=== PATIENT | female | born 1955 | race Caucasian/White ===

== ENCOUNTER 2016-06-09 12:41 | Inpatient (IN) | payer MEDICARE ==
[~2016-06-09] VITALS: Ht 175.3 cm; Wt 62.2 kg
[~2016-06-09 12:41] MED LIST: ACET1CAP18 PO; AZAT50 PO; CHOL1TAB42 PO; CICL8KIT2 TOPICAL; DIGO0.25 PO; DULO20 PO; ESSE250T PO; ESTR1TAB PO; GABA300C5 PO; INSULIN PUMP; KETO2CRE TOPICAL; LEVO112T2 PO; LIDO1SOL8 SWISH-SWAL; MEDR2.5T2 PO; NOVOLOGP2 SQ; ORAL0.1P OROPHARYNG; PANT40TA3 PO; PROM1SUP9 RECTAL; TIZA2TAB PO; ULTR50TA5 PO; ZOLP10TA3 PO; ZYRT10CA PO
[2016-06-09] MEDS ORDERED: CRAN250C PO (13:08)
[2016-06-09] MEDS ORDERED: CALC8.5C CHEW (13:08)
[2016-06-09] MEDS ORDERED: HYDR-3583 PO ×2 (13:08)
[2016-06-09] MEDS ORDERED: DIPH25CA PO (13:08)
[2016-06-09] MEDS ORDERED: PRED10 PO (13:34)
[2016-06-09] MEDS ORDERED: TRAM50TA PO (13:34)
[2016-06-09] MEDS ORDERED: PRED1 PO (13:34)
--- NOTE | 2016-06-20 16:02 | MH ---
cc: MICHELET OMALLEY M.D., ROHIT K. M.D. DATE OF ADMISSION 06/21/2016 ADMISSION DIAGNOSIS Lumbar degenerative disk disease. HISTORY OF PRESENT ILLNESS This is a 60-year-old female who presented to us for an evaluation of low back pain. She fell in 2013 on . Six weeks later she saw her benzene operator and discussed with them the pain she was having. They obtained x-rays and an MRI and the pain was controlled with muscle relaxants, pain medication, ice and heat. Two months ago the pain became unbearable. She saw her primary care doctor who ordered an MRI scan and she was referred to PT. She states her primary care physician called her back and told her not to go to PT but to see us for an evaluation. She states the low back pain radiates into the right groin and anterolateral leg. She states there is a constant ache and burning. She occasionally gets pain in the left posterior lateral leg. She states she currently has weakness in the right leg and it masood and she feels like she could fall. She has kneeled on the floor and was too weak to get up with her right leg. The pain improves with laying down. She states the leg symptoms bother her more than the back because of leg effects her mobility but they are both bad. PAST MEDICAL HISTORY 1. Diabetes mellitus. 2. Hypothyroidism. 3. Gastroesophageal reflux disease 4. Osteoarthritis. 5. Depression. 6. Behcet's disease. PAST SURGICAL HISTORY 1. Tubal ligation March 1988. 2. Right knee cartilage removal June 1973. 3. Left ulnar nerve transposition spring in 1976. 4. Cholecystectomy 1983. 5. Tonsillectomy in 1960. MEDICATIONS Under current medications: 1. Azathioprine 100 milligrams in the morning and at night. This was held one week before surgery and is to be held one week after surgery. 2. Prednisone 15.5 milligrams at 5:30 in the morning and 1.5 milligrams at noon time. 3. Levothyroxine 0.112 micrograms q.h.s. 4. Digoxin 0.25 milligrams daily. 5. Duloxetine hydrochloric acid 80 milligrams at 9:30. 6. Tramadol 50 milligrams four times daily. 7. Gabapentin 300 milligrams q.h.s. 8. Estradiol 1 milligram 9:30 a.m. 9. Medroxyprogesterone acetate 2.5 mg 9:30 a.m. 10. Pantoprazole 40 mg daily. 11. Tizanidine 2 mg b.i.d. 12. Triamcinolone paste 0.1% b.i.d. p.r.n. flare-up. 13. [place] 10 / 325 q.6h. 14. Viscous lidocaine 2% solution 15 ml orally q.6h. 15. Magic Mouthwash 5 ml swish and spit four times daily. 16. Ketoconazole 2% cream apply topically b.i.d. to fungal skin infection. 17. Ciclopirox 8% varnish apply to fingernails topically daily. 18. Benadryl 25 mg p.r.n. q.h.s. 19. Vitamin D3 1000 international units daily. 20. Calcium 1000 mg b.i.d. 21. Multivitamin daily. 22. Magnesium 500 milligrams. 23. Cranberry 4200 mg four times a day. 24. Cetirizine HCL 10 mg daily. 25. She is on an insulin pump. FAMILY HISTORY Her mother is at 72 years old, had Alzheimer's disease. Her father is at 60 years old of heart failure. Her sister is alive at 62 years old in poor health. Her brother is at 19 years old of an accident at work. 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 She is . She has two children. She does not smoke, although does state that she smokes marijuana at bedtime. She drinks alcohol 0-2 drinks daily. REVIEW OF SYSTEMS CONSTITUTIONAL: She denies any fever or chills. EARS, NOSE, AND THROAT: Positive for mouth sores and difficulty swallowing related to her Beh et's disease. CARDIOVASCULAR: No chest pain. RESPIRATORY: No cough or shortness of breath. GENITOURINARY: Positive for urinary urgency and frequency. MUSCULOSKELETAL: Positive for low back pain. SKIN: No rashes. Positive for pruritus. NEUROLOGICAL: No difficulty with speech or memory. GASTROINTESTINAL: No diarrhea. Positive for constipation. Positive for nausea. PSYCHIATRIC: Positive for anxiety and depression symptoms. ENDOCRINE: Polyuria and polydipsia. HEMATOLOGIC: Positive for bruising or bleeding tendencies. PHYSICAL EXAMINATION HEAD: Normocephalic, atraumatic. NECK: Supple. No carotid bruits heard on auscultation. LUNGS: Clear to auscultation bilaterally. HEART: Regular rate and rhythm. Normal S1-S2. ABDOMEN: Soft and nontender. Positive bowel sounds. SKIN: Reveals no cyanosis or erythema. MUSCULOSKELETAL: She has left iliopsoas weakness at 3/5 otherwise her strength her 5/5 in the lower extremities. She ambulates with a cane. She wears a right knee brace for a partially torn right ACL. NEUROLOGICAL: Awake and alert, oriented. Cranial nerves II through XII appear grossly intact. Speech is fluent. Comprehension is good. Sensation is intact in the lower extremities. Left patella and bilateral Achilles reflexes are very diminished in the lower extremities. The right patella is not assessed secondary to her knee brace and partially torn right ACL. IMAGING Data reviewed, reviewed an MRI of the lumbar spine from April 28, 2016 which reveals severe L4-L5 spinal stenosis from a combination of disc protrusion and facet hypertrophy as well as severe degenerative disk disease with disk height collapse and grade 1 spondylolisthesis. She also has moderate to severe L2-L3 spinal stenosis from a disk protrusion and facet arthropathy and degenerative disk disease. IMPRESSION A 60-year-old female with a chronic history of low back pain with exacerbation several months ago. Her pain radiates into the right lower extremity down to the foot, at times the lateral aspect of the calf. She also has partial chronic right ACL tear and uses a brace and relates pain from the knee and swelling at times also. She has been taking [place] 10/325 4-5 pills daily along with Gabapentin and muscle relaxers but this is not controlling her pain. She is very limited in her activity status. She has severe L4-L5 and L2-L3 spinal stenosis along with a grade 1 L4-L5 spondylolisthesis with degenerative disk disease. PLAN We have discussed treatment options which include physical therapy to prevent further deconditioning and weakness and also the possibility of surgery which would involve an L2-L3 decompressive laminectomy and L4-L5 transforaminal decompression with interbody fusion. The procedure as well as the risks, benefits, alternative and recovery time were explained in great detail with the patient. We have discussed the risks involved with surgery include but not limited to bleeding, infection, muscle weakness, voice hoarseness, difficulty swallowing, heart attack, stroke, blood clots, non fusion, scar tissue formation among others. The procedure was explained using spine models in the office and all of her questions were answered to her satisfaction. No guarantees as to the results of the surgery were given to the patient. She also has several medical comorbidities in particular insulin-dependent diabetes mellitus, SVT and Behcet's disease with chronic steroid therapy which places her at least a moderate risk for complications which include the healing process and infection. The patient again states that she understands the procedure as well as the risks involved, especially given her medical comorbidities and she is requesting that we proceed with surgical intervention. She was therefore scheduled accordingly. DICTATED BY: Waylon Benton PA-C MD RAAD Rodriguez/KK /3:03 PM /3:32 PM
[2016-06-21] MEDS ORDERED: NOVOLOGP2 SQ (06:20)
[2016-06-21] MEDS ORDERED: VANCOMYCIN 1,000 MG/NS 250ML (for <70 kg) IV SCH ×2 (06:30)
[2016-06-21] MEDS ORDERED: LACTATED RINGER'S 1000 ML IV SCH (06:30)
[2016-06-21] MEDS ORDERED: INSULIN HUMAN REGULAR 1,000 UNITS/10 ML VIAL SQ PRN (06:30)
[2016-06-21] MEDS ORDERED: SODIUM CHLORID 0.9% 500 ML IV SCH (06:30)
[2016-06-21] MEDS ORDERED: SODIUM CHLOR 0.9% 1000 ML INJ 1,000 ML IV SCH (06:30)
[2016-06-21] MEDS ORDERED: METOPROLOL TARTRATE 25 MG TAB PO PRN (06:30)
[2016-06-21 06:38] LABS: AUTOMATED NEUTROPHIL # 4.6 TH/MM3 (1.8-7.7); BASOPHIL # 0.1 TH/MM3 (0-0.2); EOSINOPHIL % 0.2 % (0.0-4.0); HEMATOCRIT 34.9 % (35.0-46.0); LYMPHOCYTE # 0.7 TH/MM3 (1.0-4.8); MEAN CELL VOLUME 121.3 FL (80.0-100.0); MEAN CORPUSCULAR HEMOGLOBIN 42.6 PG (27.0-34.0); MEAN CORPUSCULAR HGB CONC 35.1 % (32.0-36.0); MONO % 12.9 % (0.0-8.0); NEUT % 74.9 % (16.0-70.0); PLATELET COUNT 432 TH/MM3 (150-450); RED BLOOD COUNT 2.87 MIL/MM3 (4.00-5.30); RED CELL DISTRIBUTION WIDTH 15.3 % (11.6-17.2); WHITE BLOOD COUNT 6.2 TH/MM3 (4.0-11.0)
[2016-06-21 06:42] VITALS: BP 142/73; PULSE 89; RESP 20; TEMP 98.6; O2SAT 100
[2016-06-21 06:58] LABS: HEMO FLAGS AUTO DIFF
[2016-06-21 07:28] LABS: BANDS 11 % (0-6); EOSINOPHILS 1 % (0-4); MYELOCYTES 1 % (0-0); PLATELET ESTIMATE SMEAR NORMAL (NORMAL); PLATELET MORPHOLOGY NORMAL (NORMAL); POLYS (SEG NEUTROPHILS) 68 % (16-70); SCAN/DIFF FINAL DIFF MANUAL; WBC DIFF SAMPLE 100
[2016-06-21] MEDS ORDERED: THROMBIN (TOPICAL) 5,000 UNIT VIAL ONE (07:40)
[2016-06-21] MEDS ORDERED: GELFOAM SIZE 100 ONE ×2 (07:40→07:47)
[2016-06-21] MEDS ORDERED: BUPIVACAINE/EPINEPHRINE 0.25% PF 30 ML VIAL ONE (07:42)
[2016-06-21] MEDS ORDERED: HYDROmorphone HCL PF 2 MG/ML VIAL ONE (08:01)
[2016-06-21] MEDS ORDERED: ARTIFICIAL TEARS OPTH OINT 3.5 APPLIC/3.5 GM TUBO ONE (08:01)
[2016-06-21] MEDS ORDERED: KETAMINE HCL 500 MG/5 ML VIAL ONE (08:01)
[2016-06-21] MEDS ORDERED: HYDROCORTISONE SOD SUCCINATE 100 MG VIAL ONE (08:05)
[2016-06-21] MEDS ORDERED: MIDAZOLAM HCL 2 MG/2 ML VIAL ONE (08:07)
[2016-06-21] MEDS: VANCOMYCIN HCL 1000 MG VIAL ONE ×2 (09:01→09:11)
[2016-06-21] MEDS ORDERED: BUPIVACAINE/EPINEPHRINE 0.5% 50 ML VIAL INFIL ONE (09:01)
[2016-06-21] MEDS ORDERED: VANCOMYCIN HCL 1000 MG VIAL OTHER ONE (11:54)
[2016-06-21] MEDS ORDERED: PHENYLEPH/NS 1000 MCG/10 ML SYR IV ONE (12:00)
[2016-06-21] MEDS ORDERED: NORMOSOL R INJ 1,000 ML IV ONE (12:00)
[2016-06-21] MEDS ORDERED: SODIUM CHLOR 0.9% 250 ML INJ 500 ML IV ONE (12:00)
[2016-06-21] MEDS ORDERED: ONDANSETRON HCL 4 MG/2 ML VIAL IV PUSH ONE (12:00)
[2016-06-21] MEDS ORDERED: PROPOFOL 200 MG/20 ML AMP IV ONE (12:00)
[2016-06-21] MEDS ORDERED: fentaNYL CITRATE 250 MCG/5 ML AMP ONE (12:38)
[2016-06-21] MEDS ORDERED: *morphine SULFATE 8 MG/ML PERIprocedure ONLY ONE ×2 (12:43→13:09)
[2016-06-21] MEDS ORDERED: LIDOCAINE VISCOUS 2% SOLN 15 ML UDC SWISH-SWAL PRN (12:45)
[2016-06-21] MEDS ORDERED: CALCIUM GLUCONATE INJ 1 GM in SODIUM CHLORIDE 0.9% INJ 100 ML IV PRN (12:45)
[2016-06-21] MEDS ORDERED: SODIUM CHLORIDE 0.9% FLUSH 5 ML FLUSH IVF PRN (12:45)
[2016-06-21] MEDS ORDERED: diphenhydrAMINE HCL 50 MG/ML VIAL IV PRN (12:45)
[2016-06-21] MEDS ORDERED: POTASSIUM CHLOR 20 MEQ PREMIX 100 ML IV PRN (12:45)
[2016-06-21] MEDS ORDERED: MAGNESIUM HYDROXIDE SUSP 30 ML CUP PO PRN (12:45)
[2016-06-21] MEDS ORDERED: CYCLOBENZAPRINE HCL 10 MG TAB PO PRN (12:45)
[2016-06-21] MEDS ORDERED: diphenhydrAMINE HCL 25 MG CAP PO PRN (12:45)
[2016-06-21] MEDS ORDERED: BISACODYL 10 MG SUPP PR PRN (12:45)
[2016-06-21] MEDS ORDERED: ALUMINUM/MAGNESIUM/SIMETH 30 ML CUP PO PRN (12:45)
[2016-06-21] MEDS ORDERED: ACETAMINOPHEN/HYDROcodone 325 MG/10 MG TAB PO PRN (12:45)
[2016-06-21] MEDS ORDERED: DEXTROSE 50% IN WATER 50 ML VIAL(D50) IV PUSH PRN (12:45)
[2016-06-21] MEDS ORDERED: traMADol HCL 50 MG TAB PO PRN (12:45)
[2016-06-21] MEDS ORDERED: MAGNESIUM SULFATE INJ 2 GM in SODIUM CHLORIDE 0.9% INJ 100 ML IV PRN (12:45)
[2016-06-21] MEDS ORDERED: RESP: ALBUTEROL 2.5 MG/3 ML NEB (PRN) NEB (12:45)
[2016-06-21] MEDS ORDERED: NALOXONE HCL 0.4 MG/ML AMP IV PRN (12:45)
[2016-06-21] MEDS ORDERED: PROMETHAZINE INJ 25 MG/ML VIAL IM PRN (12:45)
[2016-06-21] MEDS ORDERED: DO NOT ADM ANY ANTICOAGULANT DRUGS XX PRN (12:45)
[2016-06-21] MEDS ORDERED: ONDANSETRON HCL 4 MG/2 ML VIAL IV PRN (12:45)
[2016-06-21] MEDS ORDERED: ACETAMINOPHEN 325 MG TAB PO PRN (12:45)
[2016-06-21] MEDS ORDERED: PROMETHAZINE HCL 25 MG SUPP RECTAL PRN (12:45)
[2016-06-21] MEDS ORDERED: GLUCAGON 1 MG/ML VIAL OTHER PRN (12:45)
[2016-06-21] MEDS ORDERED: cloNIDine HCL 0.1 MG TAB PO PRN (12:45)
--- NOTE | 2016-06-21 12:50 | PD.OP ---
cc: Rafiq Martins Jr., MD Operative Report Date of Surgery: Jun 21, 2016 Preoperative Diagnosis: L2-3 and L4-5 facet and ligamentum flavum hypertrophy with associated disc protrusion and severe spinal stenosis; L4-5 severe degenerative disc disease with a grade 1 spondylolisthesis; intractable low back pain with radiculopathy and neurogenic claudication Postoperative Diagnosis: Same Procedure: Lumbar L4-5 transforaminal interbody fusion; L2, L3, L4, and L5 decompressive laminotomy with medial facetectomies and microdiscectomy; L4-5 pedicle screw fixation; L4-5 interbody cage placement; microsurgical technique Anesthesia: Gen. endotracheal by Elisa Lau Surgeon: Gregorio Stevenson M.D. Senior Sharepoint Architect(s): Nadeen Fay Operation and Findings: Following initiation of general endotracheal anesthesia, the patient had a Díaz catheter placed along with sequential compression devices. A gram of vancomycin was administered intravenously and he was turned in a prone position on a Kristopher frame, on a Juliocesar table, and all pressure points adequately padded. The lumbosacral region was then prepped with Chloraprep and sterilely draped with Ioban along the usual sterile draping. A skin incision was then made extending from the L2-L5 levels after infiltrating the skin with 0.5% Marcaine with epinephrine solution extending down through the fascia. The muscle fibers were split using avascular fatty plane and detached from the underlying facets, transverse process and lamina on the right side and a self- retaining retractor used for exposure. Intraoperative fluoroscopy was also used for level of confirmation along with microscope magnification for further dissection. There was significant facet and ligamentum flavum hypertrophy noted at the L4-5 levels. Right L4-5 medial half of the facet was resected with a drill bit along with the lamina and there was severe foraminal and lateral recess stenosis from hypertrophied ligamentum flavum and facet which were decompressed bilaterally through the unilateral approach. There was significant disc height collapse along with disc protrusion and spondylolisthesis also leading to foraminal stenosis. Epidural hemostasis was achieved with bipolar cautery and Gelfoam with thrombin. Subsequently entered into the disc space at the L4-5 level with a #15 blade and claribel were used for discectomy. I then placed PEEK cage packed with local autograft bone and more local autograft bone was packed adjacent to the cage in interspace for added interbody fusion. With placement of the cage, I was able to distract the interspace and opened up the foramen further bilaterally. Subsequently in order to facilitate the fusion and provide stabilization, pedicle screw fixation was undertaken using Fitzwilliam spine screws on entry point at the right L4-5 levels at the junction of the transverse process and facet. Subsequently using AP and lateral fluoroscopy tap and screw placement. The screws were then connected with a sara and locked in place with caps. The construct appeared very secure at this point. A right L2-3 hemilaminotomy with the medial facetectomy also undertaken with drillbit and Kerrisons and underlying hypertrophied ligamentum flavum decompressed circumferentially to the right-sided approach. Central disc herniation was also noted and this was removed with pituitary forceps and the spinal canal decompressed. The area was then copiously irrigated with Vancomycin solution and powder. The retractors were removed and the bipolar cautery used for hemostasis. The muscle fascia was then approximated using 2-0 Vicryl interrupted stitches and then 3-0 Vicryl subcuticular stitches also placed in interrupted fashion. The final skin closure was completed with Mastisol and Steri-Strips. A sterile dressing was then applied. The patient then turned in supine position, extubated and taken to recovery room. There were no intraoperative complications. All sponge and needle counts were correct at the end of procedure. Estimated blood loss about 100 ml. Gregorio Stevenson MD Jun 21, 2016 12:50
[2016-06-21] MEDS ORDERED: NON-FORMULARY DRUG (Magnesium 250 MG) PO SCH (13:00)
[2016-06-21] MEDS: NS + KCL 20 MEQ INJ 1,000 ML IV SCH (13:00)
[2016-06-21 13:18] LABS: BASOPHIL % 0.3 % (0.0-2.0); HEMATOCRIT 31.1 % (35.0-46.0); LYMPH % 4.4 % (9.0-44.0); LYMPHOCYTE # 0.4 TH/MM3 (1.0-4.8); MEAN CELL VOLUME 121.7 FL (80.0-100.0); MEAN CORPUSCULAR HEMOGLOBIN 42.9 PG (27.0-34.0); MEAN CORPUSCULAR HGB CONC 35.2 % (32.0-36.0); NEUT % 85.3 % (16.0-70.0); PLATELET COUNT 378 TH/MM3 (150-450); RED BLOOD COUNT 2.55 MIL/MM3 (4.00-5.30); RED CELL DISTRIBUTION WIDTH 15.5 % (11.6-17.2); WHITE BLOOD COUNT 8.2 TH/MM3 (4.0-11.0)
[2016-06-21 13:19] LABS: HEMO FLAGS AUTO DIFF
[2016-06-21 13:42] LABS: POTASSIUM 3.5 MEQ/L (3.5-5.1)
[2016-06-21] MEDS ORDERED: PILL SPLITTER OTHER PRN (13:45)
[2016-06-21 13:49] LABS: BANDS 4 % (0-6); NEUTROPHIL # MANUAL DIFF 7.3 TH/MM3 (1.8-7.7); POLYS (SEG NEUTROPHILS) 85 % (16-70); WBC DIFF SAMPLE 100
[2016-06-21 13:50] LABS: PLATELET ESTIMATE SMEAR NORMAL (NORMAL); PLATELET MORPHOLOGY NORMAL (NORMAL); SCAN/DIFF FINAL DIFF MANUAL
[2016-06-21] MEDS: PCA - TOTAL MG MORPHINE DELIVERED PER SHIFT SCH ×2 (14:00→21:23)
[2016-06-21] MEDS: MORPHINE SULFATE 30 MG/30 ML PCA IV SCH (14:11)
[2016-06-21 14:15] VITALS: BP 116/56; PULSE 112; RESP 16; TEMP 95.9; O2SAT 98
--- NOTE | 2016-06-21 14:19 | PD.CONS ---
History of Present Illness Service Family Medicine Consult Requested By Neurosurgery, Dr. Gregorio Stevenson Reason for Consult Medical Management Primary Care Physician Rafiq Martins MD Diagnoses: (1) Paroxysmal atrial tachycardia (2) Diabetes mellitus (3) Spinal stenosis of lumbar region (4) Rheumatoid arthritis (5) GENERALIZED ANXIETY DIS (6) Behcets syndrome (7) Lichen planus (8) Tinea unguium (9) Chronic pain syndrome (10) Hypothyroidism, unspecified History of Present Illness Mrs. Arce is a very pleasant 60-year-old female, who was post operative day # 0 after having a L3-L4 disc fusion, and L2-L3 laminectomy. Her PCP is Dr. Martins, and we are consulted for assistance in medical management of chronic diseases which include Behcet's vasculitis, supraventricular tachycardia, hypothyroidism, vitamin D deficiency, chronic pain syndrome, depression, insulin -dependent diabetes. Overall, the patient reports that she feels well. She is able to move all of her extremities without difficulty, and has no decrease in sensation. She denies headaches or blurry vision. Her back pain is well-controlled. She is on a morphine MANDOLIN REPAIRER pump. She typically uses a insulin pump, however stopped this at 7 AM this morning. She reports that her diabetes has been "difficult to control." When looking at her pump, she received 29 units of NovoLog over the past 24 hours. She also reports some constipation, and is requesting a "laxative." Her negative turner is Dr. 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 She denies any chest pain, cough,shortness of breath , or abdominal pain. She expressed that she was very happy with the care she received from Dr. Stevenson. Review of Systems Other Complete review of systems negative. Past Family Social History Allergies: Coded Allergies: Pecan (Verified Allergy, Intermediate, joint swelling, elevated sed rate, 06/21/16) Monroe (Verified Allergy, Intermediate, joint swelling, elevated sed rate , 06/21/16) Cipro (Verified Adverse Reaction, Intermediate, 06/21/16) Slight increase in tendon rupture is possible side effect with patient being on prednisone in addition to ciprofloxacin, especially in patients greater than 60 years old Codeine (Verified Adverse Reaction, Mild, nausea, 06/21/16) Uncoded Allergies: TAPE (Allergy, Intermediate, SKIN PEELS, 12/22/16) Pt states okay for silk or paper tape. Past Medical History SVT Bechet's vasculitis Rheumatoid arthritis Chronic pain syndrome Hypothyroid Vitamin D deficiency, Chronic constipation Insulin-dependent diabetes requiring an insulin pump Physical Exam Vital Signs Vital Signs Date Time Temp Pulse Resp B/P Pulse Ox O2 Delivery O2 Flow Rate FiO2 06/21/16 06:42 98.6 89 20 142/73 100 Physical Exam GENERAL: This is a well-nourished, well-developed patient, in no apparent distress. SKIN: No rashes, ecchymoses or lesions. Cool and dry. HEAD: Atraumatic. Normocephalic. No temporal or scalp tenderness. EYES: Pupils equal round and reactive. Extraocular motions intact. No scleral icterus. No injection or drainage. ENT: Nose without bleeding, purulent drainage or septal hematoma. Throat without erythema, tonsillar hypertrophy or exudate. Uvula midline. Airway patent. NECK: Trachea midline. No JVD or lymphadenopathy. Supple, nontender, no meningeal signs. CARDIOVASCULAR: Regular rate and rhythm, 1/6 systolic ejection murmur over the right sternal border, no gallops, or rubs. RESPIRATORY: Clear to auscultation. Breath sounds equal bilaterally. No wheezes , rales, or rhonchi. GASTROINTESTINAL: Abdomen soft, non-tender, nondistended. No hepato-splenomegaly , or palpable masses. No guarding. MUSCULOSKELETAL: Extremities without clubbing, cyanosis, or edema. No joint tenderness, effusion, or edema noted. No calf tenderness. Negative Homans sign bilaterally. NEUROLOGICAL: Awake and alert. Cranial nerves II through XII intact. Motor and sensory grossly within normal limits. Five out of 5 muscle strength in all muscle groups. Normal speech. Normal cerebellar testing. Laboratory Laboratory Tests Test 06/21/16 06/21/16 06:21 12:58 White Blood Count 6.2 8.2 Red Blood Count 2.87 2.55 Hemoglobin 12.2 10.9 Hematocrit 34.9 31.1 Mean Corpuscular Volume 121.3 121.7 Mean Corpuscular Hemoglobin 42.6 42.9 Mean Corpuscular Hemoglobin 35.1 35.2 Concent Red Cell Distribution Width 15.3 15.5 Platelet Count 432 378 Mean Platelet Volume 6.9 6.7 Neutrophils (%) (Auto) 74.9 85.3 Lymphocytes (%) (Auto) 11.0 4.4 Monocytes (%) (Auto) 12.9 10.0 Eosinophils (%) (Auto) 0.2 0.0 Basophils (%) (Auto) 1.0 0.3 Neutrophils # (Auto) 4.6 7.0 Lymphocytes # (Auto) 0.7 0.4 Monocytes # (Auto) 0.8 0.8 Eosinophils # (Auto) 0.0 0.0 Basophils # (Auto) 0.1 0.0 CBC Comment AUTO DIFF AUTO DIFF Differential Total Cells 100 100 Counted Neutrophils % (Manual) 68 85 Band Neutrophils % 11 4 Lymphocytes % 9 5 Monocytes % 10 6 Eosinophils % 1 Neutrophils # (Manual) 5.0 7.3 Myelocytes 1 Differential Comment FINAL DIFF FINAL DIFF MANUAL MANUAL Platelet Estimate NORMAL NORMAL Platelet Morphology Comment NORMAL NORMAL Blood Type A POSITIVE Antibody Screen NEGATIVE Blood Bank Comment Sodium Level 139 Potassium Level 3.5 Chloride Level 104 Carbon Dioxide Level 25.0 Anion Gap 10 Blood Urea Nitrogen 18 Creatinine 0.84 Estimat Glomerular Filtration 69 Rate Random Glucose 167 Calcium Level 7.9 Magnesium Level 2.0 Result Diagram: 06/21/16 1258 06/21/16 1258 Imaging Last 72 hours Impressions Lumbar Spine X-Ray 06/21/16 0000 Signed Impressions: Service Date/Time: Tuesday, June 21, 2016 08:24 - CONCLUSION: Good position and alignment on this postoperative exam. Kingsley De La Rosa MD Assessment and Plan Problem List: (1) RA (rheumatoid arthritis) Status: Acute Plan: Continue with prednisone 15.5 mg q AC (05:45 am) and 1.5 mg at 11:45 am daily. Stress dose steroid of hydrocortisone 100 mg q 8 hours. If having low BP, altered mental status, bradycardia, would consider giving stress dose of solumedrol. (2) Hypothyroidism, unspecified Status: Chronic Plan: Continue with levothyroxine. (3) Diabetes mellitus Status: Chronic Plan: Reports taking 29 units every 24 hours of NovoLog. Insulin sensitivity factor: 1 unit of fast acting insulin should lower glucose 50-60 mg/dL. Start with low-dose insulin sliding scale (NovoLOG). Last hemoglobin A1c was 7.0%. Patient is requesting to check her blood sugars at bedside. I said that this would be fine, but the nurses will also have to check every 4 hours. 1800 Diabetic diet. (4) Paroxysmal atrial tachycardia Status: Chronic Plan: Sinus rhythm at a rate of 90 bpm. Regular. Continue to monitor. Continue digoxin 0.25 mg daily. (5) Chronic pain syndrome Status: Chronic Plan: Continue with the morphine MANDOLIN REPAIRER. Pain control being managed primarily by surgical team. (6) Depression Status: Chronic Plan: Continue home Cymbalta 80 mg daily. Mood stable on exam. (7) Spondylolisthesis of lumbar region Status: Acute Plan: Status post L4-L5 fusion, and L2-L3 laminectomy. (8) Lichen planus Status: Acute Plan: Continue with ketoconazole cream. (9) Osteoporosis Status: Acute Plan: Continue with home vitamin D3 therapy. Anuj Solis MD R2 Jun 21, 2016 14:19
[2016-06-21] MEDS: HYDROCORTISONE SOD SUCCINATE 100 MG VIAL IV PUSH SCH ×2 (15:08→21:19)
--- NOTE | 2016-06-21 15:27 | RADRPT ---
EXAM DATE/TIME: 06/21/2016 08:24 [facility] COMPARISON: No previous studies available for comparison. INDICATIONS : Lumbar spine L4-5 fusion with pedicle screws. OR. MEDICAL HISTORY : None. SURGICAL HISTORY : None. ENCOUNTER: Initial ACUITY: 1 day PAIN SCORE: Non-responsive. LOCATION: Right Lumbar L4-5 FINDINGS: Status post lumbar spinal fusion at L4-5 on the right. There is good position alignment of the fusion . The hardware is grossly intact. CONCLUSION: Good position and alignment on this postoperative exam. Kingsley De La Rosa MD on June 21, 2016 at 15:23 Board Certified Radiologist. This report was verified electronically.
[2016-06-21] MEDS ORDERED: INSULIN NovoLIN REGULAR SUPPLEMENTAL SCALE SQ SCH (16:00)
[2016-06-21] MEDS ORDERED: INSULIN ASPART SUPPLEMENTAL SCALE SQ SCH (16:00)
[2016-06-21] MEDS ORDERED: POLYETHYLENE GLYCOL 17 GM PKG PO ONE (16:00)
[2016-06-21] MEDS: azaTHIOprine 50 MG TAB PO SCH (16:54)
[2016-06-21 20:39] VITALS: BP 92/54; PULSE 92; RESP 16; TEMP 97; O2SAT 95
[2016-06-21] MEDS ORDERED: DOCUSATE SODIUM 100 MG CAP PO SCH (21:00)
[2016-06-21] MEDS: KETOCONAZOLE 2% CREAM 15 GM TOPICAL SCH (21:00)
[2016-06-21] MEDS: INSULIN ASPART SUPPLEMENTAL SCALE SQ SCH (21:00)
[2016-06-21] MEDS: TRIAMCINOLONE ACET 0.1% IN ORABASE PASTE 5 GM TUBE OROPHARYNG SCH (21:00)
[2016-06-21] MEDS ORDERED: CICLOPIROX TOPICAL SCH (21:00)
[2016-06-21] MEDS ORDERED: [UNRECOGNIZED DRUG - OTHER] CHEW SCH (21:00)
[2016-06-21] MEDS: SODIUM CHLORIDE 0.9% FLUSH 5 ML FLUSH IVF SCH (21:00)
[2016-06-21] MEDS: GABAPENTIN 300 MG CAP PO SCH (21:19)
[2016-06-21 23:00] VITALS: O2SAT 96
[2016-06-22] MEDS: ZOLPIDEM TARTRATE 10 MG TAB PO PRN ×2 (00:23→21:06)
[2016-06-22 00:38] VITALS: BP 118/59; PULSE 99; RESP 17; TEMP 97.2; O2SAT 96
[2016-06-22] MEDS: MORPHINE SULFATE 30 MG/30 ML PCA IV SCH ×2 (00:58→17:04)
[2016-06-22] MEDS: NS + KCL 20 MEQ INJ 1,000 ML IV SCH ×2 (03:14→17:20)
[2016-06-22] MEDS ORDERED: INSULIN ASPART 1,000 UNITS/10 ML VIAL SQ ONE (04:00)
[2016-06-22 04:25] VITALS: BP 117/57; PULSE 117; RESP 17; TEMP 96.9; O2SAT 97
[2016-06-22] MEDS: MENTHOL LOZENGE SUCK-ON PRN ×2 (04:32→08:55)
[2016-06-22] MEDS: azaTHIOprine 50 MG TAB PO SCH ×2 (05:57→17:14)
[2016-06-22] MEDS: PCA - TOTAL MG MORPHINE DELIVERED PER SHIFT SCH ×3 (06:00→22:00)
[2016-06-22] MEDS: HYDROCORTISONE SOD SUCCINATE 100 MG VIAL IV PUSH SCH (06:07)
[2016-06-22] MEDS: LEVOTHYROXINE SODIUM 112 MCG TAB PO SCH (06:07)
[2016-06-22] MEDS: INSULIN ASPART SUPPLEMENTAL SCALE SQ SCH (06:18)
[2016-06-22] MEDS ORDERED: INSULIN ASPART SUPPLEMENTAL SCALE SQ SCH (07:00)
[2016-06-22 07:11] LABS: AUTOMATED NEUTROPHIL # 9.7 TH/MM3 (1.8-7.7); BASOPHIL % 0.1 % (0.0-2.0); HEMATOCRIT 28.9 % (35.0-46.0); HEMO FLAGS DIFF FINAL; LYMPH % 5.6 % (9.0-44.0); LYMPHOCYTE # 0.7 TH/MM3 (1.0-4.8); MEAN CELL VOLUME 123.2 FL (80.0-100.0); MEAN CORPUSCULAR HEMOGLOBIN 42.1 PG (27.0-34.0); MEAN CORPUSCULAR HGB CONC 34.2 % (32.0-36.0); MONO % 12.1 % (0.0-8.0); NEUT % 82.2 % (16.0-70.0); PLATELET COUNT 336 TH/MM3 (150-450); RED BLOOD COUNT 2.35 MIL/MM3 (4.00-5.30); RED CELL DISTRIBUTION WIDTH 15.1 % (11.6-17.2); WHITE BLOOD COUNT 11.8 TH/MM3 (4.0-11.0)
[2016-06-22 07:44] LABS: ALKALINE PHOSPHATASE 44 U/L (45-117); ALT (GPT) 28 U/L (10-53); ANION GAP 9 MEQ/L (5-15); AST (GOT) 28 U/L (15-37); BICARBONATE 25.3 MEQ/L (21.0-32.0); BLOOD UREA NITROGEN 17 MG/DL (7-18); CHLORIDE 106 MEQ/L (98-107); GLOMERULAR FILTRATION RATE 58 ML/MIN (>89); MAGNESIUM 2.1 MG/DL (1.5-2.5); POTASSIUM 4.3 MEQ/L (3.5-5.1); SODIUM (NA) 140 MEQ/L (136-145); TOTAL BILIRUBIN ADULT 0.4 MG/DL (0.2-1.0)
[2016-06-22] MEDS ORDERED: MAGNESIUM HYDROXIDE SUSP 30 ML CUP PO PRN (08:00)
[2016-06-22 08:12] VITALS: BP 125/58; PULSE 102; RESP 18; TEMP 96.8; O2SAT 100
[2016-06-22] MEDS: CHOLECALCIFEROL (VIT D3) 1000 UNIT TAB PO SCH (08:53)
[2016-06-22] MEDS: ESTRADIOL 1 MG TAB PO SCH (08:54)
[2016-06-22] MEDS: CETIRIZINE HCL 10 MG TAB PO SCH (08:54)
[2016-06-22] MEDS: PANTOPRAZOLE SOD 40 MG DELAYED RELEASE TAB PO SCH (08:54)
[2016-06-22] MEDS: DIGOXIN 0.25 MG TAB PO SCH (08:54)
[2016-06-22] MEDS: DOCUSATE SODIUM 50 MG/SENNA 8.6 MG TAB PO SCH ×2 (08:55→21:06)
[2016-06-22] MEDS: GABAPENTIN 300 MG CAP PO SCH ×2 (08:55→21:05)
[2016-06-22] MEDS: KETOCONAZOLE 2% CREAM 15 GM TOPICAL SCH ×2 (09:00→22:21)
[2016-06-22] MEDS: DULoxetine HCl DR 20 MG CAP PO SCH ×2 (09:00→12:42)
[2016-06-22] MEDS: TRIAMCINOLONE ACET 0.1% IN ORABASE PASTE 5 GM TUBE OROPHARYNG SCH ×2 (09:00→21:00)
--- NOTE | 2016-06-22 09:07 | HHI.NSPN ---
(Waylon Benton) History Chief Complaint: Incisional pain controlled with PIPE FITTER FIRE SPRINKLER SYSTEMS. (Waylon Benton) Interval History 06/22/16: Pt underwent a L2-L5 decompressive laminotomy with medial facetectomy and microdiscectomy with L4/L5 TLIF with pedicle screw fixation. She complains of incisional pain and some pain radiating into the right anterior thigh but not past the knee. She states she got up into the chair with her brace on yesterday. She states she feels stronger in her legs. (Waylon Benton) Review of Systems General: Negative for: fever, chills, insomnia Respiratory: Negative for: shortness of breath, cough, sputum Cardiovascular: Negative for: chest pain Gastrointestinal: Negative for: nausea, vomitting, diarrhea, constipation ( Waylon Benton) Exam Results Vital Signs Date Time Temp Pulse Resp B/P Pulse Ox O2 Delivery O2 Flow Rate FiO2 06/22/16 08:12 96.8 102 18 125/58 100 06/21/16 23:00 Nasal Cannula 2.00 Intake and Output 06/21/16 06/21/16 06/22/16 08:00 16:00 00:00 Intake Total 2000 ml 2160 ml Output Total 1600 ml 2375 ml Balance 400 ml -215 ml (Waylon Benton) Physical Examination Resp: CTA bilaterally Heart: NSR no murmurs Abd: Soft positive bs Skin: Pt log rolled. Incision clean and dry. No erythema or drainage. New bandage placed. Muscle: Moves all 4 extremities with good strength. Neuro: Pt awake and alert. Follows commands well. Speech clear and appropriate. (Waylon Benton) Lab, Micro, Other Results Laboratory Tests Test 06/21/16 06/22/16 12:58 06:32 White Blood Count 8.2 TH/MM3 11.8 TH/MM3 Red Blood Count 2.55 MIL/MM3 2.35 MIL/MM3 Hemoglobin 10.9 GM/DL 9.9 GM/DL Hematocrit 31.1 % 28.9 % Mean Corpuscular Volume 121.7 FL 123.2 FL Mean Corpuscular Hemoglobin 42.9 PG 42.1 PG Mean Corpuscular Hemoglobin 35.2 % 34.2 % Concent Red Cell Distribution Width 15.5 % 15.1 % Platelet Count 378 TH/MM3 336 TH/MM3 Mean Platelet Volume 6.7 FL 6.9 FL Neutrophils (%) (Auto) 85.3 % 82.2 % Lymphocytes (%) (Auto) 4.4 % 5.6 % Monocytes (%) (Auto) 10.0 % 12.1 % Eosinophils (%) (Auto) 0.0 % 0.0 % Basophils (%) (Auto) 0.3 % 0.1 % Neutrophils # (Auto) 7.0 TH/MM3 9.7 TH/MM3 Lymphocytes # (Auto) 0.4 TH/MM3 0.7 TH/MM3 Monocytes # (Auto) 0.8 TH/MM3 1.4 TH/MM3 Eosinophils # (Auto) 0.0 TH/MM3 0.0 TH/MM3 Basophils # (Auto) 0.0 TH/MM3 0.0 TH/MM3 CBC Comment AUTO DIFF DIFF FINAL Differential Total Cells 100 Counted Neutrophils % (Manual) 85 % Band Neutrophils % 4 % Lymphocytes % 5 % Monocytes % 6 % Neutrophils # (Manual) 7.3 TH/MM3 Differential Comment FINAL DIFF MANUAL Platelet Estimate NORMAL Platelet Morphology Comment NORMAL Sodium Level 139 MEQ/L 140 MEQ/L Potassium Level 3.5 MEQ/L 4.3 MEQ/L Chloride Level 104 MEQ/L 106 MEQ/L Carbon Dioxide Level 25.0 MEQ/L 25.3 MEQ/L Anion Gap 10 MEQ/L 9 MEQ/L Blood Urea Nitrogen 18 MG/DL 17 MG/DL Creatinine 0.84 MG/DL 0.97 MG/DL Estimat Glomerular Filtration 69 ML/MIN 58 ML/MIN Rate Random Glucose 167 MG/DL 268 MG/DL Calcium Level 7.9 MG/DL 8.2 MG/DL Magnesium Level 2.0 MG/DL 2.1 MG/DL Total Bilirubin 0.4 MG/DL Aspartate Amino Transf 28 U/L (AST/SGOT) Alanine Aminotransferase 28 U/L (ALT/SGPT) Alkaline Phosphatase 44 U/L Total Protein 4.8 GM/DL Albumin 2.5 GM/DL 06/21/16 06/21/16 06/22/16 15:00 23:00 07:00 Intake Total 2000 ml 2160 ml 1200 ml Output Total 1600 ml 2375 ml 2475 ml Balance 400 ml -215 ml -1275 ml Intake Oral 2160 ml 1200 ml IV Total 400 ml Other 1600 ml Output Urine Total 1500 ml 2375 ml 2475 ml Estimated Blood Loss 100 ml # Bowel Movements 0 0 (Waylon Benton) Medical Decision Making Impression and Plan A: 60 y/o FM s/p L2-L5 decompressive laminotomy with medial facetectomy and microdiscectomy with L4/L5 TLIF with pedicle screw fixation. P: Continue to monitor Continue with PT Continue with pain control (Waylon Benton) Attending Statement The exam, history, and the medical decision-making described in the above note were completed with the assistance of the mid-level provider. I reviewed and agree with the findings presented. I attest that I had a [id number] encounter with the patient on the same day, and personally performed and documented my assessment and findings in the medical record. (Gregorio Stevenson MD) Waylon Benton Jun 22, 2016 09:06 Gregorio Stevenson MD Jun 22, 2016 15:47
--- NOTE | 2016-06-22 09:54 | HHI.FPPN ---
Subjective Remarks Patient seen and examined this morning. She reports that she was up to the chair yesterday with help from nursing and physical therapy. She says she does not have any pain as long as she remembers to press the DIE SET UP WORKER pump button. She is working with PT daily. She has had mild nausea, but no vomiting. Denies fevers, chills, chest pain, shortness of breath, headaches or blurry vision, or calf pain. She states she has arthritis pain which is normal for her. She feels constipated from the pain medicine, and says that she received MiraLAX yesterday and is planning to take this again today. No bowel movement since admission. She has a Díaz in place. Denies pain/burning on urination. She asks about adjusting insulin regimen, stating that she wants to make sure her glucose is under control to promote healing and recovery. She usually uses an insulin pump at home. (Carolina Mittal MD) Objective Vitals Vital Signs Date Time Temp Pulse Resp B/P Pulse Ox O2 Delivery O2 Flow Rate FiO2 06/22/16 08:12 96.8 102 18 125/58 100 06/22/16 06:00 18 06/22/16 04:25 96.9 117 17 117/57 97 06/22/16 01:07 18 06/22/16 00:58 20 06/22/16 00:38 97.2 99 17 118/59 96 06/21/16 23:00 96 Nasal Cannula 2.00 06/21/16 21:23 18 06/21/16 20:39 97.0 92 16 92/54 95 06/21/16 14:15 95.9 112 16 116/56 98 06/21/16 14:11 15 06/21/16 14:00 16 06/21/16 13:45 97.9 112 16 116/51 97 Nasal Cannula 2 06/21/16 13:30 109 16 108/50 98 Nasal Cannula 2 06/21/16 13:15 106 16 118/52 94 Nasal Cannula 2 06/21/16 13:00 109 16 119/55 94 Nasal Cannula 2 06/21/16 12:45 116 15 141/62 96 Nasal Cannula 3 06/21/16 12:26 97.8 115 15 120/64 96 Nasal Cannula 3 I/O 1/3/17 106/21/16 06/22/16 06/22/16 06/22/16 07:00 15:00 23:00 07:00 15:00 23:00 Intake Total 2000 ml 2160 ml 1200 ml Output Total 1600 ml 2375 ml 2475 ml Balance 400 ml -215 ml -1275 ml Intake Oral 2160 ml 1200 ml IV Total 400 ml Other 1600 ml Output Urine Total 1500 ml 2375 ml 2475 ml Estimated Blood Loss 100 ml # Bowel Movements 0 0 (Carolina Mittal MD) Result Diagram: 06/22/16 0632 06/22/16 0632 Imaging Last Impressions Lumbar Spine X-Ray 06/21/16 0000 Signed Impressions: Service Date/Time: Tuesday, June 21, 2016 08:24 - CONCLUSION: Good position and alignment on this postoperative exam. Kingsley De La Rosa MD Objective Remarks GENERAL: This is a well-nourished, well-developed patient, in no apparent distress. SKIN: No rashes, ecchymoses or lesions. Cool and dry. HEAD: Atraumatic. Normocephalic. EYES: Pupils equal round and reactive. Extraocular motions intact. No scleral icterus. No injection or drainage. ENT: Nose without bleeding or drainage NECK: Trachea midline. CARDIOVASCULAR: Regular rate and rhythm, 1/6 systolic ejection murmur over the right sternal border, no gallops, or rubs. RESPIRATORY: Clear to auscultation. Breath sounds equal bilaterally. No wheezes , rales, or rhonchi. GASTROINTESTINAL: Positive bowel sounds. Abdomen soft, non-tender, nondistended. MUSCULOSKELETAL: Extremities without clubbing, cyanosis, or edema. SCDs in place bilaterally NEUROLOGICAL: Awake and alert. Cranial nerves II through XII grossly intact. Motor and sensory grossly within normal limits. Normal speech. (Carolina Mittal MD) A/P Assessment and Plan 60-year-old female, who is post operative day #1 after having a L3-L4 disc fusion, and L2-L3 laminectomy, doing well. Her PCP is Dr. Martins, and we are consulted for assistance in medical management of chronic diseases which include Behcet's vasculitis, Rheumatoid arthritis, supraventricular tachycardia , hypothyroidism, vitamin D deficiency, chronic pain syndrome, depression, insulin-dependent diabetes. Discharge Planning Pending medical course, and recommendations from neurosurgery, anticipate discharge to inpatient Rehab Discussed with Dr. Martins (Carolina Mittal MD) Attending Attestation Patient seen and examined. Discussed with Dr. Mittal. Agree with assessment and plan as documented. (Rafiq Martins Jr., MD) Problem List: (1) Spondylolisthesis of lumbar region Status: Acute Plan: Status post L2-L5 decompressive laminotomy with medial facetectomy and microdiscectomy with L4/L5 TLIF with pedicle screw fixation with Dr. Stevenson Plan: -Physical therapy daily -Morphine DIE SET UP WORKER pump -Maria Fernanda-Colace 2 tablets twice a day -MiraLAX daily when necessary -Anticipate discharge to inpatient rehabilitation, case management consulted (2) Diabetes mellitus Status: Chronic Plan: Uses an insulin pump at home. Reports taking 29 units every 24 hours of NovoLog. Last hemoglobin A1c was 7.0%. Plan as follows: -1800 Diabetic diet. -Basal insulin Levemir 10 qHS -Nursing to check glucose before each meal -5 units Novolog with each meal and in addition, for every 50 points above glucose level of 120 will add another unit of NovoLog to basal insulin -Nursing instruction written as below. I discussed this with nurse this morning. Give 5 units NovoLog with each meal, but also for every 50 points above a a glucose level of 120, give an additional unit of insulin. Regimen as follows: If glucose is 120-170 give 5 units If glucose is 170-220 give 6 units If glucose is 220-270 give 7 units If glucose is 270-320 give 8 units If glucose is 320-370 give 9 units If glucose is 370-420 give 10 units If glucose is 420-470 give 11 units (3) Rheumatoid arthritis Status: Chronic Plan: Continue with prednisone 15.5 mg q AC (05:45 am) and 1.5 mg at 11:45 am daily. Stress dose steroid of hydrocortisone 100 mg q 8 hours. If having low BP, altered mental status, bradycardia, would consider giving stress dose of solumedrol. (4) Hypothyroidism, unspecified Status: Chronic Plan: Continue with levothyroxine. (5) Depression Status: Chronic Plan: Continue home Cymbalta 80 mg daily. Mood stable on exam. (6) Lichen planus Status: Chronic Plan: Continue with ketoconazole cream. (7) Paroxysmal atrial tachycardia Status: Chronic Plan: Sinus rhythm at a rate of 90 bpm. Regular. Continue to monitor. Continue digoxin 0.25 mg daily. (8) Chronic pain syndrome Status: Chronic Plan: Continue with the morphine DIE SET UP WORKER. Pain control being managed primarily by surgical team. (9) Osteoporosis Status: Chronic Plan: Continue with home vitamin D3 therapy. (Carolina Mittal MD) Problem Qualifiers (1) Diabetes mellitus: Qualified Code: E11.8 - Type 2 diabetes mellitus with complication, with long- term current use of insulin (2) Rheumatoid arthritis: Qualified Code: M06.9 - Rheumatoid arthritis, involving unspecified site, unspecified rheumatoid factor presence Carolina Mittal MD Jun 22, 2016 09:54 Prevatte,Rafiq Ha Jr., MD Jun 22, 2016 14:03
[2016-06-22] MEDS: INSULIN ASPART 1,000 UNITS/10 ML VIAL SQ SCH ×2 (12:39→17:13)
[2016-06-22] MEDS: SODIUM CHLORIDE 0.9% FLUSH 5 ML FLUSH IVF SCH ×2 (12:45→21:00)
[2016-06-22 12:50] VITALS: BP 120/64; PULSE 101; RESP 18; TEMP 97.3; O2SAT 99
[2016-06-22] MEDS ORDERED: POLYETHYLENE GLYCOL 17 GM PKG PO PRN (14:00)
[2016-06-22 16:30] VITALS: BP 111/59; PULSE 97; RESP 16; TEMP 97.8; O2SAT 97
[2016-06-22 20:21] VITALS: BP 119/58; PULSE 102; RESP 16; TEMP 98.6; O2SAT 100
[2016-06-22] MEDS: INSULIN DETEMIR 100 UNITS/ML VIAL SQ SCH (21:10)
[2016-06-23] VITALS (7 sets, daily range): BP systolic 95–131; BP diastolic 52–61; PULSE 81–113; RESP 15–17; TEMP 96.3–99.2; O2SAT 95–99
[2016-06-23] MEDS: MORPHINE SULFATE 30 MG/30 ML PCA IV SCH (04:06)
[2016-06-23] MEDS: azaTHIOprine 50 MG TAB PO SCH ×3 (06:00→17:12)
[2016-06-23] MEDS: PCA - TOTAL MG MORPHINE DELIVERED PER SHIFT SCH (06:00)
[2016-06-23] MEDS: LEVOTHYROXINE SODIUM 112 MCG TAB PO SCH (06:09)
[2016-06-23] MEDS: PANTOPRAZOLE SOD 40 MG DELAYED RELEASE TAB PO SCH (06:09)
[2016-06-23] MEDS: predniSONE 5 MG TAB PO SCH (06:22)
[2016-06-23] MEDS: predniSONE 1 MG TAB PO SCH ×2 (06:23→12:03)
[2016-06-23 07:21] LABS: AUTOMATED NEUTROPHIL # 5.3 TH/MM3 (1.8-7.7); BASOPHIL % 0.4 % (0.0-2.0); EOSINOPHIL % 0.2 % (0.0-4.0); HEMATOCRIT 32.1 % (35.0-46.0); HEMO FLAGS DIFF FINAL; LYMPH % 12.5 % (9.0-44.0); LYMPHOCYTE # 0.9 TH/MM3 (1.0-4.8); MEAN CELL VOLUME 122.8 FL (80.0-100.0); MEAN CORPUSCULAR HEMOGLOBIN 42.3 PG (27.0-34.0); MEAN CORPUSCULAR HGB CONC 34.4 % (32.0-36.0); MONO % 12.1 % (0.0-8.0); NEUT % 74.8 % (16.0-70.0); PLATELET COUNT 328 TH/MM3 (150-450); RED BLOOD COUNT 2.61 MIL/MM3 (4.00-5.30); RED CELL DISTRIBUTION WIDTH 15.2 % (11.6-17.2); WHITE BLOOD COUNT 7.1 TH/MM3 (4.0-11.0)
[2016-06-23 07:42] LABS: BICARBONATE 30.5 MEQ/L (21.0-32.0); POTASSIUM 4.6 MEQ/L (3.5-5.1)
[2016-06-23] MEDS ORDERED: MORPHINE SULFATE 4 MG/ML INJ IV PUSH PRN (08:45)
[2016-06-23] MEDS: CHOLECALCIFEROL (VIT D3) 1000 UNIT TAB PO SCH (08:54)
[2016-06-23] MEDS: DULoxetine HCl DR 20 MG CAP PO SCH (08:54)
[2016-06-23] MEDS: DIGOXIN 0.25 MG TAB PO SCH (08:54)
[2016-06-23] MEDS: DOCUSATE SODIUM 50 MG/SENNA 8.6 MG TAB PO SCH ×2 (08:54→21:51)
[2016-06-23] MEDS: CETIRIZINE HCL 10 MG TAB PO SCH (08:55)
[2016-06-23] MEDS: GABAPENTIN 300 MG CAP PO SCH ×2 (08:55→21:50)
[2016-06-23] MEDS: ESTRADIOL 1 MG TAB PO SCH (08:55)
[2016-06-23] MEDS: INSULIN ASPART 1,000 UNITS/10 ML VIAL SQ SCH ×3 (08:57→17:11)
[2016-06-23] MEDS: SODIUM CHLORIDE 0.9% FLUSH 5 ML FLUSH IVF SCH ×2 (08:57→21:52)
[2016-06-23] MEDS: TRIAMCINOLONE ACET 0.1% IN ORABASE PASTE 5 GM TUBE OROPHARYNG SCH ×2 (08:57→21:00)
[2016-06-23] MEDS: KETOCONAZOLE 2% CREAM 15 GM TOPICAL SCH ×2 (08:58→21:54)
[2016-06-23] MEDS ORDERED: INSULIN ASPART 1,000 UNITS/10 ML VIAL SQ ONE (09:00)
--- NOTE | 2016-06-23 09:16 | RADRPT ---
EXAM DATE/TIME: 06/23/2016 08:20 [facility] COMPARISON: CHEST PA & LAT, September 02, 2012, 21:53. INDICATIONS : Cough, congestion, fever. MEDICAL HISTORY : Diabetes mellitus type II. Gastroesophageal reflux disease. SURGICAL HISTORY : None. ENCOUNTER: Initial ACUITY: 1 day PAIN SCORE: 3/10 LOCATION: Bilateral upper chest FINDINGS: A single view of the chest demonstrates the lungs to be symmetrically aerated without evidence of mas s, infiltrate or effusion. The cardiomediastinal contours are unremarkable. Osseous structures are intact. CONCLUSION: No acute disease. Arsenio Cam MD on June 23, 2016 at 9:13 Board Certified Radiologist. This report was verified electronically.
[2016-06-23 09:28] LABS: BLOOD, URINE SMALL (NEG); COMMENT (UR) CULT NOT INDICATED; CULTURE IF INDICATED CULT NOT INDICATED; GLUCOSE,URINE NEG (NEG); KETONE, URINE NEG (NEG); MUCUS URINE FEW /lpf (OCC); NITRITE,URINE NEG (NEG); SQUAMOUS EPITHELIAL CELL URINE <1 /hpf (0-5); URINE COLOR LIGHT-YELLOW (YELLW/STRAW)
--- NOTE | 2016-06-23 10:28 | HHI.FPPN ---
Subjective Remarks Patient seen and examined this morning. Patient states that she ordered breakfast "hours ago" and it is still not here. She called down to dietary and they are going to be bringing it up soon. She is asking for a cup of coffee and says she is having a headache from not having her morning coffee or breakfast. This morning patients blood glucose was 176. She calculated her carbohydrate need and based on her calculations she needed 11 units of insulin Novolog with her meal. The nurse was only going to give 6 units based on the scale determined by patient and Dr. Martins's agreement yesterday, but patient wanted additional insulin based what she says is her "carbohydrate need". Discussed that there was concern for potential hypoglycemia with too much Novolog. Patient states that she understands and does not think she is going to become hypoglycemic. She was given the additional insulin this morning for total of 11 units Novolog. Otherwise feels well this morning. Denies fevers/chills, nausea, vomiting, chest pain, shortness of breath. She has a good appetite and is working with PT daily. Discussed with patient that her heart rate was a bit high, and she says this is due to the pain. She states her the pain medication is controlling her pain. ( Carolina Mittal MD) Objective Vitals Vital Signs Date Time Temp Pulse Resp B/P Pulse Ox O2 Delivery O2 Flow Rate FiO2 06/23/16 07:55 98.0 113 17 117/56 95 06/23/16 06:00 18 06/23/16 04:18 99.2 109 16 112/59 98 06/23/16 04:06 18 06/23/16 00:37 98.8 101 15 131/52 98 06/22/16 22:00 18 06/22/16 20:21 98.6 102 16 119/58 100 06/22/16 18:22 Nasal Cannula 2.00 06/22/16 17:04 15 06/22/16 16:30 97.8 97 16 111/59 97 06/22/16 14:00 15 06/22/16 12:50 97.3 101 18 120/64 99 I/O 06/22/16 06/22/16 06/22/16 06/23/16 06/23/16 06/23/16 07:00 15:00 23:00 07:00 15:00 23:00 Intake Total 1200 ml 1564 ml 1680 ml 897 ml Output Total 2475 ml 1800 ml 2625 ml 1975 ml Balance -1275 ml -236 ml -945 ml -1078 ml Intake Oral 1200 ml 980 ml 1680 ml 480 ml IV Total 584 ml 417 ml Output Urine Total 2475 ml 1800 ml 2625 ml 1975 ml # Bowel Movements 0 0 1 (Carolina Mittal MD) Result Diagram: 06/23/16 0655 06/23/16 0655 Imaging Last Impressions Chest X-Ray 06/23/16 0000 Signed Impressions: Service Date/Time: June 08:20 - CONCLUSION: No acute disease. Arsenio Cam MD Lumbar Spine X-Ray 06/21/16 0000 Signed Impressions: Service Date/Time: Tuesday, June 21, 2016 08:24 - CONCLUSION: Good position and alignment on this postoperative exam. Kingsley De La Rosa MD Objective Remarks GENERAL: This is a well-nourished, well-developed patient, in no apparent distress. Sitting up in bed. SKIN: No rashes, ecchymoses or lesions. Cool and dry. HEAD: Atraumatic. Normocephalic. NECK: Trachea midline. CARDIOVASCULAR: Regular rate and rhythm, 1/6 systolic ejection murmur over the right sternal border, no gallops, or rubs. RESPIRATORY: Clear to auscultation. Breath sounds equal bilaterally. No wheezes , rales, or rhonchi. GASTROINTESTINAL: Positive bowel sounds. Abdomen soft, non-tender, nondistended. MUSCULOSKELETAL: Extremities without clubbing, cyanosis, or edema. SCDs in place bilaterally NEUROLOGICAL: Awake and alert. Cranial nerves II through XII grossly intact. Motor and sensory grossly within normal limits. Normal speech. (Carolina Mittal MD) A/P Assessment and Plan 60-year-old female, who is post operative day #2 after having a L3-L4 disc fusion, and L2-L3 laminectomy, doing well. Her PCP is Dr. Martins, and we are consulted for assistance in medical management of chronic diseases which include Behcet's vasculitis, Rheumatoid arthritis, supraventricular tachycardia , hypothyroidism, vitamin D deficiency, chronic pain syndrome, depression, insulin-dependent diabetes. Discharge Planning Pending medical course, and recommendations from neurosurgery, anticipate discharge to inpatient Rehab Discussed with Dr. Singleton (Dr. Martins is out of town and Dr. Farooq will be covering during remainder of hospitalization) (Carolina Mittal MD) Attending Attestation Patient seen and examined. Case reviewed and discussed with the resident team. Agree with plan of care as discussed with me and documented in the resident note. agree with giving pt autonomy as much as possible to dose her own insulin as she has been an expert at this with her pump for at least 9 years (Prachi Farooq MD) Problem List: (1) Spondylolisthesis of lumbar region Status: Acute Plan: Status post L2-L5 decompressive laminotomy with medial facetectomy and microdiscectomy with L4/L5 TLIF with pedicle screw fixation with Dr. Stevenson Plan: -Physical therapy daily -Morphine SENIOR MOBILE APPLICATION DEVELOPER pump, transitioning off of this today per pts report. -Maria Fernanda-Colace 2 tablets twice a day -MiraLAX daily when necessary -Remove gage today -Anticipate discharge to inpatient rehabilitation, case management consulted (2) Diabetes mellitus Status: Chronic Plan: Uses an insulin pump at home. Patient stating she will not be using while inpatient. Reports taking 29 units every 24 hours of NovoLog. Last hemoglobin A1c was 7.0%. Plan as follows: -1800 Diabetic diet. -Basal insulin Levemir 10 qHS -Nursing to check glucose before each meal -New order placed 06/23/16: Give anywhere from 5 to 15 units Novolog with each meal according to what patient requests based on patient's calculation of her insulin need. Nursing instruction placed that it is okay to give the amount of Novolog that patient requests from 5 to 15 units with each meal. Patient agrees with this plan. I discussed this with nurse this morning. -Monitor closely for signs and/or symptoms of hypoglycemia: will need to adjust above if hypoglycemia occurs. (3) Rheumatoid arthritis Status: Chronic Plan: Continue with prednisone 15.5 mg q AC (05:45 am) and 1.5 mg at 11:45 am daily. Stress dose steroid of hydrocortisone 100 mg q 8 hours. If having low BP, altered mental status, bradycardia, would consider giving stress dose of solumedrol. (4) Hypothyroidism, unspecified Status: Chronic Plan: Continue with levothyroxine. (5) Depression Status: Chronic Plan: Continue home Cymbalta 80 mg daily. Mood stable on exam. (6) Lichen planus Status: Chronic Plan: Continue with ketoconazole cream. (7) Paroxysmal atrial tachycardia Status: Chronic Plan: Sinus rhythm, rate of 90-113 bpm. Regular. Continue to monitor. Continue digoxin 0.25 mg daily. (8) Chronic pain syndrome Status: Chronic Plan: Continue with the morphine as above. Pain control being managed primarily by surgical team. (9) Osteoporosis Status: Chronic Plan: Continue with home vitamin D3 therapy. (10) Nutrition, metabolism, and development symptoms Status: Acute Plan: Fluids: None, good PO intake Electrolytes: normal, continue to monitor Nutrition: Diabetic 1800 ADA diet DVT PPX: SCDs GI PPx: Protonix 40mg daily (Carolina Mittal MD) Problem Qualifiers (1) Diabetes mellitus: Qualified Code: E11.8 - Type 2 diabetes mellitus with complication, with long- term current use of insulin (2) Rheumatoid arthritis: Qualified Code: M06.9 - Rheumatoid arthritis, involving unspecified site, unspecified rheumatoid factor presence Carolina Mittal MD Jun 23, 2016 10:28 Prachi Farooq MD Jun 27, 2016 09:13
[2016-06-23] MEDS: ACETAMINOPHEN/HYDROcodone 325 MG/10 MG TAB PO PRN ×3 (11:11→21:51)
--- NOTE | 2016-06-23 17:59 | HHI.NSPN ---
History Chief Complaint: Incisional pain controlled with SHOP TECHNICIAN. Interval History Relates that she slept all night and has not slept like this in months. Incisional pain controlled with some pain radiating into the right but the previous numbness and paresthesias in the lower extremities have resolved. Ambulated with physical therapy. Positive bowel movement today. Exam Results Vital Signs Date Time Temp Pulse Resp B/P Pulse Ox O2 Delivery O2 Flow Rate FiO2 06/23/16 15:58 96.3 81 16 119/55 99 06/23/16 13:41 21 06/22/16 18:22 Nasal Cannula 2.00 Intake and Output 06/22/16 06/22/16 06/23/16 08:00 16:00 00:00 Intake Total 1200 ml 1564 ml 1680 ml Output Total 2475 ml 1800 ml 2625 ml Balance -1275 ml -236 ml -945 ml Physical Examination Resp: CTA bilaterally Heart: NSR no murmurs Abd: Soft positive bs Skin: Pt log rolled. Incision clean and dry. No erythema or drainage. Muscle: Moves all 4 extremities with good strength. Neuro: Pt awake and alert. Follows commands well. Speech clear and appropriate. Medical Decision Making Impression and Plan Postop day #2 status post L2-3 microdiscectomy and L4-5 TLIF. Overall she is progressing well. Discontinue SHOP TECHNICIAN and Díaz. Plan residential home placement tomorrow. Gregorio Stevenson MD Jun 23, 2016 17:59
[2016-06-23] MEDS: ZOLPIDEM TARTRATE 10 MG TAB PO PRN (21:50)
[2016-06-23] MEDS: INSULIN DETEMIR 100 UNITS/ML VIAL SQ SCH (22:12)
[2016-06-24] VITALS: BP 119/61; PULSE 97; RESP 16; TEMP 97.7; O2SAT 95
[2016-06-24] MEDS: ACETAMINOPHEN/HYDROcodone 325 MG/10 MG TAB PO PRN ×3 (04:11→12:37)
[2016-06-24 05:16] VITALS: BP 133/66; PULSE 96; RESP 18; TEMP 97.6; O2SAT 95
[2016-06-24] MEDS: azaTHIOprine 50 MG TAB PO SCH (06:00)
[2016-06-24] MEDS: predniSONE 1 MG TAB PO SCH ×2 (06:10→12:43)
[2016-06-24] MEDS: predniSONE 5 MG TAB PO SCH (06:10)
[2016-06-24] MEDS: LEVOTHYROXINE SODIUM 112 MCG TAB PO SCH (06:10)
[2016-06-24 06:18] LABS: AUTOMATED NEUTROPHIL # 4.9 TH/MM3 (1.8-7.7); BASOPHIL % 0.3 % (0.0-2.0); EOSINOPHIL % 0.2 % (0.0-4.0); HEMATOCRIT 30.8 % (35.0-46.0); HEMO FLAGS DIFF FINAL; LYMPH % 12.7 % (9.0-44.0); LYMPHOCYTE # 0.8 TH/MM3 (1.0-4.8); MEAN CELL VOLUME 122.4 FL (80.0-100.0); MEAN CORPUSCULAR HEMOGLOBIN 42.4 PG (27.0-34.0); MEAN CORPUSCULAR HGB CONC 34.6 % (32.0-36.0); MONO % 12.7 % (0.0-8.0); NEUT % 74.1 % (16.0-70.0); PLATELET COUNT 302 TH/MM3 (150-450); RED BLOOD COUNT 2.52 MIL/MM3 (4.00-5.30); RED CELL DISTRIBUTION WIDTH 15.1 % (11.6-17.2); WHITE BLOOD COUNT 6.6 TH/MM3 (4.0-11.0)
[2016-06-24 06:37] LABS: BICARBONATE 29.9 MEQ/L (21.0-32.0); POTASSIUM 3.9 MEQ/L (3.5-5.1)
[2016-06-24] MEDS: INSULIN ASPART 1,000 UNITS/10 ML VIAL SQ SCH ×2 (07:46→12:38)
[2016-06-24 08:01] VITALS: BP 120/62; PULSE 107; RESP 18; TEMP 98.5; O2SAT 98
[2016-06-24] MEDS: ESTRADIOL 1 MG TAB PO SCH (08:17)
[2016-06-24] MEDS: SODIUM CHLORIDE 0.9% FLUSH 5 ML FLUSH IVF SCH (08:17)
[2016-06-24] MEDS: DULoxetine HCl DR 20 MG CAP PO SCH (08:17)
[2016-06-24] MEDS: CHOLECALCIFEROL (VIT D3) 1000 UNIT TAB PO SCH (08:17)
[2016-06-24] MEDS: PANTOPRAZOLE SOD 40 MG DELAYED RELEASE TAB PO SCH (08:17)
[2016-06-24] MEDS: GABAPENTIN 300 MG CAP PO SCH (08:18)
[2016-06-24] MEDS: DIGOXIN 0.25 MG TAB PO SCH (08:18)
[2016-06-24] MEDS: CETIRIZINE HCL 10 MG TAB PO SCH (08:18)
[2016-06-24] MEDS: DOCUSATE SODIUM 50 MG/SENNA 8.6 MG TAB PO SCH (08:19)
[2016-06-24] MEDS: TRIAMCINOLONE ACET 0.1% IN ORABASE PASTE 5 GM TUBE OROPHARYNG SCH (08:19)
[2016-06-24] MEDS: KETOCONAZOLE 2% CREAM 15 GM TOPICAL SCH (08:20)
[2016-06-24] MEDS ORDERED: HYDR-3583 PO (08:54)
[2016-06-24] MEDS ORDERED: CYCL1TAB29 PO (08:56)
[2016-06-24] MEDS ORDERED: SENN1TAB PO (08:56)
--- NOTE | 2016-06-24 09:23 | HHI.FPPN ---
Subjective Remarks Patient seen and examined this morning. She feels well. Pain is controlled with PO pain medication. Denies fevers/chills, nausea/vomiting, chest pain or shortness of breath. She is using the Inspiratory spirometer and is ambulatory with Physical Therapy. Daughter in room. Both the patient and daughter state they want to go to [facility] in [place], and that she feels ready to go today. She was also considering [facility] but would have a $300 a day co-pay which she cannot afford. She asks if she can see PT and OT before she leaves and if she can have the bandage changed before she leaves. Objective Vitals Vital Signs Date Time Temp Pulse Resp B/P Pulse Ox O2 Delivery O2 Flow Rate FiO2 06/24/16 08:01 98.5 107 18 120/62 98 06/24/16 05:16 97.6 96 18 133/66 95 06/24/16 00:00 97.7 97 16 119/61 95 06/23/16 21:42 97.7 97 16 119/61 96 06/23/16 15:58 96.3 81 16 119/55 99 06/23/16 13:41 95 21 06/23/16 11:59 96.7 109 16 95/54 95 I/O 06/23/16 06/23/16 06/23/16 06/24/16 06/24/16 06/24/16 07:00 15:00 23:00 07:00 15:00 23:00 Intake Total 897 ml 960 ml 240 ml 700 ml Output Total 1975 ml 1000 ml Balance -1078 ml -40 ml 240 ml 700 ml Intake Oral 480 ml 960 ml 240 ml 700 ml IV Total 417 ml Output Urine Total 1975 ml 1000 ml # Voids 2 1 4 # Bowel Movements 1 2 0 0 Result Diagram: 06/24/16 0553 06/24/16 0553 Imaging Last Impressions Chest X-Ray 06/23/16 0000 Signed Impressions: Service Date/Time: June 08:20 - CONCLUSION: No acute disease. Arsenio Cam MD Lumbar Spine X-Ray 06/21/16 0000 Signed Impressions: Service Date/Time: Tuesday, June 21, 2016 08:24 - CONCLUSION: Good position and alignment on this postoperative exam. Kingsley De La Rosa MD Objective Remarks GENERAL: This is a well-nourished, well-developed patient, in no apparent distress. Sitting up in bed. SKIN: No rashes, ecchymoses or lesions. Cool and dry. HEAD: Atraumatic. Normocephalic. NECK: Trachea midline. CARDIOVASCULAR: Regular rate and rhythm, 1/6 systolic ejection murmur over the right sternal border, no gallops, or rubs. RESPIRATORY: Clear to auscultation. Breath sounds equal bilaterally. No wheezes , rales, or rhonchi. GASTROINTESTINAL: Positive bowel sounds. Abdomen soft, non-tender, nondistended. MUSCULOSKELETAL: Extremities without clubbing, cyanosis, or edema. SCDs in place bilaterally NEUROLOGICAL: Awake and alert. Cranial nerves II through XII grossly intact. Motor and sensory grossly within normal limits. Normal speech. A/P Assessment and Plan 60-year-old female, who is post operative day #3 after having a L3-L4 disc fusion, and L2-L3 laminectomy, doing well. Her PCP is Dr. Martins, and we are consulted for assistance in medical management of chronic diseases which include Behcet's vasculitis, Rheumatoid arthritis, supraventricular tachycardia , hypothyroidism, vitamin D deficiency, chronic pain syndrome, depression, insulin-dependent diabetes. Discharge Planning Discharge to [facility] in [place] today. I called Dr. Stevenson's office 06/24/16 and spoke with front facer who states that she will notify Dr. Stevenson, and that patient already has follow up appt scheduled. Discussed with Dr. Singleton (Dr. Martins is out of town and Dr. Farooq will be covering during remainder of hospitalization) Problem List: (1) Spondylolisthesis of lumbar region Status: Acute Plan: Status post L2-L5 decompressive laminotomy with medial facetectomy and microdiscectomy with L4/L5 TLIF with pedicle screw fixation with Dr. Stevenson Plan: -Physical therapy daily -[place] 10/325 PO 1 tab q4hr PRN pain. Rx for #60 written on discharge. -Maria Fernanda-Colace 2 tablets twice a day written on discharge -MiraLAX daily when necessary -Discharge to inpatient rehabilitation today. Per Dr. Stevenson note from yesterday plan is for discharge today to SNF. Case management consulted (2) Diabetes mellitus Status: Chronic Plan: Uses an insulin pump at home. Patient stating she will not be using while inpatient. Reports taking 29 units every 24 hours of NovoLog. Last hemoglobin A1c was 7.0%. Plan as follows: -1800 Diabetic diet. -Basal insulin Levemir 10 qHS -Nursing to check glucose before each meal -New order placed 06/23/16: Give anywhere from 5 to 15 units Novolog with each meal according to what patient requests based on patient's calculation of her insulin need. Nursing instruction placed that it is okay to give the amount of Novolog that patient requests from 5 to 15 units with each meal. Patient agrees with this plan. -Monitor closely for signs and/or symptoms of hypoglycemia: will need to adjust above if hypoglycemia occurs. (3) Rheumatoid arthritis Status: Chronic Plan: Continue with prednisone 15.5 mg q AC (05:45 am) and 1.5 mg at 11:45 am daily. Stress dose steroid of hydrocortisone 100 mg q 8 hours. If having low BP, altered mental status, bradycardia, would consider giving stress dose of solumedrol. (4) Hypothyroidism, unspecified Status: Chronic Plan: Continue with levothyroxine. (5) Depression Status: Chronic Plan: Continue home Cymbalta 80 mg daily. Mood stable on exam. (6) Lichen planus Status: Chronic Plan: Continue with ketoconazole cream. (7) Paroxysmal atrial tachycardia Status: Chronic Plan: Sinus rhythm, rate of 90-113 bpm. Regular. Continue to monitor. Continue digoxin 0.25 mg daily. (8) Chronic pain syndrome Status: Chronic Plan: Continue with the [place] as above. (9) Osteoporosis Status: Chronic Plan: Continue with home vitamin D3 therapy. (10) Nutrition, metabolism, and development symptoms Status: Acute Plan: Fluids: None, good PO intake Electrolytes: normal, continue to monitor Nutrition: Diabetic 1800 ADA diet DVT PPX: SCDs GI PPx: Protonix 40mg daily Problem Qualifiers (1) Diabetes mellitus: Qualified Code: E11.8 - Type 2 diabetes mellitus with complication, with long- term current use of insulin (2) Rheumatoid arthritis: Qualified Code: M06.9 - Rheumatoid arthritis, involving unspecified site, unspecified rheumatoid factor presence Carolina Mittal MD Jun 24, 2016 09:23
--- NOTE | 2016-06-24 09:26 | HHI.DCPOC ---
Discharge Care Plan Diagnosis: (1) RA (rheumatoid arthritis) (2) Lumbar degenerative disc disease (3) Spondylolisthesis of lumbar region (4) Hypothyroidism, unspecified (5) Rheumatoid arthritis (6) Diabetes mellitus (7) Behcets syndrome (8) Chronic pain syndrome (9) Allergic rhinitis (10) Osteoporosis (11) GENERALIZED ANXIETY DIS (12) Paroxysmal atrial tachycardia (13) Depression (14) Lichen planus (15) Spinal stenosis of lumbar region (16) Facet arthropathy, lumbar Goals to Promote Your Health * To prevent worsening of your condition and complications * To maintain your health at the optimal level Directions to Meet Your Goals Take your medications as prescribed Follow your dietary instruction Follow activity as directed Keep your appointments as scheduled Take your immunizations and boosters as scheduled If your symptoms worsen call your PCP, if no PCP go to Urgent Care Center or Emergency Room Smoking is Dangerous to Your Health. Avoid second hand smoke Call the 24-hour hour crisis hotline for domestic abuse at Carolina Mittal MD Jun 24, 2016 09:26
--- NOTE | 2016-06-24 10:11 | HHI.NSPN ---
History Chief Complaint: Incisional pain controlled with LOCKSTITCH SHOULDER JOINER. Interval History 06/22/16: Pt underwent a L2-L5 decompressive laminotomy with medial facetectomy and microdiscectomy with L4/L5 TLIF with pedicle screw fixation. She complains of incisional pain and some pain radiating into the right anterior thigh but not past the knee. She states she got up into the chair with her brace on yesterday. She states she feels stronger in her legs. 06/24/16: Pt awake and alert. Complains of right anterior thigh nerve pain but not as bad as before. No radiation past the right knee. No fever or chills. Review of Systems General: Negative for: fever, chills, insomnia Respiratory: Negative for: shortness of breath, cough, sputum Cardiovascular: Negative for: chest pain Gastrointestinal: Negative for: nausea, vomitting, diarrhea, constipation Exam Results Vital Signs Date Time Temp Pulse Resp B/P Pulse Ox O2 Delivery O2 Flow Rate FiO2 06/24/16 08:01 98.5 107 18 120/62 98 06/23/16 13:41 21 06/22/16 18:22 Nasal Cannula 2.00 Intake and Output 06/23/16 06/23/16 06/24/16 08:00 16:00 00:00 Intake Total 897 ml 960 ml 240 ml Output Total 1975 ml 1000 ml Balance -1078 ml -40 ml 240 ml Physical Examination Resp: CTA bilaterally Heart: NSR no murmurs Abd: Soft positive bs Skin: Pt log rolled. Incision clean and dry. No erythema or drainage. New bandage placed. Muscle: Moves all 4 extremities with good strength. Neuro: Pt awake and alert. Follows commands well. Speech clear and appropriate. Lab, Micro, Other Results Laboratory Tests Test 06/24/16 05:53 White Blood Count 6.6 TH/MM3 Red Blood Count 2.52 MIL/MM3 Hemoglobin 10.7 GM/DL Hematocrit 30.8 % Mean Corpuscular Volume 122.4 FL Mean Corpuscular Hemoglobin 42.4 PG Mean Corpuscular Hemoglobin 34.6 % Concent Red Cell Distribution Width 15.1 % Platelet Count 302 TH/MM3 Mean Platelet Volume 7.1 FL Neutrophils (%) (Auto) 74.1 % Lymphocytes (%) (Auto) 12.7 % Monocytes (%) (Auto) 12.7 % Eosinophils (%) (Auto) 0.2 % Basophils (%) (Auto) 0.3 % Neutrophils # (Auto) 4.9 TH/MM3 Lymphocytes # (Auto) 0.8 TH/MM3 Monocytes # (Auto) 0.8 TH/MM3 Eosinophils # (Auto) 0.0 TH/MM3 Basophils # (Auto) 0.0 TH/MM3 CBC Comment DIFF FINAL Differential Comment Sodium Level 138 MEQ/L Potassium Level 3.9 MEQ/L Chloride Level 104 MEQ/L Carbon Dioxide Level 29.9 MEQ/L Anion Gap 4 MEQ/L Blood Urea Nitrogen 11 MG/DL Creatinine 0.63 MG/DL Estimat Glomerular Filtration 96 ML/MIN Rate Random Glucose 218 MG/DL Calcium Level 8.5 MG/DL 06/23/16 06/23/16 06/24/16 15:00 23:00 07:00 Intake Total 960 ml 240 ml 700 ml Output Total 1000 ml Balance -40 ml 240 ml 700 ml Intake Oral 960 ml 240 ml 700 ml Output Urine Total 1000 ml # Voids 2 1 4 # Bowel Movements 2 0 0 Medical Decision Making Impression and Plan A: 60 y/o FM s/p L2-L5 decompressive laminotomy with medial facetectomy and microdiscectomy with L4/L5 TLIF with pedicle screw fixation. P: Rehab placement Follow up in 6 weeks as instructed. Waylon Benton Jun 24, 2016 10:11 am
[2016-06-24] MEDS ORDERED: ZOLP10TA3 PO (10:13)
[2016-07-12] MEDS ORDERED: GABA600T PO (16:08)
[2016-07-13] MEDS ORDERED: HYDR-3516 PO (10:55)
[2016-08-03] MEDS ORDERED: HYDR-3516 PO (14:12)
[2016-08-03] MEDS ORDERED: GABA100C4 PO (16:26)
[2016-08-09] MEDS ORDERED: KETO2CRE TOPICAL (15:11)
[2016-08-09] MEDS ORDERED: CICL8KIT2 TOPICAL (15:11)
[2016-08-09] MEDS ORDERED: KETO60IN6 IM (15:16)
[2016-08-09] MEDS ORDERED: GABA300C5 PO (15:16)
[2016-08-09] MEDS ORDERED: ZOLP10TA3 PO (15:18)
--- NOTE | 2016-08-13 19:46 | HHI.DS ---
Discharge Summary Admission Date Jun 21, 2016 at 05:36 Discharge Date: Jun 24, 2016 Admitting Diagnosis (1) Low back pain Diagnosis: Principal ICD Code: M54.5 (2) Facet arthropathy, lumbar Diagnosis: Principal ICD Code: M12.88 (3) Spondylolisthesis of lumbar region Diagnosis: Principal ICD Code: M43.16 (4) Spinal stenosis of lumbar region Diagnosis: Principal ICD Code: M48.06 Procedures L2-L5 decompressive laminectomy with medial facetectomies and microdiscectomy with L4/L5 TLIF with pedicle screw fixation on 06/21/[address] Stevenson. Brief History This is a 60 y/o FM who presented to us for low back pain. 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 They obtained x-rays and an MRI and the pain was controlled with muscle relaxants pain medication, ice and heat. Two months ago the pain became unbearable. She saw her primary care doctor who ordered an MRI and she was referred to PT. She states her primary care physician called her back and told her not to go to PT but to see us for an evaluation. "She states the low back pain radiates into the right groin and anterolateral leg. She states there is a constant ache and burning. She occasionally gets pain in the left posterior lateral leg. She states she currently has weakness in the right leg and it masood and she feels like she could fall. She has kneeled on the floor and was too weak to get up with her right leg. The pain improves with laying down. She states the leg symptoms bother her more than the back because the leg affects her mobility but they are both bad. Imaging MRI of the lumbar spine from April 28, 2016 which reveals severe L4/L5 spinal stenosis from a combination of disc protrusion and facet hypertrophy as well as severe degenerative disc disease with disc height collapse and grade I spondylolisthesis. She also has moderate to severe L2/L3 spinal stenosis from a disc protrusion and facet arthropathy and degenerative disc disease. Hospital Course Pt underwent the above noted procedure by Dr. Stevenson. There was no intraoperative complications. Postoperatively pt was admitted to the med/ surgical floor. Family medicine was consulted for assistance with medical management of her diabetes and other comorbidities. PT was consulted. Her Díaz was discontinued. Pts activity was increased. 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 She was transferred to rehab in stable condition. Pt Condition on Discharge: Stable Discharge Disposition: Discharge to SNF Discharge Instructions DIET: Follow Instructions for: Diabetic Diet ACTIVITIES You can perform: Shower Only-No Bath Activities to Avoid: Lifting/Bending, Prolonged Standing, Strenuous Activity, Driving ADDITIONAL Activity Instructio: LUMBAR BRACE ON WHEN OUT OF BED Follow up Referrals: Neurosurgery - 2 Weeks with Gregorio Stevenson MD PCP Follow-up - 1 Week with Rafiq Martins Jr., MD SNF/[facility]/ with [facility] New Medications: Cyclobenzaprine (Flexeril) 10 Mg Tab 10 MG PO Q8H PRN MUSCLE SPASM #6 Ref 0 TAB Sennosides-Docusate Sodium (Senna Plus 8.6-50 mg) 1 Tab Tab 2 TAB PO BID #60 TAB Continued Medications: Acetaminophen (Tylenol) 325 Mg Cap 325 MG PO Q6H PRN PAIN SCALE 1 TO 10 Ref 0 CAP Azathioprine (Azathioprine) 50 Mg Tab 100 MG PO BID Hazardous agent use appropriate precautions for handling and disposal. Immunosuppression #60 Ref 0 TAB Calcium-Vitamins D & K (Viactiv) 500-500-40 Mg-Unit-Mcg Chew 1 EA CHEW BID Nutritional Supplement Ref 0 TAB Cetirizine (Zyrtec Allergy) 10 Mg Cap 10 MG PO DAILY Allergies Ref 0 CAP Cholecalciferol (Vitamin D-3) 2,000 Unit Tab 1 TAB PO DAILY Cranberry (Vaccinium Macrocarpon) (Cranberry) 250 Mg Cap MG PO Q6HR Digoxin (Digoxin) 0.25 Mg Tab 0.25 MG PO DAILY Regulate Heart Beat #30 Ref 0 TAB Diphenhydramine (Diphenhydramine) 25 Mg Cap 25 MG PO HS PRN INSOMNIA Ref [address] (Cymbalta DR) 20 Mg Capdr 80 MG PO DAILY #30 Ref 0 CAP Estradiol (Estradiol) 1 Mg Tab 1 MG PO DAILY Estrogen Supplements #30 Ref 0 TAB Insulin Aspart Inj (Novolog Inj) 1,000 Unit/10 Ml Vial 0 SQ DIRECTED Sliding Scale as directed. Blood Sugar Management #10 Ref 0 ML Levothyroxine (Levothyroxine) 112 Mcg Tab 112 MCG PO DAILY Thyroid #30 Ref 0 TAB Lidocaine Viscous Liq (Lidocaine Viscous Liq) 2 % Liqd 5 ML SWISH-SWAL DIRECTED PRN PAIN #1 Ref 0 BOTTLE Magnesium (Magnesium) 250 Mg Tab 250 MG PO TID Medroxyprogesterone Acetate (Medroxyprogesterone Acetate) 2.5 Mg Tab 2.5 MG PO DAILY Start day 21 Uterine bleeding #5 Ref 0 TAB Pantoprazole (Pantoprazole) 40 Mg Tab 40 MG PO DAILY Reflux #30 Ref 0 TAB Prednisone (Prednisone) 10 Mg Tab 15.5 MG PO AC BREAKFAST Ref 0 TAB Prednisone (Prednisone) 1 Mg Tab 1.5 MG PO daily@1200pm Ref 0 TAB Promethazine Supp (Promethazine Supp) 25 Mg Supp 25 MG RECTAL Q6HR every 6 to 8 hours as needed PRN NAUSEA OR VOMITING Ref 0 SUPP Tizanidine (Tizanidine) 2 Mg Tab 2 MG PO TID Muscle Spasm Ref 0 TAB Tramadol (Tramadol) 50 Mg Tab 50 MG PO Q6H PRN PAIN #30 Ref 0 TAB Triamcinolone Oral Paste (Oralone Oral Paste) 0.1 % Pste 1 APPLIC OROPHARYNG BID Inflammation #5 Ref 0 GM Waylon Benton Aug 13, 2016 19:46
[2016-08-18] MEDS ORDERED: ACYC400T PO (15:42)
[2016-09-06] MEDS ORDERED: GABA100C4 PO (08:26)
[2016-09-07] MEDS ORDERED: GABA300C5 PO (10:44)
[2016-09-07] MEDS ORDERED: GABA100C4 PO (10:44)
[2016-09-09] MEDS ORDERED: LEVO112T2 PO (17:11)
[2016-10-04] MEDS ORDERED: ZOLP10TA3 PO (14:21)
[2016-10-31] MEDS ORDERED: KETO2CRE TOPICAL (16:18)
== END 2016-06-24 13:00 | DRG 460 ==
LOC: HSDI 06-21 05:36 → EDSTATUS 06-21 08:00 → N06A 06-21 14:02
PROVIDERS: ADMIT Neurological Surgery; ATTEND Neurological Surgery
PROC: 0SB20ZZ Excision of Lumbar Vertebral Disc, Open Approach (ICD-10-PCS; 2016-06-21)
PROC: 0QU007Z Supplement Lumbar Vertebra with Autologous Tissue Substitute, Open Approach (ICD-10-PCS; 2016-06-21)
PROC: 0SG10AJ Fusion of 2 or more Lumbar Vertebral Joints with Interbody Fusion Device, Posterior Approach, Anterior Column, Open Approach (ICD-10-PCS; principal; 2016-06-21 08:11)
DX: M48.06 Spinal stenosis, lumbar region (principal); M35.2 Behcet's disease; I47.1 Supraventricular tachycardia; E03.9 Hypothyroidism, unspecified; E11.9 Type 2 diabetes mellitus without complications; B35.1 Tinea unguium; F12.90 Cannabis use, unspecified, uncomplicated; M51.36 Other intervertebral disc degeneration, lumbar region; M43.16 Spondylolisthesis, lumbar region; K21.9 Gastro-esophageal reflux disease without esophagitis; M19.90 Unspecified osteoarthritis, unspecified site; K59.00 Constipation, unspecified; G89.4 Chronic pain syndrome; L43.9 Lichen planus, unspecified; M06.9 Rheumatoid arthritis, unspecified; M81.0 Age-related osteoporosis without current pathological fracture; S83.511A Sprain of anterior cruciate ligament of right knee, initial encounter; W19.XXXA Unspecified fall, initial encounter; Z79.4 Long term (current) use of insulin; Z79.52 Long term (current) use of systemic steroids; Z96.41 Presence of insulin pump (external) (internal); F41.8 Other specified anxiety disorders; Y92.9 Unspecified place or not applicable
CPT/HCPCS: 71010; 72100; 76000; 80048; 80053; 81001; 82948; 83735; 85007; 85025; 85027; 86850; 86900; 86901; 94150; C1713; J0690; J1170; J1720; J1815; J2250; J2270; J2370; J2405; J3010; J3370; J3480; J7050; J7120; J7500; J7512; L0627

== ENCOUNTER 2018-06-07 15:13 | Inpatient (IN) ==
--- NOTE | 2018-06-07 15:55 | ED ---
HPI General Chief complaint: Recheck/Abnormal Lab/Rx Stated complaint: dr sent/ abnormal labs Time Seen by Provider: 06/07/18 15:36 Source: patient Mode of arrival: ambulatory Limitations: no limitations History of Present Illness HPI narrative: 62-year-old female states that 2 weeks ago she had her hemoglobin checked and it was down to 7.9 after it usually runs about 11. She states she got a B12 shot and she had it rechecked a couple days later and it was still 7.8. They try to recheck it in the office today but they could not get it after a couple sticks so they advised her to come here to the emergency room to be evaluated. She denies any active bleeding or any other concurrent complaints at this time. Related Data Home Medications Medication Instructions Recorded Confirmed insulin pump syringe 05/17/18 06/07/18 prednisone 16 mg PO QAM 05/17/18 06/07/18 trazodone 50 mg PO DAILY PRN 05/17/18 06/07/18 azathioprine 50 mg PO BID 06/07/18 06/07/18 ciclopirox 1 applic TOPICAL DAILY 06/07/18 06/07/18 conj estrogens-bazedoxifene 1 tab PO DAILY 06/07/18 06/07/18 [Duavee] digoxin 0.25 mg PO DAILY 06/07/18 06/07/18 duloxetine 80 mg PO DAILY 06/07/18 06/07/18 gabapentin 300 mg PO DAILY 06/07/18 06/07/18 levothyroxine 50 mcg PO DAILY 06/07/18 06/07/18 lidocaine HCl [Lidocaine Viscous] 15 ml MUCOUS MEMBRANE Q4-6H PRN 06/07/1806/07 pantoprazole 40 mg PO DAILY 06/07/18 06/07/18 prednisone 1 mg PO AC LUNCH 06/07/18 06/07/18 tizanidine 2 mg PO BID 06/07/18 06/07/18 Allergies Allergy/AdvReac Type Severity Reaction Status Date / Time pecan nut Allergy Intermediate joint Verified 06/07/18 15:30 swelling, elevated sed rate walnut Allergy Intermediate joint Verified 06/07/18 15:30 swelling, elevated sed rate ciprofloxacin AdvReac Intermediate Hives Verified 06/07/18 15:30 codeine AdvReac Mild nausea Verified 12/20/18 15:30 TAPE Allergy Intermediate SKIN PEELS Uncoded 06/07/18 15:30 Review of Systems ROS: all other systems reviewed are negative [facility] Medical History Medical History Anxiety (Acute) Behcet's disease (Acute) Depression (Acute) Diabetes (Acute) GERD (gastroesophageal reflux disease) (Acute) Hypothyroid (Acute) POTS (postural orthostatic tachycardia syndrome) (Acute) Surgical History Surgical History H/O right knee surgery (Acute) H/O tubal ligation (Acute) History of back surgery (Acute) Hx of appendectomy (Acute) Hx of cholecystectomy (Acute) Hx of tonsillectomy (Acute) Social History Social History Substance History: Active Abuse Second Hand Smoke Exposure: No Smoking Status: Never smoker How Often Do You Have a Drink Containing Alcohol: 4 or more times a week Recent Travel in [facility] within the Last 8 Weeks: No Recent Out of Country Travel within the Last 8 Weeks: No Substance Abuse Detail Marijuana: Route Used Substance Abuse: Inhalation Substance Abuse Comment: cbd oil Immunization History Tetanus Immunization: <5 Years Exam Narrative Exam Narrative: GENERAL: 62 y/o female in no apparent distress SKIN: Focused skin assessment warm/dry. HEAD: Atraumatic. Normocephalic. EYES: Pupils equal and round. No scleral icterus. No injection or drainage. ENT: No nasal bleeding or discharge. Mucous membranes pink and moist. NECK: Trachea midline. CARDIOVASCULAR: Regular rate and rhythm. RESPIRATORY: No accessory muscle use. Clear to auscultation. Breath sounds equal bilaterally. GASTROINTESTINAL: Abdomen soft, non-tender, nondistended. MUSCULOSKELETAL: No obvious deformities. No clubbing. No cyanosis. NEUROLOGICAL: Awake and alert. Motor grossly within normal limits. Normal speech. PSYCHIATRIC: Appropriate mood and affect; insight and judgment normal. Course Reevaluation(s) Reevaluation #1: ED workup shows hemoglobin of 7.3 now and given she is symptomatic she will be admitted and given 1 unit. Patient agrees to plan of care Consultations Consultation #1: resident team agrees to admit with dr up Initial Documented Vital Signs Temperature 97.6 F 06/07/18 15:25 Pulse Rate 93 H 06/07/18 15:25 Respiratory Rate 18 06/07/18 15:25 Blood Pressure 112/54 L 06/07/18 15:25 Pulse Oximetry 97 06/07/18 15:25 Last Documented Vital Signs Temperature 97.6 F 06/07/18 15:25 Pulse Rate 89 06/07/18 15:29 Respiratory Rate 21 06/07/18 15:29 Blood Pressure 111/56 L 06/07/18 15:29 Pulse Oximetry 95 06/07/18 15:29 Medical Decision Making MDM Narrative Medical decision making narrative: will check labs and reevaluate Medical Screen Exam Complete: Yes Emergency Medical Condition: Yes Differential Diagnosis Differential Diagnosis: anemia, lab error, renal failure Lab Data Result diagrams: 06/07/18 16:03 06/07/18 16:03 Lab Results 06/07/18 06/07/18 06/07/18 Range/Units 16:03 16:03 16:03 WBC 2.9 L (4.0-11.0) th/mm3 RBC 1.47 L (4.00-5.30) mil/mm3 Hgb 7.3 L (11.6-15.3) gm/dL Hct 20.4 L* (35.0-46.0) % MCV 139.4 H (80.0-100.0) fL MCH 49.6 H (27.0-34.0) pg MCHC 35.6 (32.0-36.0) % RDW 19.5 H (11.6-17.2) % Plt Count 349 (150-450) th/mm3 MPV 7.1 (7.0-11.0) fL Prelim Diff (Auto) Slide review pending Neut % (Auto) 76.9 H (16.0-70.0) % Lymph % (Auto) 12.8 (9.0-44.0) % Cross % (Auto) 9.7 H (0.0-8.0) % Eos % (Auto) 0.0 (0.0-4.0) % Baso % (Auto) 0.6 (0.0-2.0) % Neut # (Auto) 2.2 (1.8-7.7) th/mm3 Lymph # (Auto) 0.4 L (1.0-4.8) th/mm3 Cross # (Auto) 0.3 (0.0-0.9) th/mm3 Eos # (Auto) 0.0 (0.0-0.4) th/mm3 Baso # (Auto) 0.0 (0.0-0.2) th/mm3 WBC Differential . Diff Scan Auto diff confirmed Differential Comment . Platelet Estimate Normal (Normal) Platelet Morphology Enlarged H (Normal) PT 10.4 (9.8-11.6) sec INR 1.0 Ratio APTT 22.6 L (23.4-31.7) sec Sodium 131 L (136-145) meq/L Potassium 5.1 (3.5-5.1) meq/L Chloride 97 L (98-107) meq/L Carbon Dioxide 30.9 (21.0-32.0) meq/L Anion Gap 3 L (5-15) meq/L BUN 19 H (7-18) mg/dL Creatinine 1.04 H (0.50-1.00) mg/dL Estimated GFR 54 L (>89) mL/min Random Glucose 217 H (74-106) mg/dL Calcium 8.2 L (8.5-10.1) mg/dL Blood Type Antibody Screen MTS Gel Crossmatch 06/07/18 06/07/18 Range/Units 16:03 16:50 WBC (4.0-11.0) th/mm3 RBC (4.00-5.30) mil/mm3 Hgb (11.6-15.3) gm/dL Hct (35.0-46.0) % MCV (80.0-100.0) fL MCH (27.0-34.0) pg MCHC (32.0-36.0) % RDW (11.6-17.2) % Plt Count (150-450) th/mm3 MPV (7.0-11.0) fL Prelim Diff (Auto) Neut % (Auto) (16.0-70.0) % Lymph % (Auto) (9.0-44.0) % Cross % (Auto) (0.0-8.0) % Eos % (Auto) (0.0-4.0) % Baso % (Auto) (0.0-2.0) % Neut # (Auto) (1.8-7.7) th/mm3 Lymph # (Auto) (1.0-4.8) th/mm3 Cross # (Auto) (0.0-0.9) th/mm3 Eos # (Auto) (0.0-0.4) th/mm3 Baso # (Auto) (0.0-0.2) th/mm3 WBC Differential Diff Scan Differential Comment Platelet Estimate (Normal) Platelet Morphology (Normal) PT (9.8-11.6) sec INR Ratio APTT (23.4-31.7) sec Sodium (136-145) meq/L Potassium (3.5-5.1) meq/L Chloride (98-107) meq/L Carbon Dioxide (21.0-32.0) meq/L Anion Gap (5-15) meq/L BUN (7-18) mg/dL Creatinine (0.50-1.00) mg/dL Estimated GFR (>89) mL/min Random Glucose (74-106) mg/dL Calcium (8.5-10.1) mg/dL Blood Type A Positive Antibody Screen Negative MTS Gel Crossmatch See Detail Discharge Plan Discharge Disposition Patient Disposition: ED Admit(ED Internal Use Only) Discharge Order Discharge Orders: ED Use Only Admit Order (Routine); Ordered 06/07/18 Ordered By: Stephenie Medrano Discharge Details Diagnosis: Anemia Physicians Team ED Provider: Stephenie Medrano Primary Care Provider: UNKNOWN, Rxs /Orders / Referrals /Forms Prescriptions: No Action prednisone 10 mg Tablet 16 mg PO QAM RF: 0 trazodone 50 mg Tablet 50 mg PO DAILY PRN (Reason: Insomnia) RF: 0 insulin pump syringe 1.8 mL Misc RF: 0 tizanidine 2 mg Tablet 2 mg PO BID RF: 0 azathioprine 50 mg Tablet 50 mg PO BID RF: 0 digoxin 250 mcg Tablet 0.25 mg PO DAILY RF: 0 ciclopirox 8 % Solution 1 applic TOPICAL DAILY RF: 0 levothyroxine 100 mcg Tablet 50 mcg PO DAILY RF: 0 prednisone 1 mg Tablet 1 mg PO AC LUNCH RF: 0 pantoprazole 40 mg Tablet,Delayed Release (Dr/Ec) 40 mg PO DAILY RF: 0 lidocaine HCl [Lidocaine Viscous] 2 % Solution 15 ml MUCOUS MEMBRANE Q4-6H PRN (Reason: Pain) RF: 0 gabapentin 100 mg Capsule 300 mg PO DAILY RF: 0 duloxetine 20 mg Capsule,Delayed Release(Dr/Ec) 80 mg PO DAILY RF: 0 conj estrogens-bazedoxifene [Duavee] 0.45-20 mg Tablet 1 tab PO DAILY RF: 0 Discharge Interventions Interventions: Vital Signs Last Done: 06/07/18 15:29 Status ED Status: Admitted Observation Patient
[2018-06-07 16:29] LABS: Baso % (Auto) 0.6 % (0.0-2.0); Hemoglobin 7.3 gm/dL (11.6-15.3); Lymph # (Auto) 0.4 th/mm3 (1.0-4.8); Lymph % (Auto) 12.8 % (9.0-44.0); Mean Corpuscular HGB Conc 35.6 % (32.0-36.0); Mean Corpuscular Hemoglobin 49.6 pg (27.0-34.0); Mean Corpuscular Volume 139.4 fL (80.0-100.0); Mean Platelet Volume 7.1 fL (7.0-11.0); Mono # (Auto) 0.3 th/mm3 (0.0-0.9); Mono % (Auto) 9.7 % (0.0-8.0); Neut # (Auto) 2.2 th/mm3 (1.8-7.7); Neut % (Auto) 76.9 % (16.0-70.0); Platelet Count 349 th/mm3 (150-450); Red Blood Count 1.47 mil/mm3 (4.00-5.30); Red Cell Distribution Width 19.5 % (11.6-17.2); White Blood Count 2.9 th/mm3 (4.0-11.0)
[2018-06-07 16:36] LABS: Hematocrit 20.4 % (35.0-46.0)
[2018-06-07 16:39] LABS: Activated Partial Thrombo Time 22.6 sec (23.4-31.7); Prothrombin Time 10.4 sec (9.8-11.6)
[2018-06-07 16:43] LABS: Calcium 8.2 mg/dL (8.5-10.1); Carbon Dioxide 30.9 meq/L (21.0-32.0); Potassium 5.1 meq/L (3.5-5.1)
[2018-06-07 16:57] LABS: Platelet Estimate Normal (Normal)
[2018-06-07] MEDS ORDERED: Sod Chloride 0.9% Inj 1,000 ML IV.SIG SCH (17:00)
[2018-06-07] MEDS ORDERED: Sodium Chlor 0.9% Inj 250 ML IV.SIG SCH (17:00)
[2018-06-07] MEDS ORDERED: Acetaminophen 325 MG Tablet PO PRN ×2 (17:09→20:39)
[2018-06-07] MEDS ORDERED: Sod Chloride 0.9% Inj 1,000 ML IV.CONT SCH (17:15)
--- NOTE | 2018-06-07 18:32 | P.HPFP ---
Addendum entered and electronically signed by Andrew Conley MD, R3 00:47: Of note, patient does have an elevated creatinine to 1.04. Patient will be put on NS at 100 ml/hr and urinalysis ordered. Plan for repeat BMP in the AM. Original Note: History of Present Illness Primary Care Physician: UNKNOWN History of Present Illness: Mrs. Arce is a 62-year-old female presenting to the ED with symptomatic anemia. 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 She is currently managed by Dr. Rasmussen, rheumatology, who orders monthly surveillance laboratory evaluations per patient. She states that on 04/29/18 her hemoglobin was 11.1, however repeat laboratory studies on 05/29/18 showed her hemoglobin to be 7.9. Patient was then evaluated by Dr. Rasmussen, who recommended repeat CBC on 05/31/18 which showed a hemoglobin of 7.8. He then administered a vitamin B12 shot and instructed her to follow-up with her PCP which she was evaluated today at the [facility] where it was recommended she present to the ED for further evaluation due to suspected symptomatic anemia. She states over this timeframe of the last month she has felt daily fatigue, lightheadedness, intermittent tachycardia, extremity cramping, and increased difficulty walking. She states that the most concerning symptom to her is her fatigue and she states that it is "all day, every day." She states that she has no history of anemia and has not previously received a blood transfusion. She states that she had a "completely normal colonoscopy" a few years ago and denies any black/bloody stools. She denies any hematuria, however does state that her urine has become darker over the last 24 hours with a slight increase in urinary frequency. Otherwise she has no acute complaints. PMHx: Behcet's disease - Managed by Dr. Rasmussen T2DM with insulin pump with 3 days left with 4 days left on monitor Hypothyroidism SVT Chronic back pain vs stenosis Depression PSHx: Lumbar back surgery Cholecystectomy Appendectomy Tubal ligation R knee meniscus FHx: Sister - Breast cancer in remission Mother - Alzheimers Father -[place], CAD, tobacco abuse Social: Tobacco - No reported history Alcohol - 1 drink daily, no history of abuse Illicit - Treated with Medical Marijuana by Dr. Allison Other providers: PCPDr. Tucker/Dr. Kim RheumatologyDr. Rasmussen GynecologyDr. Benja Medical marijuanaDrJuan Pablo Goldstein PsychiatristDr. De Leon - Diagnosis (1) Symptomatic anemia (2) Behcets syndrome (3) Type 2 diabetes mellitus (4) Chronic pain (5) SVT (supraventricular tachycardia) (6) Hypothyroidism (7) GERD (gastroesophageal reflux disease) (8) Insomnia (9) Depression (10) Nutrition, metabolism, and development symptoms Estimated Total Length of Stay (Days): 3 Plans for Post Hospital Care: Home Review of Systems Constitutional: Reports body ache(s), Reports lack of energy, Reports night sweats, Reports weakness, Reports weight gain, Denies fever(s), Denies headache( s), Denies weight loss Eyes: Denies blurry vision, Denies pain Ears, Nose, Mouth, and Throat: Denies headache(s), Denies mouth pain Cardiovascular: Reports lightheadedness, Denies chest pain Respiratory: Denies chest congestion, Denies cough, Denies shortness of breath Gastrointestinal: Denies abdominal pain, Denies change in stools, Denies loose stools, Denies nausea, Denies vomiting, Denies vomiting blood Musculoskeletal: Reports abnormal walking, Reports body aches, Denies back pain Neurologic: Reports dizziness, Denies fainting, Denies headache(s) PMF - History History Provided By: Patient - Medical History Medical History: Medical History (Last Reviewed 06/07/18 @ 15:53 by Stephenie Medrano MD) Anxiety Behcet's disease Depression Diabetes GERD (gastroesophageal reflux disease) Hypothyroid POTS (postural orthostatic tachycardia syndrome) - Surgical History Surgical History: Surgical History (Last Reviewed 06/07/18 @ 15:53 by Stephenie Medrano MD) H/O right knee surgery H/O tubal ligation History of back surgery Hx of appendectomy Hx of cholecystectomy Hx of tonsillectomy - Tobacco History Second Hand Smoke Exposure: No Smoking Status: Never smoker - Alcohol History How Often Do You Have a Drink Containing Alcohol: 4 or more times a week - Substance Use History Substance History: Active Abuse - Substance Use Type Marijuana Route Used: Inhalation Comment: cbd oil - Travel History Recent Travel in the [place] Within the Last 8 Weeks: No Recent Travel Out of the Country Within the Last 8 Weeks: No - Immunization History Tetanus Immunization: <5 Years Medications and Allergies Active Medications: Active Medications Sodium Chloride (Ns Inj) 250 mls @ 15 mls/hr IV.SIG ONCE CRISTIAN Stop: 06/08/18 09:39 Last Admin: 06/07/18 17:48 Dose: 15 mls/hr Sodium Chloride (Ns Flush) 2 ml IV.FLUSH PRN PRN PRN Reason: FLUSH AFTER USING IV ACCESS Allergies Allergy/AdvReac Type Severity Reaction Status Date / Time pecan nut Allergy Intermediate joint Verified 06/07/18 15:30 swelling, elevated sed rate walnut Allergy Intermediate joint Verified 06/07/18 15:30 swelling, elevated sed rate ciprofloxacin AdvReac Intermediate Hives Verified 06/07/18 15:30 codeine AdvReac Mild nausea Verified 06/07/18 15:30 TAPE Allergy Intermediate SKIN PEELS Uncoded 06/07/18 15:30 Home Medications Medication Instructions Recorded Confirmed Type insulin pump syringe 05/17/18 06/07/18 History prednisone 16 mg PO QAM 05/17/18 06/07/18 History trazodone 50 mg PO DAILY PRN 05/17/18 06/07/18 History azathioprine 50 mg PO BID 06/07/18 06/07/18 History ciclopirox 1 applic TOPICAL DAILY 06/07/18 06/07/18 History conj estrogens-bazedoxifene 1 tab PO DAILY 06/07/18 06/07/18 History [Duavee] digoxin 0.25 mg PO DAILY 06/07/18 06/07/18 History duloxetine 80 mg PO DAILY 06/07/18 06/07/18 History gabapentin 300 mg PO DAILY 06/07/18 06/07/18 History levothyroxine 50 mcg PO DAILY 06/07/18 06/07/18 History lidocaine HCl [Lidocaine Viscous] 15 ml MUCOUS MEMBRANE Q4-6H PRN 06/07/1806/07 History pantoprazole 40 mg PO DAILY 06/07/18 06/07/18 History prednisone 1 mg PO AC LUNCH 06/07/18 06/07/18 History tizanidine 2 mg PO BID 06/07/18 06/07/18 History Exam Vital signs: Vital Signs 06/07/18 15:25 06/07/18 15:29 06/07/18 17:50 Temperature 97.6 F 98.5 F Pulse Rate 93 H 89 89 Respiratory Rate 18 21 20 Blood Pressure 112/54 L 111/56 L 113/59 L Pulse Oximetry 97 95 97 06/07/18 17:58 06/07/18 18:04 Temperature 98.0 F Pulse Rate 85 Respiratory Rate 20 Blood Pressure 114/56 L Pulse Oximetry 98 96 Intake & Output 06/06/18 06/07/18 06/07/18 18:59 06:59 18:59 Intake Total 1000 / 1000 Balance 1000 / 1000 Weight 68.492 kg Intake: IV 1000 / 1000 NS Inj 1,000 ML @ 1000 mls/hr 1000 / 1000 IV.SIG BOLUS CRISTIAN Rx#:[id number] Intake (Blood Product) Amt 0 / 0 Rbc As-5 Leukoreduced Unit 0 / 0 [id number] Narrative: GENERAL: Elderly patient that appears mildly pale lying in bed in no acute distress receiving blood transfusion. SKIN: Cool and dry. No rash on limited skin exam. Multiple SKs on back. Delayed capillary refill greater than 3 seconds. HEENT: Atraumatic, normocephalic with extraocular motions intact. No rhinorrhea. MMM. No palpable LAD, JVD, or thyroid abnormality appreciated. CARDIOVASCULAR: Tachycardic rate with regular rhythm. No MGR appreciated. 2+ pulses in all 4 extremities. RESPIRATORY: Clear to auscultation bilaterally with no crackles, wheezes, or rhonchi. No increased work of breathing. GASTROINTESTINAL: Abdomen soft, non-tender, nondistended with positive bowel sounds. No masses appreciated. MUSCULOSKELETAL: No cyanosis or edema. No calf tenderness. No CVA tenderness. Ambulating with assistance of cane (baseline) per report. NEURO/PSYCH: Afocal. Awake, alert, and oriented x3. Normal speech and judgement. Results - Labs Result diagrams: 06/07/18 16:03 06/07/18 16:03 Abnormal lab results 06/07/18 06/07/18 06/07/18 Range/Units 16:03 16:03 16:03 WBC 2.9 L (4.0-11.0) th/mm3 RBC 1.47 L (4.00-5.30) mil/mm3 Hgb 7.3 L (11.6-15.3) gm/dL Hct 20.4 L* (35.0-46.0) % MCV 139.4 H (80.0-100.0) fL MCH 49.6 H (27.0-34.0) pg RDW 19.5 H (11.6-17.2) % Neut % (Auto) 76.9 H (16.0-70.0) % [place] % (Auto) 9.7 H (0.0-8.0) % Lymph # (Auto) 0.4 L (1.0-4.8) th/mm3 Platelet Morphology Enlarged H (Normal) APTT 22.6 L (23.4-31.7) sec Sodium 131 L (136-145) meq/L Chloride 97 L (98-107) meq/L Anion Gap 3 L (5-15) meq/L BUN 19 H (7-18) mg/dL Creatinine 1.04 H (0.50-1.00) mg/dL Estimated GFR 54 L (>89) mL/min Random Glucose 217 H (74-106) mg/dL Calcium 8.2 L (8.5-10.1) mg/dL MTS Gel Crossmatch 06/07/18 Range/Units 16:50 WBC (4.0-11.0) th/mm3 RBC (4.00-5.30) mil/mm3 Hgb (11.6-15.3) gm/dL Hct (35.0-46.0) % MCV (80.0-100.0) fL MCH (27.0-34.0) pg RDW (11.6-17.2) % Neut % (Auto) (16.0-70.0) % [place] % (Auto) (0.0-8.0) % Lymph # (Auto) (1.0-4.8) th/mm3 Platelet Morphology (Normal) APTT (23.4-31.7) sec Sodium (136-145) meq/L Chloride (98-107) meq/L Anion Gap (5-15) meq/L BUN (7-18) mg/dL Creatinine (0.50-1.00) mg/dL Estimated GFR (>89) mL/min Random Glucose (74-106) mg/dL Calcium (8.5-10.1) mg/dL MTS Gel Crossmatch See Detail Short CBC 06/07/18 Range/Units 16:03 WBC 2.9 L (4.0-11.0) th/mm3 Hgb 7.3 L (11.6-15.3) gm/dL Hct 20.4 L* (35.0-46.0) % Plt Count 349 (150-450) th/mm3 [facility] 06/07/18 16:03 Sodium 131 L Potassium 5.1 Chloride 97 L Carbon Dioxide 30.9 BUN 19 H Creatinine 1.04 H Calcium 8.2 L Caprini VTE Risk Assessment Caprini VTE Risk Assessment: Moderate/High Risk (score >= 2) VTE Pharmacological Exception Reason: Hemorrhage Caprini Risk Assessment Model: Point Value = 1 Point Value = 2 Point Value = 3 Point Value = 5 Age 41-60 Minor surgery BMI > 25 kg/m2 Swollen legs Varicose veins or History of unexplained or recurrent spontaneous Oral contraceptives or hormone replacement Sepsis (< 1 month) Serious lung disease, including pneumonia (< 1 month) Abnormal pulmonary function Acute myocardial infarction Congestive heart failure (< 1 month) History of inflammatory bowel disease Medical patient at bed rest Age 61-74 Arthroscopic surgery Major open surgery (> 45 min) Laparoscopic surgery (> 45 min) Malignancy Confined to bed (> 72 hours) Immobilizing plaster cast Central venous access Age >= 75 History of VTE Family history of VTE Factor V Leiden Prothrombin [id number] Lupus anticoagulant Anticardiolipin antibodies Elevated serum homocysteine Heparin-induced thrombocytopenia Other congenital or acquired thrombophilia Stroke (< 1 month) Elective arthroplasty Hip, pelvis, or leg fracture Acute spinal cord injury (< 1 month) Prophylaxis Regimen: Total Risk Factor Score Risk Level Prophylaxis Regimen 0-1 Low Early ambulation 2 Moderate Order ONE of the following: *Sequential Compression Device (SCD) *Heparin 5000 units SQ BID 3-4 Higher Order ONE of the following medications: *Heparin 5000 units SQ TID *Enoxaparin/Lovenox 40 mg SQ daily (WT < 150 kg, CrCl > 30 mL/min) *Enoxaparin/Lovenox 30 mg SQ daily (WT < 150 kg, CrCl > 10-29 mL/min) *Enoxaparin/Lovenox 30 mg SQ BID (WT < 150 kg, CrCl > 30 mL/min) AND/OR *Sequential Compression Device (SCD) 5 or more Highest Order ONE of the following medications: *Heparin 5000 units SQ TID (Preferred with Epidurals) *Enoxaparin/Lovenox 40 mg SQ daily (WT < 150 kg, CrCl > 30 mL/min) *Enoxaparin/Lovenox 30 mg SQ daily (WT < 150 kg, CrCl > 10-29 mL/min) *Enoxaparin/Lovenox 30 mg SQ BID (WT < 150 kg, CrCl > 30 mL/min) AND *Sequential Compression Device (SCD) Assessment and Plan - Assessment (1) Symptomatic anemia Code(s): D64.9 - Anemia, unspecified Status: Acute Plan: Patient admitted for symptomatic anemia of unknown origin. Patient shows no signs or symptoms of acute bleeding at this time. Possibly related to azathioprine use. CBC: WBC 2.9, H/H 7.3/20.4, platelets 349 Coagulation: PT 10.4, INR 1.0, PTT 22.6 Iron profile: Pending Reticulocyte count: Pending Haptoglobin: Pending LDH: Pending Hemoccult: Pending TSH: Pending Pathologic slide review: Pending 2 units PRBC ordered per ED staff Plan to repeat CBC in the morning posttransfusion (2) Behcets syndrome Code(s): M35.2 - Behcet's disease Status: Chronic Plan: Patient with history of Behcet's syndrome Medications: Continue home azathioprine twice daily Continue home prednisone 15 mg each morning at 5 AM and 1 mg each day at noon (3) Type 2 diabetes mellitus Code(s): E11.9 - Type 2 diabetes mellitus without complications Status: Chronic Plan: Patient with history of type 2 diabetes mellitus currently on daily prednisone Medications: Patient currently has continues glucose monitoring and insulin pump (4) Chronic pain Code(s): G89.29 - Other chronic pain Status: Chronic Plan: Patient with history of chronic pain requiring multiple medications Medications: Continue home tizanidine 2 mg twice daily Continue home gabapentin 300 mg nightly Hold home medical marijuana Patient reports she previously received daily hydrocodone and tramadol; plan to restart hydrocodone 5 mg daily at this time and plan to titrate as needed (5) SVT (supraventricular tachycardia) Code(s): I47.1 - Supraventricular tachycardia Status: Chronic Plan: Patient with history of SVT Medications: Continue home digoxin 250 mcg daily (6) Hypothyroidism Code(s): E03.9 - Hypothyroidism, unspecified Status: Chronic (7) GERD (gastroesophageal reflux disease) Code(s): K21.9 - Gastro-esophageal reflux disease without esophagitis Status: Chronic Plan: Patient with history of gastroesophageal reflux disease Medications: Continue home pantoprazole daily (8) Insomnia Code(s): G47.00 - Insomnia, unspecified Status: Chronic Plan: Patient with history of insomnia Medications: Continue home trazodone nightly (9) Depression Code(s): F32.9 - Major depressive disorder, single episode, unspecified Status : Chronic Plan: Patient with history of depression Medications: Continue home duloxetine 80 mg daily (10) Nutrition, metabolism, and development symptoms Code(s): R63.8 - Other symptoms and signs concerning food and fluid intake Status: Acute Plan: Diet: Diabetic diet as tolerated Fluids: Normal saline at 100 mL/h after transfusion Electrolytes: Hyponatremia as above, continue to monitor DVT prophylaxis: Deferred due to symptomatic anemia, SCDs Prophylaxis: Zofran as needed for nausea/vomiting, Tylenol as needed for fever, constipation protocol
[2018-06-07] MEDS ORDERED: Bisacodyl 10 MG Supp RECTAL PRN (20:39)
[2018-06-07] MEDS ORDERED: Senna/Docusate Sodium 8.6/50 MG Tablet PO SCH (21:00)
[2018-06-07] MEDS ORDERED: azaTHIOprine 50 MG Tablet PO SCH (21:00)
[2018-06-07] MEDS: Sod Chloride 0.9% Inj 1,000 ML IV.CONT SCH (21:04)
[2018-06-07] MEDS: Gabapentin 100 MG Capsule PO SCH (21:46)
[2018-06-07] MEDS: traZODone 50 MG Tablet PO PRN (22:24)
[2018-06-08 03:14] LABS: Amorphous Sediment,Urine Rare /hpf; Bacteria,Urine Rare /hpf; Bilirubin,Urine Negative (Negative); Clarity,Urine Turbid (Clear); Glucose,Urine (UA) Negative (Negative); Leukocyte Esterase,Urine Large (Negative); Nitrite,Urine Positive (Negative); Specific Gravity,Urine 1.006 (1.002-1.035); Squamous Epithelial Cell,Urine 1 /hpf (0-5)
[2018-06-08 03:15] LABS: Color,Urine Dark-Yellow (Yellw/Straw)
[2018-06-08] MEDS: predniSONE Liq 5 MG/5 ML UDC PO SCH (04:53)
[2018-06-08] MEDS: Levothyroxine 100 MCG Tablet PO SCH (04:59)
[2018-06-08 05:11] LABS: Baso % (Auto) 0.8 % (0.0-2.0); Eos % (Auto) 0.2 % (0.0-4.0); Hematocrit 21.8 % (35.0-46.0); Hemoglobin 7.6 gm/dL (11.6-15.3); Lymph # (Auto) 0.4 th/mm3 (1.0-4.8); Lymph % (Auto) 12.3 % (9.0-44.0); Mean Corpuscular Hemoglobin 43.2 pg (27.0-34.0); Mean Corpuscular Volume 123.4 fL (80.0-100.0); Mono # (Auto) 0.2 th/mm3 (0.0-0.9); Mono % (Auto) 5.9 % (0.0-8.0); Neut # (Auto) 2.5 th/mm3 (1.8-7.7); Neut % (Auto) 80.8 % (16.0-70.0); Platelet Count 286 th/mm3 (150-450); Red Blood Count 1.77 mil/mm3 (4.00-5.30); Red Cell Distribution Width 31.1 % (11.6-17.2); White Blood Count 3.1 th/mm3 (4.0-11.0)
[2018-06-08 05:15] LABS: Reticulocyte Percent 4.9 % (0.4-3.0)
[2018-06-08 05:48] LABS: Alanine Aminotransferase 18 U/L (10-53); Albumin 3.1 g/dL (3.4-5.0); Alkaline Phosphatase 41 U/L (45-117); Anion Gap 6 meq/L (5-15); Aspartate Aminotransferase 17 U/L (15-37); Blood Urea Nitrogen 20 mg/dL (7-18); Calcium 7.7 mg/dL (8.5-10.1); Carbon Dioxide 26.8 meq/L (21.0-32.0); Chloride 108 meq/L (98-107); Glomerular Filtration Rate 72 mL/min (>89); Glucose,Random 57 mg/dL (74-106); Iron 201 mcg/dL (50-170); Lactate Dehydrogenase 255 U/L (84-246); Potassium 4.1 meq/L (3.5-5.1); Sodium 141 meq/L (136-145); Thyroid Stimulating Hormone 0.501 uIU/mL (0.358-3.740); Total Iron Binding Capacity 218 mcg/dL (250-450); Total Protein 5.4 g/dL (6.4-8.2)
[2018-06-08] MEDS: Sod Chloride 0.9% Inj 1,000 ML IV.CONT SCH ×2 (05:59→09:55)
[2018-06-08 07:02] LABS: Lymphocytes 17 % (9-44); Monocytes 5 % (0-8)
[2018-06-08 07:03] LABS: Dimorphic RBC Present; Platelet Estimate Normal (Normal); Platelet Morphology Normal (Normal)
[2018-06-08] MEDS ORDERED: Dextrose 50% in Water 50 ML Vial IV.PUSH PRN (07:27)
[2018-06-08] MEDS ORDERED: [UNRECOGNIZED DRUG - OTHER] PO SCH (09:00)
[2018-06-08] MEDS: Digoxin 250 MCG Tablet PO SCH (09:56)
--- NOTE | 2018-06-08 10:57 | P.PNFP ---
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 Today she still feels fatigued and lightheaded, but a bit better since getting 1 unit PRBC yesterday. No CP. SOB somewhat with exertion. No aches/pains. <Ada Rodrigo Conley S - 06/08/18 10:57> Results - Labs Result diagrams: 06/08/18 04:00 06/08/18 04:00 <Jose Antonio Kim - 06/08/18 16:28> Abnormal lab results 06/07/18 06/07/18 06/07/18 Range/Units 16:03 16:03 16:03 WBC 2.9 L (4.0-11.0) th/mm3 RBC 1.47 L (4.00-5.30) mil/mm3 Hgb 7.3 L (11.6-15.3) gm/dL Hct 20.4 L* (35.0-46.0) % MCV 139.4 H (80.0-100.0) fL MCH 49.6 H (27.0-34.0) pg RDW 19.5 H (11.6-17.2) % Neut % (Auto) 76.9 H (16.0-70.0) % Piatt % (Auto) 9.7 H (0.0-8.0) % Lymph # (Auto) 0.4 L (1.0-4.8) th/mm3 Band Neuts % (Manual) (0-6) % Platelet Morphology Enlarged H (Normal) Dimorphic RBCs (None) Retic Count (0.4-3.0) % Haptoglobin (30-200) mg/dL APTT 22.6 L (23.4-31.7) sec Sodium 131 L (136-145) meq/L Chloride 97 L (98-107) meq/L Anion Gap 3 L (5-15) meq/L BUN 19 H (7-18) mg/dL Creatinine 1.04 H (0.50-1.00) mg/dL Estimated GFR 54 L (>89) mL/min POC Glucose (68-110) mg/dl Random Glucose 217 H (74-106) mg/dL Calcium 8.2 L (8.5-10.1) mg/dL Iron (50-170) mcg/dL TIBC (250-450) mcg/dL % Saturation (20-50) % Ferritin (8-252) ng/mL Alkaline Phosphatase (45-117) U/L Lactate Dehydrogenase (84-246) U/L Total Protein (6.4-8.2) g/dL Albumin (3.4-5.0) g/dL Vitamin B12 (193-986) pg/mL Folate (3.1-17.5) ng/mL Urine Color (Yellw/Straw) Urine Clarity (Clear) Urine Protein (Neg-Trace) mg/dL Urine Occult Blood (Negative) Urine Nitrate (Negative) Ur Leukocyte Esterase (Negative) Urine RBC (0-3) /hpf Urine WBC (0-5) /hpf Amorphous Sediment (None) /hpf Urine Bacteria (None) /hpf Urine Osmolality (300-1300) mosm/kg MTS Gel Crossmatch 06/07/18 06/08/18 06/08/18 Range/Units 16:50 01:00 01:00 WBC (4.0-11.0) th/mm3 RBC (4.00-5.30) mil/mm3 Hgb (11.6-15.3) gm/dL Hct (35.0-46.0) % MCV (80.0-100.0) fL MCH (27.0-34.0) pg RDW (11.6-17.2) % Neut % (Auto) (16.0-70.0) % Piatt % (Auto) (0.0-8.0) % Lymph # (Auto) (1.0-4.8) th/mm3 Band Neuts % (Manual) (0-6) % Platelet Morphology (Normal) Dimorphic RBCs (None) Retic Count (0.4-3.0) % Haptoglobin (30-200) mg/dL APTT (23.4-31.7) sec Sodium (136-145) meq/L Chloride (98-107) meq/L Anion Gap (5-15) meq/L BUN (7-18) mg/dL Creatinine (0.50-1.00) mg/dL Estimated GFR (>89) mL/min POC Glucose (68-110) mg/dl Random Glucose (74-106) mg/dL Calcium (8.5-10.1) mg/dL Iron (50-170) mcg/dL TIBC (250-450) mcg/dL % Saturation (20-50) % Ferritin (8-252) ng/mL Alkaline Phosphatase (45-117) U/L Lactate Dehydrogenase (84-246) U/L Total Protein (6.4-8.2) g/dL Albumin (3.4-5.0) g/dL Vitamin B12 (193-986) pg/mL Folate (3.1-17.5) ng/mL Urine Color Dark-yellow H (Yellw/Straw) Urine Clarity Turbid H (Clear) Urine Protein 100 H (Neg-Trace) mg/dL Urine Occult Blood Small H (Negative) Urine Nitrate Positive H (Negative) Ur Leukocyte Esterase Large H (Negative) Urine RBC 13 H (0-3) /hpf Urine WBC 112 H (0-5) /hpf Amorphous Sediment Rare H (None) /hpf Urine Bacteria Rare H (None) /hpf Urine Osmolality 218 L (300-1300) mosm/kg MTS Gel Crossmatch See Detail 06/08/18 06/08/18 06/08/18 Range/Units 04:00 04:00 04:00 WBC 3.1 L (4.0-11.0) th/mm3 RBC 1.77 L (4.00-5.30) mil/mm3 Hgb 7.6 L (11.6-15.3) gm/dL Hct 21.8 L (35.0-46.0) % MCV 123.4 H D (80.0-100.0) fL MCH 43.2 H (27.0-34.0) pg RDW 31.1 H D (11.6-17.2) % Neut % (Auto) 80.8 H (16.0-70.0) % Piatt % (Auto) (0.0-8.0) % Lymph # (Auto) 0.4 L (1.0-4.8) th/mm3 Band Neuts % (Manual) 17 H (0-6) % Platelet Morphology (Normal) Dimorphic RBCs Present H (None) Retic Count 4.9 H (0.4-3.0) % Haptoglobin Less than 10 L (30-200) mg/dL APTT (23.4-31.7) sec Sodium (136-145) meq/L Chloride 108 H D (98-107) meq/L Anion Gap (5-15) meq/L BUN 20 H (7-18) mg/dL Creatinine (0.50-1.00) mg/dL Estimated GFR 72 L (>89) mL/min POC Glucose (68-110) mg/dl Random Glucose 57 L D (74-106) mg/dL Calcium 7.7 L (8.5-10.1) mg/dL Iron 201 H (50-170) mcg/dL TIBC 218 L (250-450) mcg/dL % Saturation 92.0 H (20-50) % Ferritin (8-252) ng/mL Alkaline Phosphatase 41 L (45-117) U/L Lactate Dehydrogenase 255 H (84-246) U/L Total Protein 5.4 L (6.4-8.2) g/dL Albumin 3.1 L (3.4-5.0) g/dL Vitamin B12 (193-986) pg/mL Folate (3.1-17.5) ng/mL Urine Color (Yellw/Straw) Urine Clarity (Clear) Urine Protein (Neg-Trace) mg/dL Urine Occult Blood (Negative) Urine Nitrate (Negative) Ur Leukocyte Esterase (Negative) Urine RBC (0-3) /hpf Urine WBC (0-5) /hpf Amorphous Sediment (None) /hpf Urine Bacteria (None) /hpf Urine Osmolality (300-1300) mosm/kg MTS Gel Crossmatch 06/08/18 06/08/18 06/08/18 Range/Units 07:42 11:38 11:47 WBC (4.0-11.0) th/mm3 RBC (4.00-5.30) mil/mm3 Hgb (11.6-15.3) gm/dL Hct (35.0-46.0) % MCV (80.0-100.0) fL MCH (27.0-34.0) pg RDW (11.6-17.2) % Neut % (Auto) (16.0-70.0) % Piatt % (Auto) (0.0-8.0) % Lymph # (Auto) (1.0-4.8) th/mm3 Band Neuts % (Manual) (0-6) % Platelet Morphology (Normal) Dimorphic RBCs (None) Retic Count (0.4-3.0) % Haptoglobin (30-200) mg/dL APTT (23.4-31.7) sec Sodium (136-145) meq/L Chloride (98-107) meq/L Anion Gap (5-15) meq/L BUN (7-18) mg/dL Creatinine (0.50-1.00) mg/dL Estimated GFR (>89) mL/min POC Glucose 58 L 294 H (68-110) mg/dl Random Glucose (74-106) mg/dL Calcium (8.5-10.1) mg/dL Iron (50-170) mcg/dL TIBC (250-450) mcg/dL % Saturation (20-50) % Ferritin 445 H (8-252) ng/mL Alkaline Phosphatase (45-117) U/L Lactate Dehydrogenase (84-246) U/L Total Protein (6.4-8.2) g/dL Albumin (3.4-5.0) g/dL Vitamin B12 1307 H (193-986) pg/mL Folate Greater than 20.0 H (3.1-17.5) ng/mL Urine Color (Yellw/Straw) Urine Clarity (Clear) Urine Protein (Neg-Trace) mg/dL Urine Occult Blood (Negative) Urine Nitrate (Negative) Ur Leukocyte Esterase (Negative) Urine RBC (0-3) /hpf Urine WBC (0-5) /hpf Amorphous Sediment (None) /hpf Urine Bacteria (None) /hpf Urine Osmolality (300-1300) mosm/kg MTS Gel Crossmatch Short CBC 06/07/18 06/08/18 Range/Units 16:03 04:00 WBC 2.9 L 3.1 L (4.0-11.0) th/mm3 Hgb 7.3 L 7.6 L (11.6-15.3) gm/dL Hct 20.4 L* 21.8 L (35.0-46.0) % Plt Count 349 286 (150-450) th/mm3 BMP 06/07/18 06/08/18 16:03 04:00 Sodium 131 L 141 D Potassium 5.1 4.1 D Chloride 97 L 108 H D Carbon Dioxide 30.9 26.8 BUN 19 H 20 H Creatinine 1.04 H 0.80 Calcium 8.2 L 7.7 L Liver Function 06/08/18 Range/Units 04:00 Total Bilirubin 0.8 (0.2-1.0) mg/dL AST 17 (15-37) U/L ALT 18 (10-53) U/L Alkaline Phosphatase 41 L (45-117) U/L Albumin 3.1 L (3.4-5.0) g/dL Urine 06/08/18 Range/Units 01:00 Urine Color Dark-yellow H (Yellw/Straw) Urine Clarity Turbid H (Clear) Urine pH 7.0 (5.0-8.5) Ur Specific [place] 1.006 (1.002-1.035) Urine Protein 100 H (Neg-Trace) mg/dL Urine Glucose (UA) Negative (Negative) mg/dL <Jose Antonio Kim - 06/08/18 16:28> Abnormal lab results 06/07/18 06/07/18 06/07/18 Range/Units 16:03 16:03 16:03 WBC 2.9 L (4.0-11.0) th/mm3 RBC 1.47 L (4.00-5.30) mil/mm3 Hgb 7.3 L (11.6-15.3) gm/dL Hct 20.4 L* (35.0-46.0) % MCV 139.4 H (80.0-100.0) fL MCH 49.6 H (27.0-34.0) pg RDW 19.5 H (11.6-17.2) % Neut % (Auto) 76.9 H (16.0-70.0) % Piatt % (Auto) 9.7 H (0.0-8.0) % Lymph # (Auto) 0.4 L (1.0-4.8) th/mm3 Band Neuts % (Manual) (0-6) % Platelet Morphology Enlarged H (Normal) Dimorphic RBCs (None) Retic Count (0.4-3.0) % Haptoglobin (30-200) mg/dL APTT 22.6 L (23.4-31.7) sec Sodium 131 L (136-145) meq/L Chloride 97 L (98-107) meq/L Anion Gap 3 L (5-15) meq/L BUN 19 H (7-18) mg/dL Creatinine 1.04 H (0.50-1.00) mg/dL Estimated GFR 54 L (>89) mL/min POC Glucose (68-110) mg/dl Random Glucose 217 H (74-106) mg/dL Calcium 8.2 L (8.5-10.1) mg/dL Iron (50-170) mcg/dL TIBC (250-450) mcg/dL % Saturation (20-50) % Alkaline Phosphatase (45-117) U/L Lactate Dehydrogenase (84-246) U/L Total Protein (6.4-8.2) g/dL Albumin (3.4-5.0) g/dL Urine Color (Yellw/Straw) Urine Clarity (Clear) Urine Protein (Neg-Trace) mg/dL Urine Occult Blood (Negative) Urine Nitrate (Negative) Ur Leukocyte Esterase (Negative) Urine RBC (0-3) /hpf Urine WBC (0-5) /hpf Amorphous Sediment (None) /hpf Urine Bacteria (None) /hpf Urine Osmolality (300-1300) mosm/kg MTS Gel Crossmatch 06/07/18 06/08/18 06/08/18 Range/Units 16:50 01:00 01:00 WBC (4.0-11.0) th/mm3 RBC (4.00-5.30) mil/mm3 Hgb (11.6-15.3) gm/dL Hct (35.0-46.0) % MCV (80.0-100.0) fL MCH (27.0-34.0) pg RDW (11.6-17.2) % Neut % (Auto) (16.0-70.0) % Piatt % (Auto) (0.0-8.0) % Lymph # (Auto) (1.0-4.8) th/mm3 Band Neuts % (Manual) (0-6) % Platelet Morphology (Normal) Dimorphic RBCs (None) Retic Count (0.4-3.0) % Haptoglobin (30-200) mg/dL APTT (23.4-31.7) sec Sodium (136-145) meq/L Chloride (98-107) meq/L Anion Gap (5-15) meq/L BUN (7-18) mg/dL Creatinine (0.50-1.00) mg/dL Estimated GFR (>89) mL/min POC Glucose (68-110) mg/dl Random Glucose (74-106) mg/dL Calcium (8.5-10.1) mg/dL Iron (50-170) mcg/dL TIBC (250-450) mcg/dL % Saturation (20-50) % Alkaline Phosphatase (45-117) U/L Lactate Dehydrogenase (84-246) U/L Total Protein (6.4-8.2) g/dL Albumin (3.4-5.0) g/dL Urine Color Dark-yellow H (Yellw/Straw) Urine Clarity Turbid H (Clear) Urine Protein 100 H (Neg-Trace) mg/dL Urine Occult Blood Small H (Negative) Urine Nitrate Positive H (Negative) Ur Leukocyte Esterase Large H (Negative) Urine RBC 13 H (0-3) /hpf Urine WBC 112 H (0-5) /hpf Amorphous Sediment Rare H (None) /hpf Urine Bacteria Rare H (None) /hpf Urine Osmolality 218 L (300-1300) mosm/kg MTS Gel Crossmatch See Detail 06/08/18 06/08/18 06/08/18 Range/Units 04:00 04:00 04:00 WBC 3.1 L (4.0-11.0) th/mm3 RBC 1.77 L (4.00-5.30) mil/mm3 Hgb 7.6 L (11.6-15.3) gm/dL Hct 21.8 L (35.0-46.0) % MCV 123.4 H D (80.0-100.0) fL MCH 43.2 H (27.0-34.0) pg RDW 31.1 H D (11.6-17.2) % Neut % (Auto) 80.8 H (16.0-70.0) % Piatt % (Auto) (0.0-8.0) % Lymph # (Auto) 0.4 L (1.0-4.8) th/mm3 Band Neuts % (Manual) 17 H (0-6) % Platelet Morphology (Normal) Dimorphic RBCs Present H (None) Retic Count 4.9 H (0.4-3.0) % Haptoglobin Less than 10 L (30-200) mg/dL APTT (23.4-31.7) sec Sodium (136-145) meq/L Chloride 108 H D (98-107) meq/L Anion Gap (5-15) meq/L BUN 20 H (7-18) mg/dL Creatinine (0.50-1.00) mg/dL Estimated GFR 72 L (>89) mL/min POC Glucose (68-110) mg/dl Random Glucose 57 L D (74-106) mg/dL Calcium 7.7 L (8.5-10.1) mg/dL Iron 201 H (50-170) mcg/dL TIBC 218 L (250-450) mcg/dL % Saturation 92.0 H (20-50) % Alkaline Phosphatase 41 L (45-117) U/L Lactate Dehydrogenase 255 H (84-246) U/L Total Protein 5.4 L (6.4-8.2) g/dL Albumin 3.1 L (3.4-5.0) g/dL Urine Color (Yellw/Straw) Urine Clarity (Clear) Urine Protein (Neg-Trace) mg/dL Urine Occult Blood (Negative) Urine Nitrate (Negative) Ur Leukocyte Esterase (Negative) Urine RBC (0-3) /hpf Urine WBC (0-5) /hpf Amorphous Sediment (None) /hpf Urine Bacteria (None) /hpf Urine Osmolality (300-1300) mosm/kg MTS Gel Crossmatch 06/08/18 Range/Units 07:42 WBC (4.0-11.0) th/mm3 RBC (4.00-5.30) mil/mm3 Hgb (11.6-15.3) gm/dL Hct (35.0-46.0) % MCV (80.0-100.0) fL MCH (27.0-34.0) pg RDW (11.6-17.2) % Neut % (Auto) (16.0-70.0) % Piatt % (Auto) (0.0-8.0) % Lymph # (Auto) (1.0-4.8) th/mm3 Band Neuts % (Manual) (0-6) % Platelet Morphology (Normal) Dimorphic RBCs (None) Retic Count (0.4-3.0) % Haptoglobin (30-200) mg/dL APTT (23.4-31.7) sec Sodium (136-145) meq/L Chloride (98-107) meq/L Anion Gap (5-15) meq/L BUN (7-18) mg/dL Creatinine (0.50-1.00) mg/dL Estimated GFR (>89) mL/min POC Glucose 58 L (68-110) mg/dl Random Glucose (74-106) mg/dL Calcium (8.5-10.1) mg/dL Iron (50-170) mcg/dL TIBC (250-450) mcg/dL % Saturation (20-50) % Alkaline Phosphatase (45-117) U/L Lactate Dehydrogenase (84-246) U/L Total Protein (6.4-8.2) g/dL Albumin (3.4-5.0) g/dL Urine Color (Yellw/Straw) Urine Clarity (Clear) Urine Protein (Neg-Trace) mg/dL Urine Occult Blood (Negative) Urine Nitrate (Negative) Ur Leukocyte Esterase (Negative) Urine RBC (0-3) /hpf Urine WBC (0-5) /hpf Amorphous Sediment (None) /hpf Urine Bacteria (None) /hpf Urine Osmolality (300-1300) mosm/kg MTS Gel Crossmatch Short CBC 06/07/18 06/08/18 Range/Units 16:03 04:00 WBC 2.9 L 3.1 L (4.0-11.0) th/mm3 Hgb 7.3 L 7.6 L (11.6-15.3) gm/dL Hct 20.4 L* 21.8 L (35.0-46.0) % Plt Count 349 286 (150-450) th/mm3 BMP 06/07/18 06/08/18 16:03 04:00 Sodium 131 L 141 D Potassium 5.1 4.1 D Chloride 97 L 108 H D Carbon Dioxide 30.9 26.8 BUN 19 H 20 H Creatinine 1.04 H 0.80 Calcium 8.2 L 7.7 L Liver Function 06/08/18 Range/Units 04:00 Total Bilirubin 0.8 (0.2-1.0) mg/dL AST 17 (15-37) U/L ALT 18 (10-53) U/L Alkaline Phosphatase 41 L (45-117) U/L Albumin 3.1 L (3.4-5.0) g/dL Urine 06/08/18 Range/Units 01:00 Urine Color Dark-yellow H (Yellw/Straw) Urine Clarity Turbid H (Clear) Urine pH 7.0 (5.0-8.5) Ur Specific [place] 1.006 (1.002-1.035) Urine Protein 100 H (Neg-Trace) mg/dL Urine Glucose (UA) Negative (Negative) mg/dL <Caballero R3Cliffy S - 06/08/18 10:57> Physical Exam Vital signs: Vital Signs 06/07/18 17:50 06/07/18 17:58 06/07/18 18:04 Temperature 98.5 F 98.0 F Pulse Rate 89 85 Respiratory Rate 20 20 Blood Pressure 113/59 L 114/56 L Pulse Oximetry 97 98 96 06/07/18 18:42 06/07/18 19:20 06/07/18 23:52 Temperature 98.2 F 97.9 F 97.7 F Pulse Rate 85 98 H 98 H Respiratory Rate 20 17 17 Blood Pressure 116/57 L 110/56 L 104/55 L Pulse Oximetry 95 95 93 L 06/08/18 04:00 06/08/18 08:00 06/08/18 11:50 Temperature 97.5 F L 98.1 F Pulse Rate 88 107 H 83 Respiratory Rate 16 17 Blood Pressure 116/54 L 121/58 L Pulse Oximetry 93 L 94 L 06/08/18 12:00 06/08/18 14:40 06/08/18 14:59 Temperature 97.9 F 98.0 F 98.0 F Pulse Rate 87 89 88 Respiratory Rate 18 16 Blood Pressure 111/55 L 115/54 L 109/56 L Pulse Oximetry 94 L 96 96 06/08/18 15:15 Temperature 98.2 F Pulse Rate 88 Respiratory Rate 20 Blood Pressure 107/53 L Pulse Oximetry 92 L Intake & Output 06/07/18 06/08/18 06/08/18 18:59 06:59 18:59 Intake Total 1400 / 1400 1900 / 1900 850 / 850 Output Total 1999 / 1999 Balance 1400 / 1400 -100 / -100 850 / 850 Weight 68.492 kg 68.4 kg Intake: IV 1000 / 1000 700 / 700 850 / 850 NS Inj 1,000 ML @ 100 mls/hr IV 700 / 700 750 / 750 .CONT .Q10H [facility] Rx#:[id number] NS Inj 1,000 ML @ 1000 mls/hr 1000 / 1000 IV.SIG BOLUS [facility] Rx#:[id number] Rocephin Inj 1,000 MG In NS Inj 100 / 100 100 ML @ 200 mls/hr IV.SIG Q12H [facility] Rx#:[id number] Oral 1200 / 1200 Intake (Blood Product) Amt 400 / 400 0 / 0 Rbc As-3 Leukoreduced Unit 0 / 0 [id number] Rbc As-5 Leukoreduced Unit 400 / 400 [id number] Output: Urine 1999 Other: Date of Last Bowel Movement 06/08/18 06/08/18 # Bowel Movements 1 Weight On Admission 69 kg <Jose Antonio Kim Thomas - 06/08/18 16:28> Vital Signs 06/07/18 15:25 06/07/18 15:29 06/07/18 17:50 Temperature 97.6 F 98.5 F Pulse Rate 93 H 89 89 Respiratory Rate 18 21 20 Blood Pressure 112/54 L 111/56 L 113/59 L Pulse Oximetry 97 95 97 06/07/18 17:58 06/07/18 18:04 06/07/18 18:42 Temperature 98.0 F 98.2 F Pulse Rate 85 85 Respiratory Rate 20 20 Blood Pressure 114/56 L 116/57 L Pulse Oximetry 98 96 95 06/07/18 19:20 06/07/18 23:52 06/08/18 04:00 Temperature 97.9 F 97.7 F 97.5 F L Pulse Rate 98 H 98 H 88 Respiratory Rate 17 17 16 Blood Pressure 110/56 L 104/55 L 116/54 L Pulse Oximetry 95 93 L 93 L 06/08/18 08:00 Temperature 98.1 F Pulse Rate 89 Respiratory Rate 17 Blood Pressure 121/58 L Pulse Oximetry 94 L Intake & Output 06/07/18 06/08/18 06/08/18 18:59 06:59 18:59 Intake Total 1400 / 1400 1900 / 1900 300 / 300 Output Total 1999 Balance 1400 / 1400 -100 / -100 300 / 300 Weight 68.492 kg 68.4 kg Intake: IV 1000 / 1000 700 / 700 300 / 300 NS Inj 1,000 ML @ 100 mls/hr IV 700 / 700 300 / 300 .CONT .Q10H [facility] Rx#:[id number] NS Inj 1,000 ML @ 1000 mls/hr 1000 / 1000 IV.SIG BOLUS [facility] Rx#:[id number] Oral 1200 / 1200 Intake (Blood Product) Amt 400 / 400 Rbc As-5 Leukoreduced Unit 400 / 400 [id number] Output: Urine 1999 Other: Date of Last Bowel Movement 06/08/18 # Bowel Movements 1 Weight On Admission 69 kg <Rodrigo Anna 06/08/18 10:57> - Constitutional no acute distress, average body habitus <Rodrigo Anna 06/08/18 10:57> Comments: sitting up in chair eating breakfast, pleasant <Rodrigo Anna 06/08/18 10:57> - Routine HEENT Exam Head: Present: normocephalic, atraumatic <Rodrigo Anna 06/08/18 10:57> ENT: Present: mucous membranes moist <Rodrigo Anna 06/08/18 10:57> - Routine Respiratory Exam Present: CTA bilaterally. Absent: accessory muscle use, wheezes, crackles < Rodrigo Anna 06/08/18 10:57> - Routine Cardiovascular Exam Present: RRR, S1, S2. Absent: murmur <Rodrigo Anna 06/08/18 10:57> - Routine Abdominal Exam Present: soft <Rodrigo Anna 06/08/18 10:57> - Routine Extremities Exam Absent: cyanosis, edema <Rodrigo Anna 06/08/18 10:57> - Routine Neurological Exam Present: alert, oriented X3, moving all extremities, normal speech <Rodrigo Anna 06/08/18 10:57> - Routine Psychiatric Exam Present: normal affect <Rodrigo Anna 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 (5) Type 2 diabetes mellitus Code(s): E11.9 - Type 2 diabetes mellitus without complications Status: Chronic (6) Chronic pain Code(s): G89.29 - Other chronic pain Status: Chronic (7) SVT (supraventricular tachycardia) Code(s): I47.1 - Supraventricular tachycardia Status: Chronic (8) Hypothyroidism Code(s): E03.9 - Hypothyroidism, unspecified Status: Chronic (9) GERD (gastroesophageal reflux disease) Code(s): K21.9 - Gastro-esophageal reflux disease without esophagitis Status: Chronic (10) Insomnia Code(s): G47.00 - Insomnia, unspecified Status: Chronic (11) Depression Code(s): F32.9 - Major depressive disorder, single episode, unspecified Status : Chronic (12) Nutrition, metabolism, and development symptoms Code(s): R63.8 - Other symptoms and signs concerning food and fluid intake Status: Acute <Jose Antonio Kim - 06/08/18 16:28> (1) Symptomatic anemia Code(s): D64.9 - Anemia, unspecified Status: Acute Plan: Patient admitted for symptomatic anemia of unknown origin. Patient shows no signs or symptoms of acute bleeding at this time. Possibly related to azathioprine use, but also now possibly due to autoimmune process (hemolysis noted). Symptoms improving after 1 unit PRBC. Leukopenia improving 3.1 Anemia improving 7.6 Macrocytosis likely related to reticulocytosis Plt normal Coagulation: PT 10.4, INR 1.0, PTT 22.6 Retic count: 4.6 TSH: Slightly elevated ~5 Pathologic slide review: Pending LDH elevated, haptoglobin low - suggests hemolytic anemia Check Direct [place], MMA, B12, Folate -Consult hematology for additional evaluation; suspect AIHA -Hold AZT for now since anemia and leukopenia are known side effects, although AZT would not explain hemolysis (2) Hemolytic anemia Code(s): D58.9 - Hereditary hemolytic anemia, unspecified Status: Acute (3) Leukopenia Code(s): D72.819 - Decreased white blood cell count, unspecified Status: Acute (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 Plan: Patient with history of Behcet's syndrome Hold AZT for now Continue home prednisone 15 mg each morning at 5 AM and 1 mg each day at noon (5) Type 2 diabetes mellitus Code(s): E11.9 - Type 2 diabetes mellitus without complications Status: Chronic Plan: Patient with history of type 2 diabetes mellitus currently on daily prednisone Patient currently has continues glucose monitoring and insulin pump -Accu-checks AC/HS to assist, but patient manages insulin herself (6) Chronic pain Code(s): G89.29 - Other chronic pain Status: Chronic Plan: Patient with history of chronic pain requiring multiple medications Medications: Continue home tizanidine 2 mg twice daily Continue home gabapentin 300 mg nightly Hold home medical marijuana Patient reports she previously received daily hydrocodone and tramadol; plan to restart hydrocodone 5 mg HS at this time and her home tramadol/APAP combo QID PRN (7) SVT (supraventricular tachycardia) Code(s): I47.1 - Supraventricular tachycardia Status: Chronic Plan: Patient with history of SVT Medications: Continue home digoxin 250 mcg daily (8) Hypothyroidism Code(s): E03.9 - Hypothyroidism, unspecified Status: Chronic Plan: TSH slightly elevated -Continue current dose of synthroid -Check free T4 (9) GERD (gastroesophageal reflux disease) Code(s): K21.9 - Gastro-esophageal reflux disease without esophagitis Status: Chronic Plan: Patient with history of gastroesophageal reflux disease Medications: Continue home pantoprazole daily (10) Insomnia Code(s): G47.00 - Insomnia, unspecified Status: Chronic Plan: Patient with history of insomnia Medications: Continue home trazodone nightly (11) Depression Code(s): F32.9 - Major depressive disorder, single episode, unspecified Status : Chronic Plan: Patient with history of depression Medications: Continue home duloxetine 60 mg daily (12) Nutrition, metabolism, and development symptoms Code(s): R63.8 - Other symptoms and signs concerning food and fluid intake Status: Acute Plan: Diet: Diabetic diet as tolerated Fluids: DC IVF; eating and drinking well Electrolytes: continue to monitor DVT prophylaxis: Deferred pharm PPX due to symptomatic anemia; SCDs Prophylaxis: Zofran as needed for nausea/vomiting, Tylenol as needed for fever, constipation protocol <Rodrigo Anna S - 06/08/18 10:37> - Attending Attestation The exam, history, and the medical decision-making described in the above note were completed with the assistance of the resident physician. I reviewed and agree with the findings presented. I attest that I had a [id number] encounter with the patient on the same day, and personally performed and documented my assessment and findings in the medical record. Agree with resident note. On my encounter this AM she did state that she was lightheaded once when getting up but does feel a little better after transfusion. still no hematuria, hematochezia, hemoptysis, epistaxis or any other signs of bleeding. no cp/sob. Gen: NAD, alert and oriented HEENT: EOMI, conjunctival pallor, OP clear with MMM, no lesions identified CV: RRR 2/6 systolic murmur, good cap refil Pulm: CTAB, no increased WOB ABD: NTND + BS Ext: no c/c/e Skin: well perfused, dry, warm, scaly papules and coalescent plaques on anterior shins Psych: appropriate Neuro: no focal abnormalities noted on overall exam A/P: Agree with above, hold azathiaprine as possible reason for myelosuppression/ megaloblastic anemia. Known MTHFR Negative and has been on for many years with acute change recently. no overt signs of acute blood loss, FOBT pending. Although haptoglobin low and LDH normal, no schistocytes on peripheral smear. Will transfuse second unit today as she still seems symptomatic. Appreciate hematology input <Jose Antonio Kim 06/08/18 16:28>
[2018-06-08] MEDS: predniSONE 1 MG Tablet PO SCH (12:23)
[2018-06-08] MEDS: traMADol/Acetaminophen 37.5/325 MG Tablet PO PRN ×2 (12:23→19:39)
[2018-06-08 13:30] LABS: Ferritin 445 ng/mL (8-252); Vitamin B12 1307 pg/mL (193-986)
[2018-06-08] MEDS ORDERED: Sodium Chlor 0.9% Inj 250 ML IV.SIG SCH (14:00)
[2018-06-08 20:10] LABS: Hematocrit 28.4 % (35.0-46.0)
[2018-06-08] MEDS: Gabapentin 100 MG Capsule PO SCH (20:29)
--- NOTE | 2018-06-09 00:47 | P.CON ---
History of Present Illness Consult date: 06/08/18 Reason for Consult: Anemia Primary Care Provider: UNKNOWN History of Present Illness: Ms. 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 LAbs on 04/29/2018 with hemoglboin of 11.1. Repeat studies in 05/2018 with aneima. AT that poing in time her prednisone and imuran were changes by DR. Rasmussen. She reports that her Behcet's disease in in a flare. She is s/p transfusion of 2 units of PRBC. Labs with replete iron folate. Elevated reticulocyte count. Direcdt anayeli negative. Haptoglobin low. LDH slightly elevated. SMear with evidence of megaloblastic anemai. TSH within normal limits. Denites ETOH. Review of Systems All other systems reviewed negative except as stated in HPI PMFSH - History History Provided By: Patient - Medical History Medical History: Medical History (Last Reviewed 06/07/18 @ 15:53 by Stephenie Medrano MD) Anxiety Behcet's disease Depression Diabetes GERD (gastroesophageal reflux disease) Hypothyroid POTS (postural orthostatic tachycardia syndrome) - Surgical History Surgical History: Surgical History (Last Reviewed 06/07/18 @ 15:53 by Stephenie Medrano MD) H/O right knee surgery H/O tubal ligation History of back surgery Hx of appendectomy Hx of cholecystectomy Hx of tonsillectomy - Tobacco History Second Hand Smoke Exposure: No Tobacco Use In Past 30 Days: No Smoking Status: Never smoker - Alcohol History How Often Do You Have a Drink Containing Alcohol: 4 or more times a week - Substance Use History Substance History: Active Abuse - Substance Use Type Marijuana Route Used: Inhalation Comment: cbd oil - Travel History Recent Travel in the [place] Within the Last 8 Weeks: No Recent Travel Out of the Country Within the Last 8 Weeks: No - Immunization History Tetanus Immunization: <5 Years Hx Influenza Vaccine This Season: No Medications and Allergies Active Medications: Active Medications Acetaminophen (Tylenol) 650 mg PO Q4H PRN PRN Reason: Temp > 100.4 Hydrocodone Bitart/Acetaminophen ([place] 5/325) 1 tab PO HS [facility] Last Admin: 06/08/18 21:00 Dose: 1 tab Al Hydroxide/Mg Hydroxide (Milk Of Magnesia Liq) 30 ml PO Q12H PRN PRN Reason: Mild Constipation Bisacodyl (Dulcolax Supp) 10 mg RECTAL DAILY PRN PRN Reason: SEVERE CONSITIPATION Dextrose (D50w Vial) 50 ml IV.PUSH UNSCH PRN PRN Reason: PER HYPOGLYCEMIA PROTOCOL Digoxin (Lanoxin) 250 mcg PO DAILY [facility] Last Admin: 06/08/18 09:56 Dose: 250 mcg Duloxetine HCl (Cymbalta) 80 mg PO DAILY [facility] Last Admin: 06/08/18 09:56 Dose: 80 mg Gabapentin (Neurontin) 300 mg PO HS [facility] Last Admin: 06/08/18 20:29 Dose: 300 mg Glucagon (Glucagon Inj) 1 mg OTHER PRN PRN PRN Reason: for Hypoglycemia Protocol Ceftriaxone Sodium 1,000 mg/ (Sodium Chloride) 100 mls @ 200 mls/hr IV.SIG Q12H [facility] Last Infusion: 06/08/18 21:15 Dose: Infused Sodium Chloride (Ns Inj) 250 mls @ 15 mls/hr IV.SIG ONCE [facility] Stop: 06/09/18 06:39 Last Infusion: 06/08/18 19:38 Dose: Infused Lactulose (Lactulose Liq) 30 ml PO DAILY PRN PRN Reason: SEVERE CONSITIPATION Levothyroxine Sodium (Synthroid) 100 mcg PO DAILY@0600 [facility] Last Admin: 06/08/18 04:59 Dose: 100 mcg Ondansetron HCl (Zofran Inj) 4 mg IV.PUSH Q6H PRN PRN Reason: NAUSEA OR VOMITING Pantoprazole Sodium (Protonix) 40 mg PO DAILY [facility] Last Admin: 06/08/18 09:56 Dose: 40 mg Conj Estrogens- Bazedoxifene [Duavee ] 1 Tab 0 each PO DAILY [facility] Prednisone (Deltasone Liq) 16 mg PO DAILY@0500 [facility] Last Admin: 06/08/18 04:53 Dose: 16 mg Prednisone (Deltasone) 1 mg PO AC LUNCH [facility] Last Admin: 06/08/18 12:23 Dose: 1 mg Sennosides (Senokot) 17.2 mg PO Q12H PRN PRN Reason: Moderate Constipation Sodium Chloride (Ns Flush) 2 ml IV.FLUSH PRN PRN PRN Reason: FLUSH AFTER USING IV ACCESS Sodium Chloride (Ns Flush) 2 ml IV.FLUSH BID [facility] Last Admin: 06/08/18 20:30 Dose: 2 ml Sodium Chloride (Ns Flush) 2 ml IV.FLUSH PRN PRN PRN Reason: FLUSH AFTER USING IV ACCESS Tizanidine HCl (Zanaflex) 2 mg PO BID [facility] Last Admin: 06/08/18 20:30 Dose: 2 mg Tramadol/Acetaminophen (Ultracet 37.5/325 Mg) 1 tab PO QID PRN PRN Reason: PAIN SCALE 1-10 Last Admin: 06/08/18 19:39 Dose: 1 tab Trazodone HCl (Desyrel) 50 mg PO HS PRN PRN Reason: Insomnia Last Admin: 06/07/18 22:24 Dose: 50 mg Allergies Allergy/AdvReac Type Severity Reaction Status Date / Time pecan nut Allergy Intermediate joint Verified 06/07/18 15:30 swelling, elevated sed rate walnut Allergy Intermediate joint Verified 06/07/18 15:30 swelling, elevated sed rate ciprofloxacin AdvReac Intermediate Hives Verified 06/07/18 15:30 codeine AdvReac Mild nausea Verified 06/07/18 15:30 TAPE Allergy Intermediate SKIN PEELS Uncoded 06/07/18 15:30 Home Medications Medication Instructions Recorded Confirmed Type insulin pump syringe 05/17/18 06/07/18 History prednisone 16 mg PO QAM 05/17/18 06/07/18 History trazodone 50 mg PO DAILY PRN 05/17/18 06/07/18 History azathioprine 50 mg PO BID 06/07/18 06/07/18 History ciclopirox 1 applic TOPICAL DAILY 06/07/18 06/07/18 History conj estrogens-bazedoxifene 1 tab PO DAILY 06/07/18 06/07/18 History [Duavee] digoxin 0.25 mg PO DAILY 06/07/18 06/07/18 History duloxetine 80 mg PO DAILY 06/07/18 06/07/18 History gabapentin 300 mg PO DAILY 06/07/18 06/07/18 History levothyroxine 50 mcg PO DAILY 06/07/18 06/07/18 History lidocaine HCl [Lidocaine Viscous] 15 ml MUCOUS MEMBRANE Q4-6H PRN 06/07/1806/07 History pantoprazole 40 mg PO DAILY 06/07/18 06/07/18 History prednisone 1 mg PO AC LUNCH 06/07/18 06/07/18 History tizanidine 2 mg PO BID 06/07/18 06/07/18 History Physical Exam Vital signs: Vital Signs 06/08/18 04:00 06/08/18 08:00 06/08/18 11:50 Temperature 97.5 F L 98.1 F Pulse Rate 88 107 H 83 Respiratory Rate 16 17 Blood Pressure 116/54 L 121/58 L Pulse Oximetry 93 L 94 L 06/08/18 12:00 06/08/18 14:40 06/08/18 14:59 Temperature 97.9 F 98.0 F 98.0 F Pulse Rate 87 89 88 Respiratory Rate 18 16 Blood Pressure 111/55 L 115/54 L 109/56 L Pulse Oximetry 94 L 96 96 06/08/18 15:15 06/08/18 15:54 06/08/18 18:00 Temperature 98.2 F 98.3 F Pulse Rate 88 84 86 Respiratory Rate 20 20 Blood Pressure 107/53 L 130/60 Pulse Oximetry 92 L 98 06/08/18 20:00 06/08/18 21:28 06/08/18 23:21 Temperature 98.1 F 98.0 F Pulse Rate 90 91 H Respiratory Rate 16 16 Blood Pressure 125/58 L 106/53 L Pulse Oximetry 94 L 98 95 06/08/18 23:47 Temperature Pulse Rate Respiratory Rate 16 Blood Pressure Pulse Oximetry Intake & Output 06/08/18 06/08/18 06/09/18 06:59 18:59 06:59 Intake Total 1900 / 1900 1970 / 1969 350 / 350 Output Total 1999 / 2099 Balance -100 / -100 -130 / -130 350 / 350 Weight 68.4 kg Intake: IV 700 / 700 850 / 850 350 / 350 NS Inj 1,000 ML @ 100 mls/hr IV 700 / 700 750 / 750 .CONT .Q10H [facility] Rx#:[id number] NS Inj 250 ML @ 15 mls/hr IV. 250 / 250 SIG ONCE [facility] Rx#:[id number] Rocephin Inj 1,000 MG In NS Inj 100 / 100 100 / 100 100 ML @ 200 mls/hr IV.SIG Q12H [facility] Rx#:[id number] Oral 1200 / 1200 720 / 720 Intake (Blood Product) Amt 400 / 400 Rbc As-3 Leukoreduced Unit 400 / 400 [id number] Output: Urine 1999 / 2099 Other: Date of Last Bowel Movement 06/08/18 06/08/18 06/08/18 # Bowel Movements 1 0 Weight On Admission 69 kg - Constitutional no acute distress - Routine HEENT Exam Head: Present: normocephalic Eye: Present: EOMI, PERRL - Routine Neck Exam Present: supple - Routine Respiratory Exam Present: accessory muscle use - Routine Cardiovascular Exam Present: RRR - Routine Abdominal Exam Present: soft - Routine Extremities Exam Comments: No edema Results - Labs CBC & Chem 7: 06/08/18 19:34 06/08/18 04:00 Labs: Laboratory Results - last 24 hr 06/07/18 06/08/18 06/08/18 16:50 01:00 01:00 WBC RBC Hgb Hct MCV MCH MCHC RDW Plt Count MPV Prelim Diff (Auto) Neut % (Auto) Lymph % (Auto) [place] % (Auto) Eos % (Auto) Baso % (Auto) Neut # (Auto) Lymph # (Auto) [place] # (Auto) Eos # (Auto) Baso # (Auto) WBC Differential Seg Neuts % (Manual) Band Neuts % (Manual) Lymphocytes % (Manual) Monocytes % (Manual) Abs Neuts (Manual) Differential Comment Platelet Estimate Platelet Morphology Dimorphic RBCs Smear Path Review Retic Count Absolute Retic Haptoglobin Sodium Potassium Chloride Carbon Dioxide Anion Gap BUN Creatinine Estimated GFR POC Glucose Random Glucose Calcium Iron TIBC % Saturation Ferritin Total Bilirubin AST ALT Alkaline Phosphatase Lactate Dehydrogenase Total Protein Albumin Vitamin B12 Folate TSH Urine Color Urine Clarity Urine pH Ur Specific [place] Urine Protein Urine Glucose (UA) Urine Ketones Urine Occult Blood Urine Nitrate Urine Bilirubin Urine Urobilinogen Ur Leukocyte Esterase Urine RBC Urine WBC Ur Squamous Epith Cells Amorphous Sediment Urine Bacteria Micro UA Comment Ur Microscopic Review Urine Culture Comments Urine Osmolality 218 L Ur Random Sodium 99 Direct Antiglob Test MTS Gel Crossmatch See Detail 06/08/18 06/08/18 06/08/18 01:00 04:00 04:00 WBC RBC Hgb Hct MCV MCH MCHC RDW Plt Count MPV Prelim Diff (Auto) Neut % (Auto) Lymph % (Auto) [place] % (Auto) Eos % (Auto) Baso % (Auto) Neut # (Auto) Lymph # (Auto) [place] # (Auto) Eos # (Auto) Baso # (Auto) WBC Differential Seg Neuts % (Manual) Band Neuts % (Manual) Lymphocytes % (Manual) Monocytes % (Manual) Abs Neuts (Manual) Differential Comment Platelet Estimate Platelet Morphology Dimorphic RBCs Smear Path Review Retic Count 4.9 H Absolute Retic 85.4 Haptoglobin Less than 10 L Sodium 141 D Potassium 4.1 D Chloride 108 H D Carbon Dioxide 26.8 Anion Gap 6 BUN 20 H Creatinine 0.80 Estimated GFR 72 L POC Glucose Random Glucose 57 L D Calcium 7.7 L Iron 201 H TIBC 218 L % Saturation 92.0 H Ferritin Total Bilirubin 0.8 AST 17 ALT 18 Alkaline Phosphatase 41 L Lactate Dehydrogenase 255 H Total Protein 5.4 L Albumin 3.1 L Vitamin B12 Folate TSH 0.501 Urine Color Dark-yellow H Urine Clarity Turbid H Urine pH 7.0 Ur Specific [place] 1.006 Urine Protein 100 H Urine Glucose (UA) Negative Urine Ketones Negative Urine Occult Blood Small H Urine Nitrate Positive H Urine Bilirubin Negative Urine Urobilinogen Less than 2 Ur Leukocyte Esterase Large H Urine RBC 13 H Urine WBC 112 H Ur Squamous Epith Cells 1 Amorphous Sediment Rare H Urine Bacteria Rare H Micro UA Comment Culture indicated Ur Microscopic Review Not Reportable Urine Culture Comments Culture indicated Urine Osmolality Ur Random Sodium Direct Antiglob Test MTS Gel Crossmatch 06/08/18 06/08/18 06/08/18 04:00 04:00 07:42 WBC 3.1 L RBC 1.77 L Hgb 7.6 L Hct 21.8 L MCV 123.4 H D MCH 43.2 H MCHC 35.0 RDW 31.1 H D Plt Count 286 MPV 7.0 Prelim Diff (Auto) Slide review pending Neut % (Auto) 80.8 H Lymph % (Auto) 12.3 [place] % (Auto) 5.9 Eos % (Auto) 0.2 Baso % (Auto) 0.8 Neut # (Auto) 2.5 Lymph # (Auto) 0.4 L [place] # (Auto) 0.2 Eos # (Auto) 0.0 Baso # (Auto) 0.0 WBC Differential Manual diff final Seg Neuts % (Manual) 61 Band Neuts % (Manual) 17 H Lymphocytes % (Manual) 17 Monocytes % (Manual) 5 Abs Neuts (Manual) 2.4 Differential Comment . Platelet Estimate Normal Platelet Morphology Normal Dimorphic RBCs Present H Smear Path Review Retic Count Absolute Retic Haptoglobin Sodium Potassium Chloride Carbon Dioxide Anion Gap BUN Creatinine Estimated GFR POC Glucose 58 L Random Glucose Calcium Iron TIBC % Saturation Ferritin Total Bilirubin AST ALT Alkaline Phosphatase Lactate Dehydrogenase Total Protein Albumin Vitamin B12 Folate TSH Urine Color Urine Clarity Urine pH Ur Specific [place] Urine Protein Urine Glucose (UA) Urine Ketones Urine Occult Blood Urine Nitrate Urine Bilirubin Urine Urobilinogen Ur Leukocyte Esterase Urine RBC Urine WBC Ur Squamous Epith Cells Amorphous Sediment Urine Bacteria Micro UA Comment Ur Microscopic Review Urine Culture Comments Urine Osmolality Ur Random Sodium Direct Antiglob Test MTS Gel Crossmatch 06/08/18 06/08/18 06/08/18 10:26 11:38 11:47 WBC RBC Hgb Hct MCV MCH MCHC RDW Plt Count MPV Prelim Diff (Auto) Neut % (Auto) Lymph % (Auto) [place] % (Auto) Eos % (Auto) Baso % (Auto) Neut # (Auto) Lymph # (Auto) [place] # (Auto) Eos # (Auto) Baso # (Auto) WBC Differential Seg Neuts % (Manual) Band Neuts % (Manual) Lymphocytes % (Manual) Monocytes % (Manual) Abs Neuts (Manual) Differential Comment Platelet Estimate Platelet Morphology Dimorphic RBCs Smear Path Review Retic Count Absolute Retic Haptoglobin Sodium Potassium Chloride Carbon Dioxide Anion Gap BUN Creatinine Estimated GFR POC Glucose 294 H Random Glucose Calcium Iron TIBC % Saturation Ferritin 445 H Total Bilirubin AST ALT Alkaline Phosphatase Lactate Dehydrogenase Total Protein Albumin Vitamin B12 1307 H Folate Greater than 20.0 H TSH Urine Color Urine Clarity Urine pH Ur Specific [place] Urine Protein Urine Glucose (UA) Urine Ketones Urine Occult Blood Urine Nitrate Urine Bilirubin Urine Urobilinogen Ur Leukocyte Esterase Urine RBC Urine WBC Ur Squamous Epith Cells Amorphous Sediment Urine Bacteria Micro UA Comment Ur Microscopic Review Urine Culture Comments Urine Osmolality Ur Random Sodium Direct Antiglob Test Negative MTS Gel Crossmatch 06/08/18 06/08/18 06/08/18 17:47 19:34 19:34 WBC RBC Hgb 10.0 L D Hct 28.4 L MCV MCH MCHC RDW Plt Count MPV Prelim Diff (Auto) Neut % (Auto) Lymph % (Auto) [place] % (Auto) Eos % (Auto) Baso % (Auto) Neut # (Auto) Lymph # (Auto) [place] # (Auto) Eos # (Auto) Baso # (Auto) WBC Differential Seg Neuts % (Manual) Band Neuts % (Manual) Lymphocytes % (Manual) Monocytes % (Manual) Abs Neuts (Manual) Differential Comment Platelet Estimate Platelet Morphology Dimorphic RBCs Smear Path Review Retic Count Absolute Retic Haptoglobin Sodium Potassium Chloride Carbon Dioxide Anion Gap BUN Creatinine Estimated GFR POC Glucose 161 H Random Glucose Calcium Iron TIBC % Saturation Ferritin Total Bilirubin AST ALT Alkaline Phosphatase Lactate Dehydrogenase Total Protein Albumin Vitamin B12 Folate TSH Urine Color Urine Clarity Urine pH Ur Specific [place] Urine Protein Urine Glucose (UA) Urine Ketones Urine Occult Blood Urine Nitrate Urine Bilirubin Urine Urobilinogen Ur Leukocyte Esterase Urine RBC Urine WBC Ur Squamous Epith Cells Amorphous Sediment Urine Bacteria Micro UA Comment Ur Microscopic Review Urine Culture Comments Urine Osmolality Ur Random Sodium Direct Antiglob Test MTS Gel Crossmatch Assessment and Plan - Plan Megaloblastic anemia: large RBC, increased retic presents on PBS. No ebdience of schistocytes, TMA. Patient has acdtive rhematologic changes. Drug induced macroytosis cand be seen in patient on azathioprine therapy. With negative direct anayeli diagnosis of hemoglytic anemia is less likely.
[2018-06-09] MEDS: predniSONE Liq 5 MG/5 ML UDC PO SCH (04:48)
[2018-06-09] MEDS: traMADol/Acetaminophen 37.5/325 MG Tablet PO PRN ×2 (04:48→17:12)
[2018-06-09] MEDS: Levothyroxine 100 MCG Tablet PO SCH (05:02)
[2018-06-09 05:32] LABS: Baso % (Auto) 0.9 % (0.0-2.0); Eos % (Auto) 0.3 % (0.0-4.0); Hematocrit 27.1 % (35.0-46.0); Hemoglobin 9.6 gm/dL (11.6-15.3); Lymph # (Auto) 0.8 th/mm3 (1.0-4.8); Lymph % (Auto) 20.1 % (9.0-44.0); Mean Corpuscular HGB Conc 35.3 % (32.0-36.0); Mean Corpuscular Volume 116.2 fL (80.0-100.0); Mean Platelet Volume 7.1 fL (7.0-11.0); Mono # (Auto) 0.4 th/mm3 (0.0-0.9); Mono % (Auto) 9.6 % (0.0-8.0); Neut # (Auto) 2.8 th/mm3 (1.8-7.7); Neut % (Auto) 69.1 % (16.0-70.0); Platelet Count 287 th/mm3 (150-450); Red Blood Count 2.34 mil/mm3 (4.00-5.30); Red Cell Distribution Width 33.5 % (11.6-17.2); Reticulocyte Percent 3.9 % (0.4-3.0)
[2018-06-09 06:01] LABS: Calcium 8.7 mg/dL (8.5-10.1); Carbon Dioxide 27.8 meq/L (21.0-32.0); Potassium 4.1 meq/L (3.5-5.1)
[2018-06-09 07:25] LABS: Lymphocytes 23 % (9-44); Monocytes 5 % (0-8)
[2018-06-09 07:26] LABS: Dimorphic RBC Present; Ovalocytes 1+; Platelet Estimate Normal (Normal); Polychromasia 2.5 % (0.0-1.9)
[2018-06-09 07:27] LABS: Acanthocytes Occ; Platelet Morphology Normal (Normal)
[2018-06-09] MEDS: Digoxin 250 MCG Tablet PO SCH (09:35)
--- NOTE | 2018-06-09 10:32 | P.PNFP ---
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 Fatigue, MEMBR[place], and lightheadedness better since getting additional 1 unit PRBC yesterday. No CP. Notes headache today which she states she gets a couple times a year. No weakness. Results - Labs Result diagrams: 06/09/18 04:17 06/09/18 04:17 Abnormal lab results 06/07/18 06/08/18 06/08/18 Range/Units 16:50 11:38 11:47 RBC (4.00-5.30) mil/mm3 Hgb (11.6-15.3) gm/dL Hct (35.0-46.0) % MCV (80.0-100.0) fL MCH (27.0-34.0) pg RDW (11.6-17.2) % [place] % (Auto) (0.0-8.0) % Lymph # (Auto) (1.0-4.8) th/mm3 Dimorphic RBCs (None) Polychromasia (0.0-1.9) % Ovalocytes (None) Acanthocytes (Spur) (None) Keratocytes (None) Retic Count (0.4-3.0) % Estimated GFR (>89) mL/min POC Glucose 294 H (68-110) mg/dl Ferritin 445 H (8-252) ng/mL Vitamin B12 1307 H (193-986) pg/mL Folate Greater than 20.0 H (3.1-17.5) ng/mL MTS Gel Crossmatch See Detail 06/08/18 06/08/18 06/09/18 Range/Units 17:47 19:34 04:17 RBC 2.34 L (4.00-5.30) mil/mm3 Hgb 10.0 L D 9.6 L (11.6-15.3) gm/dL Hct 28.4 L 27.1 L (35.0-46.0) % MCV 116.2 H D (80.0-100.0) fL MCH 41.0 H (27.0-34.0) pg RDW 33.5 H (11.6-17.2) % [place] % (Auto) 9.6 H (0.0-8.0) % Lymph # (Auto) 0.8 L (1.0-4.8) th/mm3 Dimorphic RBCs Present H (None) Polychromasia 2.5 H (0.0-1.9) % Ovalocytes 1+ H (None) Acanthocytes (Spur) Occ H (None) Keratocytes Occ H (None) Retic Count 3.9 H (0.4-3.0) % Estimated GFR (>89) mL/min POC Glucose 161 H (68-110) mg/dl Ferritin (8-252) ng/mL Vitamin B12 (193-986) pg/mL Folate (3.1-17.5) ng/mL MTS Gel Crossmatch 06/09/18 Range/Units 04:17 RBC (4.00-5.30) mil/mm3 Hgb (11.6-15.3) gm/dL Hct (35.0-46.0) % MCV (80.0-100.0) fL MCH (27.0-34.0) pg RDW (11.6-17.2) % [place] % (Auto) (0.0-8.0) % Lymph # (Auto) (1.0-4.8) th/mm3 Dimorphic RBCs (None) Polychromasia (0.0-1.9) % Ovalocytes (None) Acanthocytes (Spur) (None) Keratocytes (None) Retic Count (0.4-3.0) % Estimated GFR 72 L (>89) mL/min POC Glucose (68-110) mg/dl Ferritin (8-252) ng/mL Vitamin B12 (193-986) pg/mL Folate (3.1-17.5) ng/mL MTS Gel Crossmatch Short CBC 06/08/18 06/09/18 Range/Units 19:34 04:17 WBC 4.0 (4.0-11.0) th/mm3 Hgb 10.0 L D 9.6 L (11.6-15.3) gm/dL Hct 28.4 L 27.1 L (35.0-46.0) % Plt Count 287 (150-450) th/mm3 [facility] 06/09/18 04:17 Sodium 140 Potassium 4.1 Chloride 105 Carbon Dioxide 27.8 BUN 17 Creatinine 0.80 Calcium 8.7 D Physical Exam Vital signs: Vital Signs 06/08/18 11:50 06/08/18 12:00 06/08/18 14:40 Temperature 97.9 F 98.0 F Pulse Rate 83 87 89 Respiratory Rate 18 16 Blood Pressure 111/55 L 115/54 L Pulse Oximetry 94 L 96 06/08/18 14:59 06/08/18 15:15 06/08/18 15:54 Temperature 98.0 F 98.2 F Pulse Rate 88 88 84 Respiratory Rate 20 Blood Pressure 109/56 L 107/53 L Pulse Oximetry 96 92 L 06/08/18 18:00 06/08/18 20:00 06/08/18 21:28 Temperature 98.3 F 98.1 F Pulse Rate 86 90 Respiratory Rate 20 16 Blood Pressure 130/60 125/58 L Pulse Oximetry 98 94 L 98 06/08/18 23:21 06/08/18 23:47 06/09/18 00:00 Temperature 98.0 F Pulse Rate 91 H 95 H Respiratory Rate 16 16 Blood Pressure 106/53 L Pulse Oximetry 95 06/09/18 03:16 06/09/18 04:15 Temperature 98.0 F Pulse Rate 89 84 Respiratory Rate 16 Blood Pressure 112/57 L Pulse Oximetry 94 L Intake & Output 06/08/18 06/09/18 06/09/18 18:59 06:59 18:59 Intake Total 1969 / 1969 1070 / 1070 Output Total 2099 1450 / 1450 Balance -130 / -130 -380 / -380 Weight 69.7 kg Intake: IV 850 / 850 350 / 350 NS Inj 1,000 ML @ 100 mls/hr IV 750 / 750 .CONT .Q10H [facility] Rx#:[id number] NS Inj 250 ML @ 15 mls/hr IV. 250 / 250 SIG ONCE [facility] Rx#:[id number] Rocephin Inj 1,000 MG In NS Inj 100 / 100 100 / 100 100 ML @ 200 mls/hr IV.SIG Q12H [facility] Rx#:[id number] Oral 720 / 720 720 / 720 Intake (Blood Product) Amt 400 / 400 Rbc As-3 Leukoreduced Unit 400 / 400 [id number] Output: Urine 2099 1450 / 1450 Other: Date of Last Bowel Movement 06/08/18 06/08/18 # Bowel Movements 0 0 - Constitutional no acute distress, average body habitus, cooperative - Routine HEENT Exam Head: Present: normocephalic, atraumatic Eye: Present: EOMI ENT: Present: mucous membranes moist - Routine Respiratory Exam Present: CTA bilaterally. Absent: accessory muscle use, wheezes, crackles - Routine Cardiovascular Exam Present: RRR, S1, S2. Absent: murmur - Routine Abdominal Exam Present: soft. Absent: tenderness - Routine Extremities Exam Absent: cyanosis, edema - Routine Skin Exam Present: intact - Routine Neurological Exam Present: alert, moving all extremities, normal speech Assessment and Plan - Assessment (1) Symptomatic anemia Code(s): D64.9 - Anemia, unspecified Status: Acute Plan: Patient admitted for symptomatic anemia of unknown origin. Patient shows no signs or symptoms of acute bleeding at this time. Possibly related to azathioprine use, unlikely to be hemolytic anemia. Symptoms improved after 2 total units PRBC. Leukopenia resolved now 4.0 Anemia improving 9.6 Macrocytosis likely related to reticulocytosis Normal bilirubin Negative Tiffanie B12 high (received B12 shot in our office on record review) Folate normal Iron normal MMA pending Plt normal Coagulation: PT 10.4, INR 1.0, PTT 22.6 Retic count: 4.6 TSH: Slightly elevated ~5 Pathologic slide review: megaloblastic anemia with no schistocytes LDH elevated, haptoglobin low -Consult hematology, appreciate assistance -Unlikely to be hemolytic anemia given negative Tiffanie -Some other studies ordered, pending -If Hgb remains stable into tomorrow likely she can be discharged with outpatient follow up (possibly even today if ok per hematology) -Will replete B12 outpatient weekly IM x4 doses, then monthly -Hold AZT for now since anemia and leukopenia are known side effects (2) Leukopenia Code(s): D72.819 - Decreased white blood cell count, unspecified Status: Resolved (3) Headache Code(s): R51 - Headache Status: Acute Plan: Likely benign by history and exam -Give Toradol 60 mg IM x1 which has helped her in the past (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 Plan: Patient with history of Behcet's syndrome Hold AZT for now Continue home prednisone 15 mg each morning at 5 AM and 1 mg each day at noon (5) Type 2 diabetes mellitus Code(s): E11.9 - Type 2 diabetes mellitus without complications Status: Chronic Plan: Patient with history of type 2 diabetes mellitus currently on daily prednisone Patient currently has continues glucose monitoring and insulin pump -Accu-checks AC/HS to assist, but patient manages insulin herself (6) Chronic pain Code(s): G89.29 - Other chronic pain Status: Chronic Plan: Patient with history of chronic pain requiring multiple medications Medications: Continue home tizanidine 2 mg twice daily Continue home gabapentin 300 mg nightly Hold home medical marijuana Patient reports she previously received daily hydrocodone and tramadol; Continue hydrocodone/APAP 5 mg HS at this time and her home tramadol/APAP combo QID PRN (7) SVT (supraventricular tachycardia) Code(s): I47.1 - Supraventricular tachycardia Status: Chronic Plan: Patient with history of SVT Medications: Continue home digoxin 250 mcg daily -No events on telemetry --> discontinue telemetry (8) Hypothyroidism Code(s): E03.9 - Hypothyroidism, unspecified Status: Chronic Plan: TSH slightly elevated -Continue current dose of synthroid -Check free T4 (9) GERD (gastroesophageal reflux disease) Code(s): K21.9 - Gastro-esophageal reflux disease without esophagitis Status: Chronic Plan: Patient with history of gastroesophageal reflux disease Medications: Continue home pantoprazole daily (10) Insomnia Code(s): G47.00 - Insomnia, unspecified Status: Chronic Plan: Patient with history of insomnia Medications: Continue home trazodone nightly (11) Depression Code(s): F32.9 - Major depressive disorder, single episode, unspecified Status : Chronic Plan: Patient with history of depression Medications: Continue home duloxetine 60 mg daily (12) Nutrition, metabolism, and development symptoms Code(s): R63.8 - Other symptoms and signs concerning food and fluid intake Status: Acute Plan: Diet: Regular diet as tolerated (keeps her own carb counts and adjusts insulin accordingly) Fluids: PO only Electrolytes: continue to monitor DVT prophylaxis: Deferred pharm PPX due to symptomatic anemia; SCDs Prophylaxis: Zofran as needed for nausea/vomiting, Tylenol as needed for fever, constipation protocol - Assessment and Plan Discharge Planning: Home today/tomorrow pending hematology clearance (3) Headache Qualifiers: Headache type: unspecified Headache chronicity pattern: acute headache Intractability: not intractable Qualified Code(s): R51 - Headache
[2018-06-09] MEDS: predniSONE 1 MG Tablet PO SCH (11:31)
--- NOTE | 2018-06-09 12:37 | P.PNONC ---
Subjective Interval history: Pt resting comfortably in bed. She complains of a frontal h/a. She relates it to possibly not taking her claritin and flonase. Denies nasal congestion. She reports one episode of feeling lightheaded this a.m. Several episodes yesterday. 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 Objective Vital Signs/Intake & Output: Vital Signs 06/08/18 14:40 06/08/18 14:59 06/08/18 15:15 Temperature 98.0 F 98.0 F 98.2 F Pulse Rate 89 88 88 Respiratory Rate 16 20 Blood Pressure 115/54 L 109/56 L 107/53 L Pulse Oximetry 96 96 92 L 06/08/18 15:54 06/08/18 18:00 06/08/18 20:00 Temperature 98.3 F 98.1 F Pulse Rate 84 86 90 Respiratory Rate 20 16 Blood Pressure 130/60 125/58 L Pulse Oximetry 98 94 L 06/08/18 21:28 06/08/18 23:21 06/08/18 23:47 Temperature 98.0 F Pulse Rate 91 H Respiratory Rate 16 16 Blood Pressure 106/53 L Pulse Oximetry 98 95 06/09/18 00:00 06/09/18 03:16 06/09/18 04:15 Temperature 98.0 F Pulse Rate 95 H 89 84 Respiratory Rate 16 Blood Pressure 112/57 L Pulse Oximetry 94 L 06/09/18 08:00 Temperature 98.2 F Pulse Rate 88 Respiratory Rate 18 Blood Pressure 106/53 L Pulse Oximetry 94 L Intake & Output 06/08/18 06/09/18 06/09/18 18:59 06:59 18:59 Intake Total 1969 / 1969 1070 / 1070 100 / 100 Output Total 2099 1450 / 1450 Balance -130 / -130 -380 / -380 100 / 100 Weight 69.7 kg Intake: IV 850 / 850 350 / 350 100 / 100 NS Inj 1,000 ML @ 100 mls/hr IV 750 / 750 .CONT .Q10H [facility] Rx#:[id number] NS Inj 250 ML @ 15 mls/hr IV. 250 / 250 SIG ONCE [facility] Rx#:[id number] Rocephin Inj 1,000 MG In NS Inj 100 / 100 100 / 100 100 / 100 100 ML @ 200 mls/hr IV.SIG Q12H [facility] Rx#:[id number] Oral 720 / 720 720 / 720 Intake (Blood Product) Amt 400 / 400 Rbc As-3 Leukoreduced Unit 400 / 400 [id number] Output: Urine 2100 / 2100 1450 / 1450 Other: Date of Last Bowel Movement 06/08/18 06/08/18 # Bowel Movements 0 0 Result Diagrams: 06/09/18 04:17 06/09/18 04:17 Laboratory Results: Laboratory Results - last 24 hr 06/07/18 06/08/18 06/08/18 16:50 11:47 17:47 WBC RBC Hgb Hct MCV MCH MCHC RDW Plt Count MPV Prelim Diff (Auto) Neut % (Auto) Lymph % (Auto) [place] % (Auto) Eos % (Auto) Baso % (Auto) Neut # (Auto) Lymph # (Auto) [place] # (Auto) Eos # (Auto) Baso # (Auto) WBC Differential Seg Neuts % (Manual) Band Neuts % (Manual) Lymphocytes % (Manual) Monocytes % (Manual) Abs Neuts (Manual) Differential Comment Platelet Estimate Platelet Morphology Dimorphic RBCs Polychromasia Ovalocytes Acanthocytes (Spur) Keratocytes Smear Path Review Retic Count Absolute Retic Haptoglobin Fibrinogen Sodium Potassium Chloride Carbon Dioxide Anion Gap BUN Creatinine Estimated GFR POC Glucose 161 H Random Glucose Calcium Ferritin 445 H Vitamin B12 1307 H Folate Greater than 20.0 H MTS Gel Crossmatch See Detail 06/08/18 06/08/18 06/09/18 19:34 19:34 04:17 WBC 4.0 RBC 2.34 L Hgb 10.0 L D 9.6 L Hct 28.4 L 27.1 L MCV 116.2 H D MCH 41.0 H MCHC 35.3 RDW 33.5 H Plt Count 287 MPV 7.1 Prelim Diff (Auto) Slide review pending Neut % (Auto) 69.1 Lymph % (Auto) 20.1 [place] % (Auto) 9.6 H Eos % (Auto) 0.3 Baso % (Auto) 0.9 Neut # (Auto) 2.8 Lymph # (Auto) 0.8 L [place] # (Auto) 0.4 Eos # (Auto) 0.0 Baso # (Auto) 0.0 WBC Differential Manual diff final Seg Neuts % (Manual) 66 Band Neuts % (Manual) 6 Lymphocytes % (Manual) 23 Monocytes % (Manual) 5 Abs Neuts (Manual) 2.9 Differential Comment . Platelet Estimate Normal Platelet Morphology Normal Dimorphic RBCs Present H Polychromasia 2.5 H Ovalocytes 1+ H Acanthocytes (Spur) Occ H Keratocytes Occ H Smear Path Review Retic Count 3.9 H Absolute Retic 90.7 Haptoglobin Fibrinogen Sodium Potassium Chloride Carbon Dioxide Anion Gap BUN Creatinine Estimated GFR POC Glucose Random Glucose Calcium Ferritin Vitamin B12 Folate MTS Gel Crossmatch 06/09/18 06/09/18 06/09/18 04:17 10:55 10:55 WBC RBC Hgb Hct MCV MCH MCHC RDW Plt Count MPV Prelim Diff (Auto) Neut % (Auto) Lymph % (Auto) [place] % (Auto) Eos % (Auto) Baso % (Auto) Neut # (Auto) Lymph # (Auto) [place] # (Auto) Eos # (Auto) Baso # (Auto) WBC Differential Seg Neuts % (Manual) Band Neuts % (Manual) Lymphocytes % (Manual) Monocytes % (Manual) Abs Neuts (Manual) Differential Comment Platelet Estimate Platelet Morphology Dimorphic RBCs Polychromasia Ovalocytes Acanthocytes (Spur) Keratocytes Smear Path Review Retic Count Absolute Retic Haptoglobin Less than 10 L Fibrinogen 316 Sodium 140 Potassium 4.1 Chloride 105 Carbon Dioxide 27.8 Anion Gap 7 BUN 17 Creatinine 0.80 Estimated GFR 72 L POC Glucose Random Glucose 86 Calcium 8.7 D Ferritin Vitamin B12 Folate MTS Gel Crossmatch Culture Results: Microbiology 06/07/18 22:10 Stool Occult Blood (SUZIE) - Final Stool Hemoccult negative Medications: Active Medications Generic Name Dose Route Start Last Admin Trade Name Freq PRN Reason Stop Dose Admin Hydrocodone Bitart/Acetaminophen 1 tab 06/08/18 21:00 06/08/18 21:00 [place] 5/325 PO 1 tab HS [facility] Administration Digoxin 250 mcg 06/08/18 09:00 06/09/18 09:35 Lanoxin PO 250 mcg DAILY [facility] Administration Duloxetine HCl 80 mg 06/08/18 09:00 06/09/18 09:35 Cymbalta PO 80 mg DAILY [facility] Administration Gabapentin 300 mg 06/07/18 21:00 06/08/18 20:29 Neurontin PO 300 mg HS [facility] Administration Ceftriaxone Sodium 1,000 mg/ 100 mls @ 200 mls/hr 06/08/18 08:00 06/09/18 10: 10 Sodium Chloride IV.SIG Infused Q12H [facility] Infusion Levothyroxine Sodium 100 mcg 06/08/18 06:00 06/09/18 05:02 Synthroid PO 100 mcg DAILY@0600 [facility] Administration Pantoprazole Sodium 40 mg 06/08/18 09:00 06/09/18 09:35 Protonix PO 40 mg DAILY [facility] Administration Phenazopyridine HCl 200 mg 06/09/18 10:00 06/09/18 11:15 Pyridium PO 06/10/18 21:01 200 mg BID [facility] Administration Prednisone 16 mg 06/08/18 05:00 06/09/18 04:48 Deltasone Liq PO 16 mg DAILY@0500 [facility] Administration Prednisone 1 mg 06/08/18 11:00 06/09/18 11:31 Deltasone PO 1 mg AC LUNCH [facility] Administration Sodium Chloride 2 ml 06/07/18 21:00 06/09/18 09:35 Ns Flush IV.FLUSH 2 ml BID [facility] Administration Tizanidine HCl 2 mg 06/07/18 21:00 06/09/18 10:49 Zanaflex PO Not Given BID [facility] Tramadol/Acetaminophen 1 tab 06/08/18 10:24 06/09/18 04:48 Ultracet 37.5/325 Mg PO 1 tab QID PRN Administration PAIN SCALE 1-10 Trazodone HCl 50 mg 06/07/18 20:44 06/07/18 22:24 Desyrel PO 50 mg HS PRN Administration Insomnia Objective Remarks: GENERAL: Well-nourished, well-developed female patient, in no acute distress. SKIN: Warm and dry. faint red rash to right foot. HEAD: Normocephalic. EYES: No scleral icterus. No injection or drainage. NECK: Supple, trachea midline. CARDIOVASCULAR: Regular rate and rhythm without murmurs. RESPIRATORY: Breath sounds equal bilaterally. No accessory muscle use. GASTROINTESTINAL: Abdomen soft, non-tender, nondistended. EXTREMITIES: No cyanosis, or edema. MUSCULOSKELETAL: Adequate muscle tone. NEUROLOGICAL: No obvious focal deficit. Awake, alert, and oriented x3. PSYCHIATRIC: Appropriate mood and affect; insight and judgment normal. Assessment/Plan - Plan Ms. 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 She was hospitalized with symptomatic anemia and hematology was consulted. Plan: 1. Macrocytic anemia, hgb today 9.6, s/p 2 units pRBC on 06/07 & 06/08. Haptoglobin < 10L, Tiffanie negative, LDH slightly elevated, elevated retic count. 2. Will obtain ultrasound spleen. 3. Continue to monitor CBC. 4. Await further studies. Recommend monitoring for an additional 1-2 days.
[2018-06-09] MEDS: Loratadine 10 MG Tablet PO SCH (12:55)
--- NOTE | 2018-06-09 16:22 | US ---
EXAM DATE: 06/09/2018 4:00 PM EST AGE/SEX: 62 years / Female INDICATIONS: Anemia. CLINICAL DATA: This is the patient's initial encounter. Patient reports that signs and symptoms have been present for 1 day and indicates a pain score of 0/10. MEDICAL/SURGICAL HISTORY: Gastroesophageal reflux disease. Hypothyroidism. Anxiety. Depression . Diabetes. POTS syndrome. Total knee replacement, right. Appendectomy. Cholecystectomy. Right kn ee surgery. Back surgery. Tonsillectomy. COMPARISON: No prior exams available for comparison. MEASUREMENTS: Spleen: 10.1 cm. FINDINGS: Spleen: No focal lesion. Other: None. CONCLUSION: 1. Negative ultrasound of spleen. Electronically signed by: Osmin Pruett MD Board Certified Radiologist 06/09/2018 4:21 PM EST
[2018-06-09] MEDS: Gabapentin 100 MG Capsule PO SCH (20:54)
[2018-06-09] MEDS: traZODone 50 MG Tablet PO PRN (22:19)
[2018-06-10] MEDS: predniSONE Liq 5 MG/5 ML UDC PO SCH (05:41)
[2018-06-10] MEDS: Levothyroxine 100 MCG Tablet PO SCH (05:42)
[2018-06-10] MEDS: Loratadine 10 MG Tablet PO SCH (09:21)
[2018-06-10] MEDS: Digoxin 250 MCG Tablet PO SCH (09:23)
[2018-06-10 09:33] LABS: Baso % (Auto) 0.7 % (0.0-2.0); Eos % (Auto) 0.2 % (0.0-4.0); Hematocrit 29.7 % (35.0-46.0); Hemoglobin 10.2 gm/dL (11.6-15.3); Lymph # (Auto) 0.3 th/mm3 (1.0-4.8); Lymph % (Auto) 10.6 % (9.0-44.0); Mean Corpuscular HGB Conc 34.4 % (32.0-36.0); Mean Corpuscular Hemoglobin 40.6 pg (27.0-34.0); Mean Corpuscular Volume 118.2 fL (80.0-100.0); Mean Platelet Volume 7.1 fL (7.0-11.0); Mono # (Auto) 0.3 th/mm3 (0.0-0.9); Mono % (Auto) 8.6 % (0.0-8.0); Neut # (Auto) 2.5 th/mm3 (1.8-7.7); Neut % (Auto) 79.9 % (16.0-70.0); Platelet Count 297 th/mm3 (150-450); Red Blood Count 2.52 mil/mm3 (4.00-5.30); Red Cell Distribution Width 32.7 % (11.6-17.2); White Blood Count 3.2 th/mm3 (4.0-11.0)
[2018-06-10 10:01] LABS: Calcium 8.7 mg/dL (8.5-10.1); Carbon Dioxide 28.8 meq/L (21.0-32.0); Potassium 4.9 meq/L (3.5-5.1)
[2018-06-10] MEDS: predniSONE 1 MG Tablet PO SCH (10:08)
[2018-06-10 10:16] LABS: Lymphocytes 14 % (9-44); Metamyelocytes 1 % (0-1); Monocytes 4 % (0-8)
[2018-06-10 10:17] LABS: Platelet Estimate Normal (Normal); Platelet Morphology Normal (Normal)
--- NOTE | 2018-06-10 10:23 | P.PNONC ---
Subjective Interval history: Patient sitting in chair. She reports that she feels great today. She states I feel better than I have in quite some time. No episodes of lightheadedness today. She inquires if she may follow-up with our hematology services as an outpatient. Her information will be sent to new patient referrals. Objective Vital Signs/Intake & Output: Vital Signs 06/09/18 12:00 06/09/18 16:00 06/09/18 20:00 Temperature 98.3 F 98.3 F 97.4 F L Pulse Rate 72 74 84 Respiratory Rate 18 18 17 Blood Pressure 127/59 L 120/63 123/70 Pulse Oximetry 96 96 92 L 06/10/18 00:00 06/10/18 04:00 Temperature 98.3 F 97.7 F Pulse Rate 82 87 Respiratory Rate 18 16 Blood Pressure 118/55 L 104/50 L Pulse Oximetry 92 L 92 L Intake & Output 06/09/18 06/10/18 06/10/18 18:59 06:59 18:59 Intake Total 100 / 100 220 / 220 100 / 100 Output Total 600 / 600 Balance 100 / 100 -380 / -380 100 / 100 Weight 63.3 kg Intake: IV 100 / 100 100 / 100 100 / 100 Rocephin Inj 1,000 MG In NS Inj 100 / 100 100 / 100 100 / 100 100 ML @ 200 mls/hr IV.SIG Q12H [facility] Rx#:[id number] Oral 120 / 120 Output: Urine 600 / 600 Other: Date of Last Bowel Movement 06/08/18 06/08/18 Result Diagrams: 06/10/18 08:10 06/10/18 08:10 Laboratory Results: Laboratory Results - last 24 hr 06/09/18 06/09/18 06/10/18 10:55 10:55 08:10 WBC 3.2 L RBC 2.52 L Hgb 10.2 L Hct 29.7 L MCV 118.2 H MCH 40.6 H MCHC 34.4 RDW 32.7 H Plt Count 297 MPV 7.1 Prelim Diff (Auto) Slide review pending Neut % (Auto) 79.9 H Lymph % (Auto) 10.6 [place] % (Auto) 8.6 H Eos % (Auto) 0.2 Baso % (Auto) 0.7 Neut # (Auto) 2.5 Lymph # (Auto) 0.3 L [place] # (Auto) 0.3 Eos # (Auto) 0.0 Baso # (Auto) 0.0 WBC Differential Manual diff final Seg Neuts % (Manual) 64 Band Neuts % (Manual) 17 H Lymphocytes % (Manual) 14 Monocytes % (Manual) 4 Metamyelocytes % (Man) 1 Abs Neuts (Manual) 2.6 Differential Comment . Platelet Estimate Normal Platelet Morphology Normal Keratocytes Occ H Haptoglobin Less than 10 L Fibrinogen 316 Sodium Potassium Chloride Carbon Dioxide Anion Gap BUN Creatinine Estimated GFR Random Glucose Calcium 06/10/18 08:10 WBC RBC Hgb Hct MCV MCH MCHC RDW Plt Count MPV Prelim Diff (Auto) Neut % (Auto) Lymph % (Auto) [place] % (Auto) Eos % (Auto) Baso % (Auto) Neut # (Auto) Lymph # (Auto) [place] # (Auto) Eos # (Auto) Baso # (Auto) WBC Differential Seg Neuts % (Manual) Band Neuts % (Manual) Lymphocytes % (Manual) Monocytes % (Manual) Metamyelocytes % (Man) Abs Neuts (Manual) Differential Comment Platelet Estimate Platelet Morphology Keratocytes Haptoglobin Fibrinogen Sodium 140 Potassium 4.9 D Chloride 103 Carbon Dioxide 28.8 Anion Gap 8 BUN 20 H Creatinine 1.11 H Estimated GFR 50 L Random Glucose 117 H Calcium 8.7 Culture Results: Microbiology 06/08/18 01:00 Urine Culture - Preliminary Clean Catch Urine Immature growth - reincubate 06/07/18 22:10 Stool Occult Blood (SUZIE) - Final Stool Hemoccult negative Imaging Studies: Impressions Spleen Ultrasound 06/09/18 00:00 CONCLUSION: 1. Negative ultrasound of spleen. Medications: Active Medications Generic Name Dose Route Start Last Admin Trade Name Freq PRN Reason Stop Dose Admin Hydrocodone Bitart/Acetaminophen 1 tab 06/08/18 21:00 06/09/18 20:54 [place] 5/325 PO 1 tab HS [facility] Administration Digoxin 250 mcg 06/08/18 09:00 06/10/18 09:23 Lanoxin PO 250 mcg DAILY [facility] Administration Duloxetine HCl 80 mg 06/08/18 09:00 06/10/18 09:22 Cymbalta PO 80 mg DAILY [facility] Administration Fluticasone Propionate 2 spray 06/09/18 13:00 06/10/18 09:25 Flonase Nasal [place] NASAL 2 spray DAILY [facility] Administration Gabapentin 300 mg 06/07/18 21:00 06/09/18 20:54 Neurontin PO 300 mg HS [facility] Administration Ceftriaxone Sodium 1,000 mg/ 100 mls @ 200 mls/hr 06/08/18 08:00 06/10/18 10: 00 Sodium Chloride IV.SIG Infused Q12H [facility] Infusion Levothyroxine Sodium 100 mcg 06/08/18 06:00 06/10/18 05:42 Synthroid PO 100 mcg DAILY@0600 [facility] Administration Loratadine 10 mg 06/09/18 12:15 06/10/18 09:21 Claritin PO 10 mg DAILY [facility] Administration Pantoprazole Sodium 40 mg 06/08/18 09:00 06/10/18 09:23 Protonix PO 40 mg DAILY [facility] Administration Phenazopyridine HCl 200 mg 06/09/18 10:00 06/10/18 09:22 Pyridium PO 06/10/18 21:01 200 mg BID [facility] Administration Prednisone 16 mg 06/08/18 05:00 06/10/18 05:41 Deltasone Liq PO 16 mg DAILY@0500 [facility] Administration Prednisone 1 mg 06/08/18 11:00 06/10/18 10:08 Deltasone PO 1 mg AC LUNCH [facility] Administration Sodium Chloride 2 ml 06/07/18 21:00 06/10/18 09:25 Ns Flush IV.FLUSH 2 ml BID [facility] Administration Tizanidine HCl 2 mg 06/07/18 21:00 06/10/18 09:25 Zanaflex PO Not Given BID [facility] Tramadol/Acetaminophen 1 tab 06/08/18 10:24 06/09/18 17:12 Ultracet 37.5/325 Mg PO 1 tab QID PRN Administration PAIN SCALE 1-10 Trazodone HCl 50 mg 06/07/18 20:44 06/09/18 22:19 Desyrel PO 50 mg HS PRN Administration Insomnia Objective Remarks: GENERAL: Well-nourished, well-developed female patient, in no acute distress. SKIN: Warm and dry. Rash to right foot. HEAD: Normocephalic. EYES: No scleral icterus. No injection or drainage. NECK: Supple, trachea midline. CARDIOVASCULAR: Regular rate and rhythm without murmurs. RESPIRATORY: Breath sounds equal bilaterally. No accessory muscle use. GASTROINTESTINAL: Abdomen soft, non-tender, nondistended. EXTREMITIES: No cyanosis, or edema. MUSCULOSKELETAL: Adequate muscle tone. NEUROLOGICAL: No obvious focal deficit. Awake, alert, and oriented x3. PSYCHIATRIC: Appropriate mood and affect; insight and judgment normal. Assessment/Plan - Plan Ms. 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 She was hospitalized with symptomatic anemia and hematology was consulted. Plan: 1. Macrocytic anemia, hgb today 10.2, s/p 2 units pRBC on 06/07 & 06/08. Haptoglobin < 10L, Tiffanie negative, LDH slightly elevated, elevated retic count. Flow cytometry is pending. 2. Ultrasound spleen was normal. 3. Patient aware that some of her workup is still pending. Upon discharge she may follow-up in the outpatient clinic for these results.
[2018-06-10] MEDS: traMADol/Acetaminophen 37.5/325 MG Tablet PO PRN (10:57)
--- NOTE | 2018-06-10 11:41 | P.DS ---
Date of admission: 06/07/18 20:48 Primary care physician: UNKNOWN Brief History from admission: Mrs. Arce is a 62-year-old female presenting to the ED with symptomatic anemia. 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 She is currently managed by Dr. Rasmussen, rheumatology, who orders monthly surveillance laboratory evaluations per patient. She states that on 04/29/18 her hemoglobin was 11.1, however repeat laboratory studies on 05/29/18 showed her hemoglobin to be 7.9. Patient was then evaluated by Dr. Rasmussen, who recommended repeat CBC on 05/31/18 which showed a hemoglobin of 7.8. He then administered a vitamin B12 shot and instructed her to follow-up with her PCP which she was evaluated today at the [facility] where it was recommended she present to the ED for further evaluation due to suspected symptomatic anemia. She states over this timeframe of the last month she has felt daily fatigue, lightheadedness, intermittent tachycardia, extremity cramping, and increased difficulty walking. She states that the most concerning symptom to her is her fatigue and she states that it is "all day, every day." She states that she has no history of anemia and has not previously received a blood transfusion. She states that she had a "completely normal colonoscopy" a few years ago and denies any black/bloody stools. She denies any hematuria, however does state that her urine has become darker over the last 24 hours with a slight increase in urinary frequency. Otherwise she has no acute complaints. Patient update on day of discharge: 62 yo female with Behcet disease admitted for symptomatic anemia. Fatigue, [place], and lightheadedness better. Headache resolved. Has some mild joint pains she attributes to her Behcet disease, nothing new or unusual. DS: Diagnosis - Discharge Diagnosis (1) Symptomatic anemia Status: Acute (2) Leukopenia Status: Resolved (3) Headache Status: Acute (4) Behcets syndrome Status: Chronic (5) Type 2 diabetes mellitus Status: Chronic (6) Chronic pain Status: Chronic (7) SVT (supraventricular tachycardia) Status: Chronic (8) Hypothyroidism Status: Chronic (9) GERD (gastroesophageal reflux disease) Status: Chronic (10) Insomnia Status: Chronic (11) Depression Status: Chronic (12) Nutrition, metabolism, and development symptoms Status: Acute DS: Medications - Discharge Medications Prescriptions: tramadol 50 mg PO Q6H PRN #12 tab PRN Reason: Pain, Severe DS: Summary Hospital Course: Very pleasant 62 yo female admitted for symptomatic anemia found to be megaloblastic anemia. 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 Due to her macrocytic anemia, she received 2 units pRBC and hemoglobin increased appropriately. Her hematologic work-up is still pending, however she now is essentially asymptomatic and her hemoglobin is stable so she is medically cleared for discharge. Upon discharge she may follow-up with the consulting blacktop spreader Dr. Webster in the outpatient clinic for these results. - Time Spent with Patient Total time spent providing and/or coordinating discharge services: Less than 30 minutes - Quality: VTE Deep Vein Thrombosis/Pulmonary Embolism Present on Admission: No Exam Vital signs: Vital Signs 06/09/18 12:00 06/09/18 16:00 06/09/18 20:00 Temperature 98.3 F 98.3 F 97.4 F L Pulse Rate 72 74 84 Respiratory Rate 18 18 17 Blood Pressure 127/59 L 120/63 123/70 Pulse Oximetry 96 96 92 L 06/10/18 00:00 06/10/18 04:00 Temperature 98.3 F 97.7 F Pulse Rate 82 87 Respiratory Rate 18 16 Blood Pressure 118/55 L 104/50 L Pulse Oximetry 92 L 92 L Intake & Output 06/09/18 06/10/18 06/10/18 18:59 06:59 18:59 Intake Total 100 / 100 220 / 220 100 / 100 Output Total 600 / 600 Balance 100 / 100 -380 / -380 100 / 100 Weight 63.3 kg Intake: IV 100 / 100 100 / 100 100 / 100 Rocephin Inj 1,000 MG In NS Inj 100 / 100 100 / 100 100 / 100 100 ML @ 200 mls/hr IV.SIG Q12H [facility] Rx#:[id number] Oral 120 / 120 Output: Urine 600 / 600 Other: Date of Last Bowel Movement 06/08/18 06/08/18 - Constitutional no acute distress, average body habitus - Routine HEENT Exam Head: Present: normocephalic, atraumatic ENT: Present: mucous membranes moist - Routine Respiratory Exam Present: CTA bilaterally. Absent: accessory muscle use, wheezes, crackles - Routine Cardiovascular Exam Present: RRR, S1, S2. Absent: murmur - Routine Abdominal Exam Present: soft. Absent: tenderness - Routine Extremities Exam Absent: cyanosis, edema - Routine Skin Exam Present: intact, rash (right foot dorsally, erythematous papules) - Routine Neurological Exam Present: alert, moving all extremities, normal speech. Absent: altered mental status Results Procedures completed during hospitalization: None Labs on day of discharge: Labs from last 24 hours 06/10/18 06/10/18 06/09/18 08:10 08:10 10:55 WBC 3.2 L RBC 2.52 L Hgb 10.2 L Hct 29.7 L MCV 118.2 H MCH 40.6 H MCHC 34.4 RDW 32.7 H Plt Count 297 MPV 7.1 Prelim Diff (Auto) Slide review pending Neut % (Auto) 79.9 H Lymph % (Auto) 10.6 [place] % (Auto) 8.6 H Eos % (Auto) 0.2 Baso % (Auto) 0.7 Neut # (Auto) 2.5 Lymph # (Auto) 0.3 L [place] # (Auto) 0.3 Eos # (Auto) 0.0 Baso # (Auto) 0.0 WBC Differential Manual diff final Seg Neuts % (Manual) 64 Band Neuts % (Manual) 17 H Lymphocytes % (Manual) 14 Monocytes % (Manual) 4 Metamyelocytes % (Man) 1 Abs Neuts (Manual) 2.6 Differential Comment . Platelet Estimate Normal Platelet Morphology Normal Keratocytes Occ H Haptoglobin Less than 10 L [facility] Flow Cytometry Sodium 140 Potassium 4.9 D Chloride 103 Carbon Dioxide 28.8 Anion Gap 8 BUN 20 H Creatinine 1.11 H Estimated GFR 50 L Random Glucose 117 H Calcium 8.7 06/09/18 04:17 WBC RBC Hgb Hct MCV MCH MCHC RDW Plt Count MPV Prelim Diff (Auto) Neut % (Auto) Lymph % (Auto) [place] % (Auto) Eos % (Auto) Baso % (Auto) Neut # (Auto) Lymph # (Auto) [place] # (Auto) Eos # (Auto) Baso # (Auto) WBC Differential Seg Neuts % (Manual) Band Neuts % (Manual) Lymphocytes % (Manual) Monocytes % (Manual) Metamyelocytes % (Man) Abs Neuts (Manual) Differential Comment Platelet Estimate Platelet Morphology Keratocytes Haptoglobin [facility] Flow Cytometry Pending Sodium Potassium Chloride Carbon Dioxide Anion Gap BUN Creatinine Estimated GFR Random Glucose Calcium LDH elevated Haptoglobin low B12, Folate, Iron replete - Impressions ITS Impressions Spleen Ultrasound 06/09/18 00:00 CONCLUSION: 1. Negative ultrasound of spleen. Discharge Plan - Discharge Disposition Patient Disposition: 01 Discharge Home - Discharge Condition Condition: Good - Discharge Order Discharge Orders: Discharge Order (Routine); Ordered 06/10/18 Ordered By: Rodrigo Caballero R3 - Discharge Details Anticipated Discharge Date: 06/10/18 - Physicians Team Primary Care Provider: UNKNOWN, Attending Provider: Prachi Farooq Other Providers: Annel Webster
--- NOTE | 2018-06-21 13:34 | PQ ---
Physician Query Response Document PATIENT: Porsha Arce : 1955 ADMIT DATE: 06/07/2018 8:48 PM DISCH DATE: 06/10/2018 1:50 PM RESPONDING PROVIDER #: JOSH QUERY TEXT: Rule Out Condition Clarification Pt has documented Urinary tract infection/UTI noted as ?rule out? or similar terminology such as susp ected, probable, etc. Please clarify status of this condition: -Patient has condition -Condition was ruled out Please provide corresponding diagnosis for patient's clinical picture and associated treatment -Patient had condition which is now resolved -Other (please specify) -Clinically unable to determine -Unknown If you have any additional questions/comments and/or concerns, please do not hesitate to reach out to the CDI/Coding Hotline, Ext. [phone]. The patient's Clinical Indicators include: Addendum to FP PN 06/09/18: ADDENDUM Additional problem: UTI - Continue IV Rocephin 1 gm Q12H - Await Culture results - Pyridium 200 mg BID x2 days for symptoms Addendum Documented By: Rodrigo Caballero MD 06/09/18 1033 Urine culture-final as of 06/10/18 shows <10,000 cfu/mL gram negative rods-no further workup. Antibiotic (Ceftriaxone) given 06/10/18 prior to receipt of final culture results. Diagnosis of UTI not listed in Discharge Summary Patient sent home on sulfamethoxazole-trimethoprim as documented in Discharge Instructions. Query created by: Tracy Holliday on 06/15/2018 1:15 PM RESPONSE TEXT: She did not have a UTI Electronically signed by: Prachi Farooq MD 06/21/2018 1:30 PM
== END 2018-06-10 13:50 | disposition home or self-care (01) | DRG 812 ==
LOC: NEDA 15:13 → NEPC 15:13 → N04 19:20 → NEDA 19:25
PROVIDERS: ADMIT Family Medicine; ATTEND Family Medicine
CPT/HCPCS: 36430; 76770; 80048; 80053; 81001; 82272; 82525; 82607; 82728; 82746; 82948; 82962; 83010; 83540; 83550; 83615; 83918; 83921; 83935; 84300; 84443; 85014; 85018; 85025; 85044; 85384; 85610; 85730; 86850; 86880; 86900; 86901; 86923; 87086; 88184; 88185; 99285; J0696; J1885; J3420; J7030; J7050; J7500; J7506; J7512; P9016